=== PATIENT | female | born 1955 | race Caucasian/White ===

== ENCOUNTER 2022-09-08 09:37 | Emergency (ER) | payer MEDICARE, SELFPAY ==
[2022-09-08 09:45] VITALS: PULSE 86; RESP 16; O2SAT 70
[2022-09-08 09:47] VITALS: PULSE 98; RESP 16; O2SAT 73
[2022-09-08 09:53] VITALS: BP 129/64; O2SAT 90
--- NOTE | 2022-09-08 10:04 | ED.SOB ---
HPI - SOB/Dyspnea General Chief Complaint: Shortness of Breath/Dyspnea Stated Complaint: SOB Time Seen by Provider: 09/08/22 09:55 Source: patient, family, RN notes reviewed and old records reviewed Mode of arrival: ambulatory Limitations: clinical condition History of Present Illness HPI Narrative: 67 year old female accompanied by granddaughter presents to express care with stated complaints of patient having difficulty with breathing. 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 Grand daughter trying to get her established with doctor and get her Medicaid started. Patient states that they would not let her bring her home oxygen since she still owed on machine. Patient has history of COPD and was on oxygen per 3 L per nasal cannula prior to coming to [facility] and patient admits to continuing to use tobacco daily. Patient reports that she has been taking her Keppra, and her insulin and has an Albuterol inhaler but has been without other medications. On arrival to treatment room Oxygen Saturation 70%, dusky in color, accessory muscle use noted but not tachypneic, within 10 minute saturation up to 90%. Grand daughter states that she is not sure about all of grandmother's medical history, she does have a list of patient's medications on her phone. MD gill
[2022-09-08 10:07] VITALS: BP 126/74; RESP 17; O2SAT 93
== END 2022-09-08 10:07 | disposition short-term general hospital (02) ==
PROVIDERS: Emergency Provider Registered Nurse
DX: J44.1 Chronic obstructive pulmonary disease with (acute) exacerbation (principal); F17.210 Nicotine dependence, cigarettes, uncomplicated
CPT/HCPCS: 99215; G0463

== ENCOUNTER 2022-09-08 10:23 | Inpatient (IN) | payer MEDICARE, MEDICAID, SELFPAY ==
[2022-09-08] VITALS (43 sets, daily range): BP systolic 106–151; BP diastolic 49–85; PULSE 52–103; RESP 12–28; TEMP 36.4; O2SAT 80–100; BMI 20.2
--- NOTE | ~2022-09-08 | XR_ITS ---
EXAMINATION: XR chest 2V DATE: 09/08/2022 10:55 INDICATION: Shortness of breath. TECHNIQUE: Frontal and lateral views of the chest were obtained. COMPARISON: None. FINDINGS: The patient is rotated to her right. There are coarse interstitial opacities throughout the lungs bilaterally. There are airspace opacities in right middle lobe. No pleural effusion or pneumot horax. The heart size is normal. There is a left internal jugular port with tip in proximal right atr ium. Calcified mediastinal lymph nodes are consistent with old granulomatous disease. IMPRESSION: 1. Diffuse lung disease, consistent with pulmonary edema versus pneumonia versus chronic lung disease . Reviewed, dictated and finalized at location A. IMPRESSION: 1. Diffuse lung disease, consistent with pulmonary edema versus pneumonia versu s chronic lung disease.
--- NOTE | ~2022-09-08 | CT_ITS ---
EXAMINATION: CTA chest PE protocol DATE: 09/08/2022 16:06 INDICATION: Shortness of breath, history of lung cancer TECHNIQUE: Computed tomography angiography (CTA) of the chest was performed with 100 mL Omnipaque-350 intravenous contrast timed to evaluate the pulmonary arteries. Coronal maximum intensity projection 3D-reconstructions were created by the technologist. The dose-length product (DLP) was 167.88 mGy-cm. Automated exposure control and iterative reconstruction technique were employed. COMPARISON: None. FINDINGS: The pulmonary arteries are well-opacified. No pulmonary embolism is identified. There is mo derate emphysema. There are airspace opacities of the right upper, middle, and lower lobes as well as in the left upper and lower lobes. No pleural effusion or pneumothorax. The heart size is normal. Th ere is mild bilateral hilar lymphadenopathy. There are masses medially in both breasts which measure 12 mm in the left and up to 10 mm on the right. There is mild sclerosis in the posterior aspect of th e T9 vertebral body on the right which extends into the lamina. There is thickening of the left adren al gland. Punctate calcifications in an otherwise normal spleen likely represent healed granulomatous disease. A left internal jugular Port-A-Cath ends with its tip in the proximal right atrium. IMPRESSION: 1. No pulmonary embolus identified. 2. Multifocal airspace opacities of the lungs, likely multifocal pneumonia. Given patient's history o f lung cancer, an area of underlying malignancy is not excluded. Follow-up CT in three months is pey[place] mmended. 3. Bilateral breast masses. Recommend correlation with mammography history. 4. Mild sclerosis of the T9 vertebral body, possible metastatic disease. Reviewed, dictated and finalized at location F. IMPRESSION: 1. No pulmonary embolus identified. 2. Multifocal airspace opacities of the lungs, likely multifocal pneumonia. Giv en patient's history of lung cancer, an area of underlying malignancy is not ex cluded. Follow-up CT in three months is recommended. 3. Bilateral breast masses. Recommend correlation with mammography history. 4. Mild sclerosis of the T9 vertebral body, possible metastatic disease.
--- NOTE | 2022-09-08 10:28 | ECG_ITS ---
Measurements Intervals [place] Rate: 87 P: 64 MD: 164 QRS: 28 QRSD: 73 T: 41 QT: 330 QTc: 399 Interpretive Statements SINUS RHYTHM POSSIBLE LEFT ATRIAL ENLARGEMENT [-0.1mV P WAVE IN V1/V2] NONSPECIFIC ST & T-WAVE ABNORMALITY BORDERLINE ECG NO PREVIOUS ECG AVAILABLE FOR COMPARISON Electronically Signed On 09-08-2022 12:54:29 CDT by Jose Alcazar M.D.
[2022-09-08 10:56] LABS: Basophils Percent Auto 0.2 % (0.2-1.2); Eosinophils Percent Auto 0.1 % (0-4.4); Hematocrit 42.8 % (37.0-47.0); Hemoglobin 13.2 g/dL (12.0-15.0); Immature Granulocyte Absolute 0.09 K/mm3 (0.00-0.031); Immature Granulocyte Percent A 0.6 % (0-0.5); Lymphocytes Absolute Auto 0.82 K/mm3 (0.9-3.2); Lymphocytes Percent Auto 5.8 % (18.3-44.2); Mean Corpuscular HGB Conc 30.8 g/dl (32-36); Mean Corpuscular Hemoglobin 26.8 pg (26-34); Mean Corpuscular Volume 86.8 fl (80-100); Mean Platelet Volume 9.6 fl (7.4-10.4); Monocytes Absolute Auto 0.7 K/mm3 (0.1-0.6); Monocytes Percent Auto 4.6 % (2.6-8.5); Neutrophils Absolute Auto 12.7 K/mm3 (1.3-6.7); Neutrophils Percent Auto 88.7 % (45.5-73.1); Platelet Count Result 251 k/mm3 (150-375); Red Blood Count 4.93 M/mm3 (4.2-5.4); Red Cell Distribution Width 14.1 % (11.5-14.5); White Blood Count 14.3 K/mm3 (4.5-10.0)
[2022-09-08 11:16] LABS: Alanine Aminotransferase 29 U/L (6-35); Albumin Level 3.5 g/dL (3.5-5.1); Alkaline Phosphatase 169 U/L (38-126); Aspartate Amino Transferase 32 U/L (14-36); Blood Urea Nitrogen 33 mg/dL (7-17); Calcium 8.2 mg/dL (8.4-10.2); Carbon Dioxide > 40 mmol/L (22-30); Chloride 93 mmol/L (98-107); Estimated CRCL calculation 31 ml/min; Estimated Glomerular Filt Rate 49; Glucose 246 mg/dL (65-110); Potassium 3.8 mmol/L (3.4-5.0); Sodium 137 mmol/L (137-145)
[2022-09-08] MEDS: IPRATROPIUM BR 0.02% INH SOLN 0.5 MG/2.5 ML VIAL 1.5 MG INHALATION (12:06)
[2022-09-08] MEDS: ALBUTEROL SULFATE NEB 2.5 MG/3 ML INH 15 MG INHALATION (12:06)
[2022-09-08 12:17] LABS: Alveolar/Arterial O2 Gradient 134.3 mmHg; Base Excess ABG 8.1 mEq/l (+/-2.0); Carboxyhemoglobin 2.4 % THb (0-2.0); Fractional Inspired Oxygen 36 %; HCO3 ABG 34.2 mEq/l (22.0-26.0); Methemoglobin ABG 0.1 %THb (0-1.5); Oxygen Content ABG 16.7 %vol (16.0-22.0); Oxygen Saturation ABG 91.2 % (95.0-100.0); PCO2 ABG 53.6 mmHg (35.0-45.0); PO2 ABG 60.2 mmHg (80.0-100.0); PO2 FiO2 Ratio Arterial Blood 1.67 %; Total Hemoglobin 13.7 g/dL (12.0-18.0); pH ABG 7.423 (7.350-7.450)
[2022-09-08 12:20] LABS: Device NASAL CANNULA; Oxyhemoglobin 86.5 % THb (90.0-100.0); Site Drawn LEFT BRACHIAL
--- NOTE | 2022-09-08 13:48 | PCCCNOTE ---
CC received call from bedside RN inquiring about getting patient home oxygen tanks. CC spoke with patient whom states she moved here from [place] one month ago, and left her oxygen in [place]. CC got the phone # to patients DME provider [employer] , called and spoke with Anne. Per Anne, the DME company received a call from patient after she moved out of home and came to [place] that her equipment was outside her [place] home. [employer] was able to retrieve all the equipment however, per anne, was under the impression that patient was no longer using oxygen and they did not follow up with patient. patient arrived in this ED in resp. failure requiring home O2. Per Anne with [employer], patient started home o2 08/30/2019 and would now be in the black hole per medicare. Per Anne, typically the DME company would still provide the equipment for the patient even thought medicare was no longer paying. In this situation, Anne states that we would likely not be able to find another DME company that would accept patients Medicare due to being in the black hole . Anne stated that they would be able to send oxygen tanks to patient here in [place] but this could take 2-3 business days. CC will give this information to Respiratory whom will follow through arranging home oxygen for patient. Meanwhile patient will be admitting for resp. failure. CC will continue to follow for any other needs that may arise at ext [phone].
--- NOTE | 2022-09-08 14:10 | ED.GENADULT ---
HPI - General Adult General Chief complaint: Shortness of Breath/Dyspnea Stated complaint: SOB Time Seen by Provider: 09/08/22 10:26 History of Present Illness HPI narrative: Patient is a 67-year-old female who presents ER with shortness of breath. Patient reports she woke up this morning felt more short of breath than typical and went to an urgent care. Her O2 saturation there was 78% and she was sent to our ER. Patient recently moved here from [place]. She is chronically O2 dependent on 3 L of oxygen but her oxygen provider would not let her leave the state with the tanks and so she has been without oxygen for several weeks. Patient also reports that she has a cancer in the liver but does not know what the name of the cancer is. She has received chemotherapy for but his not received any for 3 weeks. She has not yet tried to establish with an oncologist or PCP in the area. She denies fevers or chills or sweats. No new cough but only a chronic cough. Related Data Home Medications Medication Instructions Recorded Confirmed albuterol 90 mcg/actuation aerosol mcg inhalation 09/08/22 inhaler digoxin 125 mcg (0.125 mg) tablet 125 mcg PO DAILY 09/08/22 09/08/22 furosemide 40 mg tablet 40 mg PO DAILY 09/08/22 09/08/22 gabapentin 100 mg capsule 100 mg PO DAILY 09/08/22 09/08/22 insulin detemir U-100 100 unit/mL 15 unit subcut DAILY 09/08/22 09/08/22 (3 mL) subcutaneous pen (Levemir FlexPen) isosorbide mononitrate 30 mg 30 mg PO DAILY 09/08/22 09/08/22 tablet,extended release 24 hr levetiracetam 500 mg tablet 500 mg PO BID 09/08/22 09/08/22 (Keppra) morphine 60 mg tablet,extended 60 mg PO Q12H 09/08/22 09/08/22 release omeprazole 40 mg capsule,delayed 40 mg PO DAILY 09/08/22 09/08/22 release prochlorperazine maleate 10 mg 10 mg PO Q6H 09/08/22 09/08/22 tablet prochlorperazine maleate 10 mg 10 mg PO QID 09/08/22 09/08/22 tablet rivaroxaban 2.5 mg tablet (Xarelto) 2.5 mg PO BID 09/08/22 09/08/22 rosuvastatin 10 mg tablet 10 mg PO DAILY 09/08/22 09/08/22 Allergies Allergy/AdvReac Type Severity Reaction Status Date / Time No Known Allergies Allergy Verified 09/08/22 10:14 Review of Systems Review of Systems: All systems reviewed & are unremarkable except as noted in HPI and below Constitutional: Constitutional: Denies chills, Denies fatigue and Denies fever(s) ENT: Denies nasal congestion and Denies sore throat Cardiovascular: Cardiovascular: Denies chest pain, Denies rapid heart rate and Denies radiating jaw, neck or arm pain Respiratory: Respiratory: Reports cough and Reports dyspnea Gastrointestinal: Gastrointestinal: Denies abdominal pain, Denies nausea and Denies vomiting PMFSH Past Medical History Medical History (Updated 09/08/22 @ 18:54 by Lang Wilson MD) COPD (chronic obstructive pulmonary disease) Port-A-Cath in place Family History Family History (Updated 09/08/22 @ 17:44 by Eladia Heard RN) Father Diabetes mellitus Myocardial infarct Mother Diabetes mellitus Cerebrovascular accident Myocardial infarct Social History Social History (Updated 09/08/22 @ 15:16 by Mehnaz Porter NP) Smoking packs per day: 1 Smoking cigarettes per day: 20.0 Years smoked: 55 Smoking pack-years: 55.00 Smoking status: Current every day smoker Tobacco type: cigarettes Alcohol intake: unknown Substance use: unknown Lack of Transportation: No Lack of Food: Never True Current Housing: I Have Housing Concerned About Future Housing: No Difficulty Paying Gas/Electric Bills: No Difficulty Paying for Meds: YES Currently Unemployed: YES Education: High School Diploma/GED Difficulty w/ Childcare or Family Care: No Living arrangements: with family Gender identity (if verbalized by the patient): Female Spiritual care concerns: No Exam Narrative: GENERAL: Chronically ill-appearing, well-nourished, and in no acute distress. HEAD: N
--- NOTE | 2022-09-08 15:11 | PM.IMHP ---
H&P: HPI History of Present Illness Date/Time: 09/08/22 17:00 Chief Complaint: Shortness of breath. Narrative: This is a 67-year-old female smoker with history of DVT, chronic respiratory failure on 3 L, chronic obstructive pulmonary disease, insulin-dependent diabetes, hypertension, hyperlipidemia, congestive heart failure-unknown type, adenocarcinoma of unknown primary diagnosed 12 years ago, and GERD who presented to the emergency department via EMS from urgent care for evaluation of shortness of breath. She moved to the area approximately 1 month ago and she has been staying with her granddaughter. She has been out of some of her medications and has been rationing others as she has yet to establish care with new doctors. She has also been without oxygen for the last several weeks. At baseline she avoids stairs and prefers to use a scooter while shopping at the grocery store. She will get winded doing everyday activities such as cooking and like cleaning. She has a chronic cough which occasionally is productive of clear sputum however recently she has had a worsening cough with cloudy sputum. More recently she has noticed increasing dyspnea on lesser and lesser exertion and her granddaughter encouraged her to go to the urgent care today. She was hypoxic with an SpO2 of 80% on room air and she was sent to the emergency department. She denies confusion, fever, chills, sweats, sinus congestion, sore throat, chest and pleuritic pain, palpitations, orthopnea, lower extremity edema, calf pain, paroxysmal nocturnal dyspnea, nausea, and vomiting. While in the emergency department she had increasing oxygen requirements and she is currently on 8 L high-flow nasal cannula at the time of my evaluation. Labs were significant for a WBC count of 14.3, serum carbon dioxide greater than 40, BUN 33, creatinine 1.10, glucose 300. ABG showed a pH of 7.423, pCO2 53.6, PO2 60.2, bicarb 34.2, carboxyhemoglobin 2.4, produce hemoglobin 11%. CTA of the chest was negative for pulmonary embolism but did no multifocal airspace opacities of the lungs, likely multifocal pneumonia at though malignancy not excluded, bilateral breast mass, and mild sclerosis of the T9 vertebral body, possibly metastatic disease. She has been started on antibiotics and she is being admitted in this setting for further treatment. Review of Systems Review of Systems: Twelve systems were reviewed and are negative except for as per HPI. PMFSH Past Medical History Medical History (Updated 09/09/22 @ 01:00 by Jackie Hansen PA-C) Chronic anticoagulation Chronic obstructive pulmonary disease Chronic respiratory failure with hypoxia Deep venous thrombosis Diabetic peripheral neuropathy Heart failure of unknown type Hyperlipidemia Hypertension Insulin dependent type 2 diabetes mellitus Metastatic adenocarcinoma to liver with unknown primary site Seizure disorder Surgical History Surgical History (Updated 09/09/22 @ 01:00 by Jackie Hansen PA-C) History of cholecystectomy History of liver biopsy History of open reduction and internal fixation (ORIF) procedure Repair right leg fracture Port-A-Cath in place Family History Family History Father Diabetes mellitus Myocardial infarct Mother Diabetes mellitus Cerebrovascular accident Myocardial infarct Social History Social History (Updated 09/09/22 @ 01:01 by Jackie Hansen PA-C) Social History: Surrogate medical decision maker: Jessenia Brar, granddaughter. Code status: Full code. Smoking packs per day: 1 Smoking cigarettes per day: 20.0 Years smoked: 55 Smoking pack-years: 55.00 Smoking status: Current every day smoker Tobacco type: cigarettes Alcohol intake: unknown Substance use: unknown Lack of Transportation: No Lack of Food: Never True Current Housing: I Have Housing Concerned About Future Housing: No Difficulty Paying Gas/El
[2022-09-08] MEDS: methylPREDNISolone SOD SUCC 125 MG VIAL IV PUSH (15:14)
[2022-09-08] MEDS: AZITHROMYCIN 500 MG/NS 250 ML 500 MG/250 ML BAG 250 MG IVPB (16:32)
[2022-09-08 22:22] LABS: Glucose Point of Care 300 mg/dl (65-105)
[2022-09-08] MEDS: INSULIN GLARGINE (LANTUS) 1,000 UNITS/10 ML VIAL 15 UNITS SUB-Q (22:44)
[2022-09-08 22:55] LABS: Hemoglobin A1C 6.8 % (<5.7)
[2022-09-08 23:05] LABS: Digoxin 0.8 ng/mL (0.8-2.0)
[2022-09-09] VITALS (29 sets, daily range): BP systolic 133–165; BP diastolic 37–56; PULSE 40–64; RESP 16–20; TEMP 36.2–36.6; O2SAT 86–100
--- NOTE | 2022-09-09 01:09 | ECHO_ITS ---
Patient Info Name: Moriah Lynn Age: 67 years : 1955 Gender: Female Ht: 60 in Wt: 118 lbs BSA: 1.51 m2 HR: 58 bpm Heart Rhythm: Sinus Rhythm Technical Quality: Fair Exam Date: 09/09/2022 9:45 AM Exam Location: [facility] Patient Status: Inpatient Admit Date: 09/08/2022 Staff Ordering Physician: Jackie Hansen PA-C [employer]adoop Admin: Mehrdad Driscoll RDCS Attending Provider: Ace Sotelo MD Referring Physician: Tyrone KITCHEN; Exam Type: CA echo doppler color flow Study Info Indications - hypoxia/chf/HTN Complete two-dimensional, color flow and Doppler transthoracic echocardiogram is performed. Summary 1. Complete two-dimensional, color flow and Doppler transthoracic echocardiogram is performed. 2. Normal left ventricular size and thickness with good contractility of all segments. Ejection fraction 60-65%. Grade 2 diastolic dysfunction is present. 3. No significant valve disease. 4. No pulmonary hypertension, estimated pulmonary arterial systolic pressure is 25 mmHg. 5. Normal sinus rhythm. Left Ventricle Left ventricular chamber dimension is normal. Left ventricular systolic function is normal, estimated at 60-65%. There is no increased left ventricular wall thickness. Left ventricular septal wall motion is normal. The left ventricular diastolic function is grade II diastolic dysfunction. Right Ventricle Right ventricular chamber dimension is normal. Right ventricular systolic function is normal. Left Atria Left atrial chamber dimension is normal. Right Atria Right atrial chamber dimension is normal. Aortic Valve The aortic valve is trileaflet. There is no aortic valve sclerosis. There is no aortic valve stenosis. There is no aortic valve regurgitation. Pulmonic Valve The pulmonic valve is normal. There is no pulmonic valve stenosis. There is no pulmonic regurgitation. Mitral Valve The mitral valve has normal leaflets. There is no mitral valve stenosis. There is trace mitral valve regurgitation. Tricuspid Valve The tricuspid valve leaflets are normal. There is no significant tricuspid valve stenosis. There is trace tricuspid valve regurgitation. No pulmonary hypertension, estimated pulmonary arterial systolic pressure is 25 mmHg. Pericardium/Pleural The pericardium appears normal. There is no pericardial effusion. Inferior Vena Cava Normal inferior vena cava with >50% collapse upon inspiration consistent with Empty right atrial pressure, 10 mmHg. Aorta The aortic root size at the sinus of Valsalva is normal. The prox ascending aorta size is normal. Left Ventricular Outflow Tract Name Value Normal LVOT 2D LVOT Diameter 1.9 cm LVOT Doppler LVOT Peak Gradient 5 mmHg LVOT Mean Gradient 2 mmHg LVOT VTI 29 cm LVOT VTI/AV VTI Ratio 0.8 LVOT Stroke Volume 85 ml LVOT CO 3.8 l/min LVOT CI 2.5 l/min/m2 Pulmonic Valve Name Value
[2022-09-09] MEDS: ALBUTEROL SULFATE NEB 2.5 MG/3 ML INH INHALATION ×4 (01:52→20:15)
[2022-09-09] MEDS: IPRATROPIUM BR 0.02% INH SOLN 0.5 MG/2.5 ML VIAL INHALATION ×4 (01:52→20:15)
[2022-09-09 02:24] LABS: Hematocrit 38.2 % (37.0-47.0); Hemoglobin 12.1 g/dL (12.0-15.0); Mean Corpuscular HGB Conc 31.7 g/dl (32-36); Mean Corpuscular Hemoglobin 27.4 pg (26-34); Mean Corpuscular Volume 86.4 fl (80-100); Mean Platelet Volume 9.2 fl (7.4-10.4); Platelet Count Result 205 k/mm3 (150-375); Red Blood Count 4.42 M/mm3 (4.2-5.4); Red Cell Distribution Width 14.1 % (11.5-14.5)
[2022-09-09 02:48] LABS: Anion Gap 4 mmol/L (8-16); Blood Urea Nitrogen 37 mg/dL (7-17); Calcium 8.1 mg/dL (8.4-10.2); Carbon Dioxide 38 mmol/L (22-30); Chloride 93 mmol/L (98-107); Estimated CRCL calculation 27 ml/min; Estimated Glomerular Filt Rate 41; Glucose 247 mg/dL (65-110); Potassium 4.2 mmol/L (3.4-5.0); Sodium 135 mmol/L (137-145)
[2022-09-09 03:16] LABS: Hemoglobin A1C 6.6 % (<5.7)
[2022-09-09 08:25] LABS: Glucose Point of Care 184 mg/dl (65-105)
[2022-09-09 08:39] LABS: Add Urine Microscopic? YES; Appearance Urine Clear (Clear); Bacteria Urine None Seen /hpf; Bilirubin Urine Negative (Negative); Blood Urine Trace (Negative); Color Urine Dark Yellow (Yellow); Glucose Urine UA Trace mg/dL (Negative); Ketones Urine Negative (Negative); Leukocyte Esterase Ur Negative LEU/UL (Negative); Nitrate Urine Negative (Negative); Protein Urine 3+ mg/dL (Negative); Specific Grav Ur 1.052 (1.001-1.035); Squamous Epithelial Cell Urine Few /hpf (Few); WBC Clumps Urine Present /HPF; WBC Urine 21-50 /hpf; pH Urine 5.5 (5.0-9.0)
[2022-09-09] MEDS: GABAPENTIN 100 MG CAPSULE PO ×2 (08:42→17:02)
[2022-09-09] MEDS: FUROSEMIDE 40 MG TABLET PO (08:42)
[2022-09-09] MEDS: levETIRAcetam 500 MG TABLET PO ×2 (08:42→20:20)
[2022-09-09] MEDS: RANOLAZINE 500 MG TAB.ER.12H PO ×2 (08:42→20:20)
[2022-09-09] MEDS: cilostazoL 50 MG TABLET PO ×2 (08:42→17:02)
[2022-09-09] MEDS: RIVAROXABAN 2.5 MG TABLET PO ×2 (08:42→17:03)
[2022-09-09] MEDS: ISOSORBIDE MONONITRATE 30 MG TAB.ER.24H PO ×2 (08:42→17:03)
[2022-09-09] MEDS: guaiFENesin 12 HR 600 MG TABCR PO ×2 (08:42→20:20)
[2022-09-09] MEDS: predniSONE 20 MG TABLET 40 MG PO (08:42)
[2022-09-09] MEDS: PANTOPRAZOLE 40 MG TABLET PO ×2 (08:42→20:20)
--- NOTE | 2022-09-09 10:38 | P.PNIM_ITS ---
Progress Note: A&P Assessment and Plan (1) Acute exacerbation of chronic obstructive pulmonary disease: Code(s): J44.1 - Chronic obstructive pulmonary disease with (acute) exacerbation Status: Acute Assessment and Plan: * Ceftriaxone and azithromycin begun 09/08/2022 * Continue antibiotics, steroids, bronchodilators, oxygen * Improving as of 09/09/2022 * Increase activity as tolerated (2) Acute and chronic respiratory failure with hypoxia: Code(s): J96.21 - Acute and chronic respiratory failure with hypoxia Status: Acute Assessment and Plan: * As above for COPD exacerbation * Wean oxygen as tolerated (3) Multifocal pneumonia: Code(s): J18.9 - Pneumonia, unspecified organism Status: Acute Assessment and Plan: * Legionella pneumococcal and mycoplasma assays pending * Azithromycin and ceftriaxone begun 09/08/2022 * Consider lymphangitic spread of CA as alternative dx (4) Heart failure of unknown type: Code(s): I50.9 - Heart failure, unspecified Status: Acute Assessment and Plan: * Continue furosemide (5) Insulin dependent type 2 diabetes mellitus: Code(s): E11.9 - Type 2 diabetes mellitus without complications; Z79.4 - [facility] (current) use of insulin Status: Acute Assessment and Plan: * Continue current diabetic regimen * 09/09 FBS 184 (6) Hypertension: Code(s): I10 - Essential (primary) hypertension Status: Acute Assessment and Plan: * Continue current regimen (7) Chronic anticoagulation: Code(s): 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 anticoagulants Status: Acute Assessment and Plan: * Continue low-dose rivaroxaban presumably for peripheral arterial disease (8) Metastatic adenocarcinoma to liver with unknown primary site: Code(s): C78.7 - Secondary malignant neoplasm of liver and intrahepatic bile duct; C80.1 - Malignant (primary) neoplasm, unspecified Status: Acute Assessment and Plan: * Will need outpatient follow-up * Bilateral breast masses are concerning (9) Seizure disorder: Code(s): G40.909 - Epilepsy, unspecified, not intractable, without status epilepticus Status: Acute Assessment and Plan: * Continue home Keppra Subjective Date/time seen: 09/09/22 10:38 Interval history: Follow-up for COPD exacerbation. Breathing much better today. Coughing but not bringing up any sputum yet. No fevers or chills. No longer short of breath at rest. Currently on 9 L of oxygen. Previously at home was on 3 L. but had been off oxygen for a few weeks after moving. Denied chest pain. Denied GI or issues. Denied focal weakness or numbness. No headache. No abnormal bleeding. Review of Systems Review of Systems: All systems reviewed & are unremarkable except as noted in HPI and below Exam Narrative: HEENT: PERRL, sclerae nonicteric, pharyngeal mucosa pink and intact NECK: No JVD, adenopathy, or thyromegaly CHEST: Mildly tachypneic with increased AP diameter and diffuse inspiratory and expiratory rhonchi HEART: NL S1/S2, regular, no murmur ABDOMEN: BS+, soft, nontender, no mass, no bruits EXTREMITIES: No cyanosis, edema, or clubbing NEUROLOGIC: CN intact and symmetric to inspection. MUSCULOSKELETAL: Tone and strength symmetric. PSYCH: Alert. Oriented to person, place, and time. Objective Data Vital Signs Vital Signs: Vital Signs - 24 hr 09/08/22 11:43
--- NOTE | 2022-09-09 10:38 | PM.IMPN ---
Progress Note: A&P Assessment and Plan (1) Acute exacerbation of chronic obstructive pulmonary disease: Code(s): J44.1 - Chronic obstructive pulmonary disease with (acute) exacerbation Status: Acute Assessment and Plan: Ceftriaxone and azithromycin begun 09/08/2022 Continue antibiotics, steroids, bronchodilators, oxygen Improving as of 09/09/2022 Increase activity as tolerated (2) Acute and chronic respiratory failure with hypoxia: Code(s): J96.21 - Acute and chronic respiratory failure with hypoxia Status: Acute Assessment and Plan: As above for COPD exacerbation Wean oxygen as tolerated (3) Multifocal pneumonia: Code(s): J18.9 - Pneumonia, unspecified organism Status: Acute Assessment and Plan: Legionella pneumococcal and mycoplasma assays pending Azithromycin and ceftriaxone begun 09/08/2022 Consider lymphangitic spread of CA as alternative dx (4) Heart failure of unknown type: Code(s): I50.9 - Heart failure, unspecified Status: Acute Assessment and Plan: Continue furosemide (5) Insulin dependent type 2 diabetes mellitus: Code(s): E11.9 - Type 2 diabetes mellitus without complications; Z79.4 - termite helper (current) use of insulin Status: Acute Assessment and Plan: Continue current diabetic regimen 09/09 FBS 184 (6) Hypertension: Code(s): I10 - Essential (primary) hypertension Status: Acute Assessment and Plan: Continue current regimen (7) Chronic anticoagulation: Code(s): Z79.01 - retirement (current) use of anticoagulants Status: Acute Assessment and Plan: Continue low-dose rivaroxaban presumably for peripheral arterial disease (8) Metastatic adenocarcinoma to liver with unknown primary site: Code(s): C78.7 - Secondary malignant neoplasm of liver and intrahepatic bile duct; C80.1 - Malignant (primary) neoplasm, unspecified Status: Acute Assessment and Plan: Will need outpatient follow-up Bilateral breast masses are concerning (9) Seizure disorder: Code(s): G40.909 - Epilepsy, unspecified, not intractable, without status epilepticus Status: Acute Assessment and Plan: Continue home Keppra Subjective Date/time seen: 09/09/22 10:38 Interval history: Follow-up for COPD exacerbation. Breathing much better today. Coughing but not bringing up any sputum yet. No fevers or chills. No longer short of breath at rest. Currently on 9 L of oxygen. Previously at home was on 3 L. but had been off oxygen for a few weeks after moving. Denied chest pain. Denied GI or issues. Denied focal weakness or numbness. No headache. No abnormal bleeding. Review of Systems Review of Systems: All systems reviewed & are unremarkable except as noted in HPI and below Exam Narrative: HEENT: PERRL, sclerae nonicteric, pharyngeal mucosa pink and intact NECK: No JVD, adenopathy, or thyromegaly CHEST: Mildly tachypneic with increased AP diameter and diffuse inspiratory and expiratory rhonchi HEART: NL S1/S2, regular, no murmur ABDOMEN: BS+, soft, nontender, no mass, no bruits EXTREMITIES: No cyanosis, edema, or clubbing NEUROLOGIC: CN intact and symmetric to inspection. MUSCULOSKELETAL: Tone and strength symmetric. PSYCH: Alert. Oriented to person, place, and time. Objective Data Vital Signs Vital Signs: Vital Signs - 24 hr 09/08/22 11:43 09/08/22 12:07 09/08/22 12:01 Temperature Pulse Rate 75 64 62 Respiratory Rate 22 H 19 14 Blood Pressure 113/62 129/49 L Pulse Oximetry 94 92 Oxygen Delivery Oxygen Flow Rate 09/08/22 12:31 09/08/22 13:18 09/08/22 13:19 Temperature Pulse Rate 74 100 97 Respiratory Rate 15 17 15 Blood Pressure 121/58 L 118/56 L Pulse Oximetry 100 95 Oxygen Delivery Oxygen Flow Rate 09/08/22 13:25 09/08/22 13:30 09/08/22 13:35 Temperature Pulse Rate 92 93 93 Respiratory Rat
[2022-09-09 12:13] LABS: Glucose Point of Care 223 mg/dl (65-105)
[2022-09-09] MEDS: INSULIN ASPART (*BKC) 100 UNITS/ML SUB-Q ×2 (12:20→17:03)
[2022-09-09 17:00] LABS: Glucose Point of Care 295 mg/dl (65-105)
[2022-09-09] MEDS: AZITHROMYCIN 500 MG/NS 250 ML 500 MG/250 ML BAG 250 MG IVPB (17:46)
[2022-09-09 19:41] LABS: Glucose Point of Care 200 mg/dl (65-105)
[2022-09-09] MEDS: ROSUVASTATIN 10 MG TABLET PO (20:20)
[2022-09-09] MEDS: INSULIN GLARGINE (LANTUS) 1,000 UNITS/10 ML VIAL 15 UNITS SUB-Q (20:21)
[2022-09-10] VITALS (17 sets, daily range): BP systolic 150–170; BP diastolic 48–72; PULSE 43–90; RESP 14–26; TEMP 35.8–36.6; O2SAT 90–100
--- NOTE | 2022-09-10 04:19 | PCRCNOTE ---
Patient refused 0200 treatment due to wanting sleep. Updraft treatment to resume at 0800.
[2022-09-10] MEDS: IPRATROPIUM BR 0.02% INH SOLN 0.5 MG/2.5 ML VIAL INHALATION ×3 (07:45→19:31)
[2022-09-10] MEDS: ALBUTEROL SULFATE NEB 2.5 MG/3 ML INH INHALATION ×3 (07:45→19:31)
[2022-09-10 08:21] LABS: Glucose Point of Care 151 mg/dl (65-105)
[2022-09-10] MEDS: GABAPENTIN 100 MG CAPSULE PO ×2 (08:58→18:10)
[2022-09-10] MEDS: PANTOPRAZOLE 40 MG TABLET PO ×2 (08:58→20:12)
[2022-09-10] MEDS: FUROSEMIDE 40 MG TABLET PO (08:58)
[2022-09-10] MEDS: ISOSORBIDE MONONITRATE 30 MG TAB.ER.24H PO ×2 (08:58→18:10)
[2022-09-10] MEDS: levETIRAcetam 500 MG TABLET PO ×2 (08:58→20:12)
[2022-09-10] MEDS: RIVAROXABAN 2.5 MG TABLET PO ×2 (08:58→18:10)
[2022-09-10] MEDS: guaiFENesin 12 HR 600 MG TABCR PO ×2 (08:58→20:04)
[2022-09-10] MEDS: RANOLAZINE 500 MG TAB.ER.12H PO ×2 (08:58→20:13)
[2022-09-10] MEDS: cilostazoL 50 MG TABLET PO ×2 (08:58→18:09)
[2022-09-10] MEDS: predniSONE 20 MG TABLET 40 MG PO (08:59)
--- NOTE | 2022-09-10 09:11 | P.PNIM_ITS ---
Progress Note: A&P Assessment and Plan (1) Acute exacerbation of chronic obstructive pulmonary disease: Code(s): J44.1 - Chronic obstructive pulmonary disease with (acute) exacerbation Status: Acute Assessment and Plan: * Ceftriaxone and azithromycin begun 09/08/2022 * Continue antibiotics, steroids, bronchodilators, oxygen * Improving as of 09/10/2022, so transferred to medical floor * Increase activity as tolerated (2) Acute and chronic respiratory failure with hypoxia: Code(s): J96.21 - Acute and chronic respiratory failure with hypoxia Status: Acute Assessment and Plan: * As above for COPD exacerbation * Wean oxygen as tolerated (3) Multifocal pneumonia: Code(s): J18.9 - Pneumonia, unspecified organism Status: Acute Assessment and Plan: * Legionella pneumococcal and mycoplasma assays pending * Azithromycin and ceftriaxone begun 09/08/2022 * Consider lymphangitic spread of CA as alternative dx (4) Heart failure of unknown type: Code(s): I50.9 - Heart failure, unspecified Status: Acute Assessment and Plan: * Continue furosemide (5) Insulin dependent type 2 diabetes mellitus: Code(s): E11.9 - Type 2 diabetes mellitus without complications; Z79.4 - halfway (current) use of insulin Status: Acute Assessment and Plan: * Continue current diabetic regimen * 09/09 FBS 184, 09/10 151 (6) Hypertension: Qualifiers: Hypertension type: unspecified Qualified Code(s): I10 - Essential (primary) hypertension Code(s): I10 - Essential (primary) hypertension Status: Acute Assessment and Plan: * Continue current regimen (7) Chronic anticoagulation: Code(s): Z79.01 - halfway (current) use of anticoagulants Status: Acute Assessment and Plan: * Continue low-dose rivaroxaban presumably for peripheral arterial disease (8) Metastatic adenocarcinoma to liver with unknown primary site: Code(s): C78.7 - Secondary malignant neoplasm of liver and intrahepatic bile duct; C80.1 - Malignant (primary) neoplasm, unspecified Status: Acute Assessment and Plan: * Will need outpatient follow-up * Bilateral breast masses are concerning (9) Seizure disorder: Code(s): G40.909 - Epilepsy, unspecified, not intractable, without status epilepticus Status: Acute Assessment and Plan: * Continue home Kefrancescara Subjective Date/time seen: 06/11/23 09:11 Interval history: Follow-up for COPD exacerbation. Breathing better today. Coughing but not bringing up any sputum yet. No fevers or chills. No longer short of breath at rest. Currently on 5 L of oxygen. Previously at home was on 3 L. but had been off oxygen for a few weeks after moving. Denied chest pain. Denied GI or issues. Denied focal weakness or numbness. No headache. No abnormal bleeding. Review of Systems Review of Systems: All systems reviewed & are unremarkable except as noted in HPI and below Exam Narrative: HEENT: PERRL, sclerae nonicteric, pharyngeal mucosa pink and intact NECK: No JVD CHEST: Mildly tachypneic with increased AP diameter and diffuse inspiratory and expiratory rhonchi HEART: NL S1/S2, regular, no murmur ABDOMEN: BS+, soft, nontender, no mass, no bruits EXTREMITIES: No cyanosis, edema, or clubbing NEUROLOGIC: CN intact and symmetric to inspection. MUSCULOSKELETAL: Tone and strength symmetric. PSYCH: Alert. Oriented to person, place, and time. Objective D
--- NOTE | 2022-09-10 09:11 | PM.IMPN ---
Progress Note: A&P Assessment and Plan (1) Acute exacerbation of chronic obstructive pulmonary disease: Code(s): J44.1 - Chronic obstructive pulmonary disease with (acute) exacerbation Status: Acute Assessment and Plan: Ceftriaxone and azithromycin begun 09/08/2022 Continue antibiotics, steroids, bronchodilators, oxygen Improving as of 09/10/2022, so transferred to medical floor Increase activity as tolerated (2) Acute and chronic respiratory failure with hypoxia: Code(s): J96.21 - Acute and chronic respiratory failure with hypoxia Status: Acute Assessment and Plan: As above for COPD exacerbation Wean oxygen as tolerated (3) Multifocal pneumonia: Code(s): J18.9 - Pneumonia, unspecified organism Status: Acute Assessment and Plan: Legionella pneumococcal and mycoplasma assays pending Azithromycin and ceftriaxone begun 09/08/2022 Consider lymphangitic spread of CA as alternative dx (4) Heart failure of unknown type: Code(s): I50.9 - Heart failure, unspecified Status: Acute Assessment and Plan: Continue furosemide (5) Insulin dependent type 2 diabetes mellitus: Code(s): E11.9 - Type 2 diabetes mellitus without complications; Z79.4 - penitentiary (current) use of insulin Status: Acute Assessment and Plan: Continue current diabetic regimen 09/09 FBS 184, 09/10 151 (6) Hypertension: Qualifiers: Hypertension type: unspecified Qualified Code(s): I10 - Essential (primary) hypertension Code(s): I10 - Essential (primary) hypertension Status: Acute Assessment and Plan: Continue current regimen (7) Chronic anticoagulation: Code(s): Z79.01 - long term (current) use of anticoagulants Status: Acute Assessment and Plan: Continue low-dose rivaroxaban presumably for peripheral arterial disease (8) Metastatic adenocarcinoma to liver with unknown primary site: Code(s): C78.7 - Secondary malignant neoplasm of liver and intrahepatic bile duct; C80.1 - Malignant (primary) neoplasm, unspecified Status: Acute Assessment and Plan: Will need outpatient follow-up Bilateral breast masses are concerning (9) Seizure disorder: Code(s): G40.909 - Epilepsy, unspecified, not intractable, without status epilepticus Status: Acute Assessment and Plan: Continue home Keppra Subjective Date/time seen: 09/10/22 09:11 Interval history: Follow-up for COPD exacerbation. Breathing better today. Coughing but not bringing up any sputum yet. No fevers or chills. No longer short of breath at rest. Currently on 5 L of oxygen. Previously at home was on 3 L. but had been off oxygen for a few weeks after moving. Denied chest pain. Denied GI or issues. Denied focal weakness or numbness. No headache. No abnormal bleeding. Review of Systems Review of Systems: All systems reviewed & are unremarkable except as noted in HPI and below Exam Narrative: HEENT: PERRL, sclerae nonicteric, pharyngeal mucosa pink and intact NECK: No JVD CHEST: Mildly tachypneic with increased AP diameter and diffuse inspiratory and expiratory rhonchi HEART: NL S1/S2, regular, no murmur ABDOMEN: BS+, soft, nontender, no mass, no bruits EXTREMITIES: No cyanosis, edema, or clubbing NEUROLOGIC: CN intact and symmetric to inspection. MUSCULOSKELETAL: Tone and strength symmetric. PSYCH: Alert. Oriented to person, place, and time. Objective Data Vital Signs Vital Signs: Vital Signs - 24 hr 09/09/22 09:20 09/09/22 10:00 09/09/22 12:00 Temperature 97.1 F L Pulse Rate 47 L 59 L Respiratory Rate 16 Blood Pressure 153/45 H Pulse Oximetry 90 97 Oxygen Delivery High Flow Nasal Cannula Oxygen Flow Rate 9 09/09/22 12:00 09/09/22 12:00 09/09/22 14:20 Temperature Pulse Rate 48 L 62 Respiratory Rate 18 Blood Pressure Pulse Oximetry 93 Oxygen Delivery H
--- NOTE | 2022-09-10 12:09 | PHAR ---
The patient's home med of Everolimus tab 7.5mg has been verified.
--- NOTE | 2022-09-10 12:19 | PC.NURSE ---
This patient, Moriah Lynn, was transferred to [facility] on 09/10/22 at 1215. Personal belongings sent with patient. Report given to Cherry CARTER. Appropriate documentation sent with patient.
[2022-09-10 12:27] LABS: Glucose Point of Care 191 mg/dl (65-105)
[2022-09-10 13:10] LABS: Hematocrit 40.9 % (37.0-47.0); Hemoglobin 12.8 g/dL (12.0-15.0); Mean Corpuscular HGB Conc 31.3 g/dl (32-36); Mean Corpuscular Hemoglobin 27.4 pg (26-34); Mean Corpuscular Volume 87.4 fl (80-100); Platelet Count Result 250 k/mm3 (150-375); Red Blood Count 4.68 M/mm3 (4.2-5.4); Red Cell Distribution Width 13.8 % (11.5-14.5); White Blood Count 13.1 K/mm3 (4.5-10.0)
[2022-09-10 13:39] LABS: Albumin Level 3.3 g/dL (3.5-5.1); Blood Urea Nitrogen 35 mg/dL (7-17); Calcium 8.4 mg/dL (8.4-10.2); Carbon Dioxide > 40 mmol/L (22-30); Chloride 95 mmol/L (98-107); Estimated CRCL calculation 34 ml/min; Estimated Glomerular Filt Rate 55; Glucose 186 mg/dL (65-110); Phosphorus 3.4 mg/dL (2.5-4.5); Sodium 137 mmol/L (137-145)
--- NOTE | 2022-09-10 15:10 | ADMGEN ---
This patient, Moriah Lynn, was admitted to 3 [facility] Surg Room 322-02 @ 1220. Patient/family oriented to hospital policies and general routines including ID bracelet, bed and alarms, visiting hours, pain management, procedures, bathroom and other care routines, personal items, smoking policy, room service/diet, and visiting hours. Information on how to activate the Rapid Response Team has been discussed. Patient/Family are encouraged to report perceived risks to care and to ask questions if they do not understand what they are told or what they should do.
[2022-09-10 16:26] LABS: Glucose Point of Care 220 mg/dl (65-105)
[2022-09-10] MEDS: AZITHROMYCIN 500 MG/NS 250 ML 500 MG/250 ML BAG 250 MG IVPB (18:15)
[2022-09-10 20:09] LABS: Glucose Point of Care 199 mg/dl (65-105)
[2022-09-10] MEDS: INSULIN GLARGINE (LANTUS) 1,000 UNITS/10 ML VIAL 15 UNITS SUB-Q (20:10)
[2022-09-10] MEDS: ROSUVASTATIN 10 MG TABLET PO (20:12)
[2022-09-11] VITALS (20 sets, daily range): BP systolic 143–163; BP diastolic 6–80; PULSE 53–103; RESP 14–18; TEMP 35.6–36.1; O2SAT 86–100
[2022-09-11] MEDS: ALBUTEROL SULFATE NEB 2.5 MG/3 ML INH INHALATION ×4 (02:16→20:37)
[2022-09-11] MEDS: IPRATROPIUM BR 0.02% INH SOLN 0.5 MG/2.5 ML VIAL INHALATION ×4 (02:17→20:37)
[2022-09-11 06:14] LABS: Hematocrit 42.7 % (37.0-47.0); Hemoglobin 13.7 g/dL (12.0-15.0); Mean Corpuscular HGB Conc 32.1 g/dl (32-36); Mean Corpuscular Hemoglobin 27.3 pg (26-34); Mean Corpuscular Volume 85.2 fl (80-100); Mean Platelet Volume 9.1 fl (7.4-10.4); Platelet Count Result 278 k/mm3 (150-375); Red Blood Count 5.01 M/mm3 (4.2-5.4); Red Cell Distribution Width 13.7 % (11.5-14.5); White Blood Count 11.9 K/mm3 (4.5-10.0)
[2022-09-11 06:30] LABS: Albumin Level 3.3 g/dL (3.5-5.1); Blood Urea Nitrogen 30 mg/dL (7-17); Calcium 8.5 mg/dL (8.4-10.2); Carbon Dioxide > 40 mmol/L (22-30); Chloride 96 mmol/L (98-107); Estimated CRCL calculation 42 ml/min; Estimated Glomerular Filt Rate > 60; Glucose 107 mg/dL (65-110); Phosphorus 3.8 mg/dL (2.5-4.5); Potassium 3.4 mmol/L (3.4-5.0); Sodium 140 mmol/L (137-145)
[2022-09-11 07:33] LABS: Glucose Point of Care 113 mg/dl (65-105)
[2022-09-11] MEDS: ISOSORBIDE MONONITRATE 30 MG TAB.ER.24H PO ×2 (08:53→17:51)
[2022-09-11] MEDS: predniSONE 20 MG TABLET 40 MG PO (08:53)
[2022-09-11] MEDS: cilostazoL 50 MG TABLET PO ×2 (08:53→17:51)
[2022-09-11] MEDS: PANTOPRAZOLE 40 MG TABLET PO ×2 (08:54→20:34)
[2022-09-11] MEDS: levETIRAcetam 500 MG TABLET PO ×2 (08:54→20:35)
[2022-09-11] MEDS: guaiFENesin 12 HR 600 MG TABCR PO ×2 (08:54→20:33)
[2022-09-11] MEDS: RANOLAZINE 500 MG TAB.ER.12H PO ×2 (08:54→20:34)
[2022-09-11] MEDS: RIVAROXABAN 2.5 MG TABLET PO ×2 (08:54→17:53)
[2022-09-11] MEDS: FUROSEMIDE 40 MG TABLET PO (08:54)
[2022-09-11] MEDS: GABAPENTIN 100 MG CAPSULE PO ×2 (08:54→17:53)
[2022-09-11 11:18] LABS: Glucose Point of Care 144 mg/dl (65-105)
--- NOTE | 2022-09-11 14:54 | HOMEO2EVAL ---
Evaluation was performed at [facility] Home Oxygen Evaluation RC: Home Oxygen (O2) Evaluation Start: 09/11/22 12:21 Freq: ONCE Status: Active Protocol: RPE Activity Type Activity Date Activity User E-sign Co-sign Detail Recorded Client Recorded Date Recorded By Document 09/11/22 14:30 AXEL [email or web address] 09/11/22 14:54 AXEL Document 09/11/22 14:31 [email or web address] [email or web address] 09/11/22 14:54 AXEL Document 09/11/22 14:32 [email or web address] [email or web address] 09/11/22 14:54 AXEL Document 09/11/22 14:33 [email or web address] [email or web address] 09/11/22 14:54 AXEL Document 09/11/22 14:35 [email or web address] [email or web address] 09/11/22 14:54 AXEL Document 09/11/22 14:36 [email or web address] [email or web address] 09/11/22 14:54 AXEL Document 09/11/22 14:45 [email or web address] [email or web address] 09/11/22 14:54 AXEL 09/11/22 09/11/22 09/11/22 14:30 14:31 14:32 Home O2 Evaluation [Oxygen] -Test Phase Resting Resting Resting -Oxygen Delivery Room Air Nasal Cannula Nasal Cannula -Oxygen Flow Rate (L/min) 1 2 [Pulse Oximetry] -Pulse Oximetry (90-100 %) 86 L 86 L 87 L [Comments] -Home Oxygen Evaluation Comments [Charges] -Treatment Charges O2 Evaluation - Inpatient 09/11/22 09/11/22 09/11/22 14:33 14:35 14:36 Home O2 Evaluation [Oxygen] -Test Phase Resting Exercise Exercise -Oxygen Delivery Nasal Cannula Nasal Cannula Nasal Cannula -Oxygen Flow Rate (L/min) 3 3 4 [Pulse Oximetry] -Pulse Oximetry (90-100 %) 91 87 L 90 [Comments] -Home Oxygen Evaluation Comments PT REQUIRES 3 L AT REST AND 4 L WITH ACTIVITY [Charges] -Treatment Charges 09/11/22 14:45 Home O2 Evaluation [Oxygen] -Test Phase Resting -Oxygen Delivery Nasal Cannula -Oxygen Flow Rate (L/min) 3 [Pulse Oximetry] -Pulse Oximetry (90-100 %) 92 [Comments] -Home Oxygen Evaluation Comments [Charges] -Treatment Charges
--- NOTE | 2022-09-11 16:02 | P.PNIM_ITS ---
Progress Note: A&P Assessment and Plan (1) Acute exacerbation of chronic obstructive pulmonary disease: Code(s): J44.1 - Chronic obstructive pulmonary disease with (acute) exacerbation Status: Acute Assessment and Plan: * Likely exacerbated by not being on required home oxygen * Continue p.o. prednisone * Continue IV ceftriaxone and azithromycin * Continue bronchodilators * Significant clinical improvement noted today * Increase activity as tolerated * Discharge with home oxygen can be arranged (2) Acute and chronic respiratory failure with hypoxia: Code(s): J96.21 - Acute and chronic respiratory failure with hypoxia Status: Acute Assessment and Plan: * Patient typically on 3 L supplemental O2. * Home oxygen was discontinued after she moved to the area from [place]. Has been off oxygen for 1 month * Home O2 eval completed today. Patient requires 3 L at rest and 4 L with activity * Awaiting home oxygen DME (3) Multifocal pneumonia: Code(s): J18.9 - Pneumonia, unspecified organism Status: Acute Assessment and Plan: * Continue ceftriaxone azithromycin, started 09/08/2022 * Legionella and pneumococcal and mycoplasma assays pending * Supportive care (4) Heart failure of unknown type: Code(s): I50.9 - Heart failure, unspecified Status: Acute Assessment and Plan: * Clinically compensated at this time * Continue furosemide (5) Insulin dependent type 2 diabetes mellitus: Code(s): E11.9 - Type 2 diabetes mellitus without complications; Z79.4 - half-way (current) use of insulin Status: Acute Assessment and Plan: * Blood sugars are reasonably controlled while on steroids * Continue Accu-Cheks, sliding scale insulin, hypoglycemic protocol (6) Hypertension: Qualifiers: Hypertension type: unspecified Qualified Code(s): I10 - Essential (primary) hypertension Code(s): I10 - Essential (primary) hypertension Status: Acute Assessment and Plan: * Blood pressures are stable * Continue home antihypertensives (7) Chronic anticoagulation: Code(s): Z79.01 - manager terminal (current) use of anticoagulants Status: Acute Assessment and Plan: * Continue low-dose rivaroxaban presumably for peripheral arterial disease (8) Metastatic adenocarcinoma to liver with unknown primary site: Code(s): C78.7 - Secondary malignant neoplasm of liver and intrahepatic bile duct; C80.1 - Malignant (primary) neoplasm, unspecified Status: Acute Assessment and Plan: * Will need outpatient follow-up * Bilateral breast masses noted on imaging are concerning for metastatic spread (9) Seizure disorder: Code(s): G40.909 - Epilepsy, unspecified, not intractable, without status epilepticus Status: Acute Assessment and Plan: * Continue home Mejiara Subjective Date/time seen: 09/11/22 16:02 Interval history: Date of service: 09/11/2022 Moriah Lynn is a 67-year-old female with a history of COPD, chronic respiratory failure on 3 L supplemental O2) has been off oxygen at home for approximately 1 month since moving from [place]), hypertension, type 2 diabetes mellitus, seizure disorder who is seen in follow-up for COPD exacerbation. Patient states that she is feeling improved today, about 90% better. She denies any wheezing. No cough. No chest pain. She is eager for discharge home. States that if she is not discharged, she was signed
--- NOTE | 2022-09-11 16:02 | PM.IMPN ---
Progress Note: A&P Assessment and Plan (1) Acute exacerbation of chronic obstructive pulmonary disease: Code(s): J44.1 - Chronic obstructive pulmonary disease with (acute) exacerbation Status: Acute Assessment and Plan: Likely exacerbated by not being on required home oxygen Continue p.o. prednisone Continue IV ceftriaxone and azithromycin Continue bronchodilators Significant clinical improvement noted today Increase activity as tolerated Discharge with home oxygen can be arranged (2) Acute and chronic respiratory failure with hypoxia: Code(s): J96.21 - Acute and chronic respiratory failure with hypoxia Status: Acute Assessment and Plan: Patient typically on 3 L supplemental O2. Home oxygen was discontinued after she moved to the area from [place]. Has been off oxygen for 1 month Home O2 eval completed today. Patient requires 3 L at rest and 4 L with activity Awaiting home oxygen DME (3) Multifocal pneumonia: Code(s): J18.9 - Pneumonia, unspecified organism Status: Acute Assessment and Plan: Continue ceftriaxone azithromycin, started 09/08/2022 Legionella and pneumococcal and mycoplasma assays pending Supportive care (4) Heart failure of unknown type: Code(s): I50.9 - Heart failure, unspecified Status: Acute Assessment and Plan: Clinically compensated at this time Continue furosemide (5) Insulin dependent type 2 diabetes mellitus: Code(s): E11.9 - Type 2 diabetes mellitus without complications; Z79.4 - long term care administrator (current) use of insulin Status: Acute Assessment and Plan: Blood sugars are reasonably controlled while on steroids Continue Accu-Cheks, sliding scale insulin, hypoglycemic protocol (6) Hypertension: Qualifiers: Hypertension type: unspecified Qualified Code(s): I10 - Essential (primary) hypertension Code(s): I10 - Essential (primary) hypertension Status: Acute Assessment and Plan: Blood pressures are stable Continue home antihypertensives (7) Chronic anticoagulation: Code(s): Z79.01 - half-way (current) use of anticoagulants Status: Acute Assessment and Plan: Continue low-dose rivaroxaban presumably for peripheral arterial disease (8) Metastatic adenocarcinoma to liver with unknown primary site: Code(s): C78.7 - Secondary malignant neoplasm of liver and intrahepatic bile duct; C80.1 - Malignant (primary) neoplasm, unspecified Status: Acute Assessment and Plan: Will need outpatient follow-up Bilateral breast masses noted on imaging are concerning for metastatic spread (9) Seizure disorder: Code(s): G40.909 - Epilepsy, unspecified, not intractable, without status epilepticus Status: Acute Assessment and Plan: Continue home Keren Subjective Date/time seen: 09/11/22 16:02 Interval history: Date of service: 09/11/2022 Moriah Lynn is a 67-year-old female with a history of COPD, chronic respiratory failure on 3 L supplemental O2) has been off oxygen at home for approximately 1 month since moving from [place]), hypertension, type 2 diabetes mellitus, seizure disorder who is seen in follow-up for COPD exacerbation. Patient states that she is feeling improved today, about 90% better. She denies any wheezing. No cough. No chest pain. She is eager for discharge home. States that if she is not discharged, she was signed out against medical advice. Unfortunately, there has been issues with arranging home oxygen. Patient cannot be discharged home without home oxygen as she requires 3 L at rest and 4 L with activity. Care coordination working to arrange home oxygen Review of Systems Review of Systems: All systems reviewed & are unremarkable except as noted in HPI and below Exam Narrative: General: Thin, frail 59-year-old female, sitting up in bed, comfor
[2022-09-11 16:47] LABS: Glucose Point of Care 177 mg/dl (65-105)
[2022-09-11] MEDS: AZITHROMYCIN 500 MG/NS 250 ML 500 MG/250 ML BAG 100 MG IVPB (17:50)
[2022-09-11] MEDS: INSULIN GLARGINE (LANTUS) 1,000 UNITS/10 ML VIAL 15 UNITS SUB-Q (20:35)
[2022-09-11] MEDS: ROSUVASTATIN 10 MG TABLET PO (20:35)
[2022-09-11] MEDS: INSULIN ASPART (*BKC) 100 UNITS/ML SUB-Q (20:36)
[2022-09-11 20:44] LABS: Glucose Point of Care 214 mg/dl (65-105)
[2022-09-12] VITALS (7 sets, daily range): BP systolic 151; BP diastolic 48; PULSE 71–91; RESP 18–22; TEMP 36.3; O2SAT 91–99
[2022-09-12] MEDS: IPRATROPIUM BR 0.02% INH SOLN 0.5 MG/2.5 ML VIAL INHALATION ×2 (02:37→08:08)
[2022-09-12] MEDS: ALBUTEROL SULFATE NEB 2.5 MG/3 ML INH INHALATION ×2 (02:37→08:08)
[2022-09-12 06:30] LABS: Hematocrit 45.6 % (37.0-47.0); Hemoglobin 14.7 g/dL (12.0-15.0); Mean Corpuscular HGB Conc 32.2 g/dl (32-36); Mean Corpuscular Volume 83.8 fl (80-100); Platelet Count Result 311 k/mm3 (150-375); Red Blood Count 5.44 M/mm3 (4.2-5.4); Red Cell Distribution Width 13.4 % (11.5-14.5); White Blood Count 10.1 K/mm3 (4.5-10.0)
[2022-09-12 06:42] LABS: Blood Urea Nitrogen 29 mg/dL (7-17); Calcium 8.6 mg/dL (8.4-10.2); Carbon Dioxide > 40 mmol/L (22-30); Chloride 94 mmol/L (98-107); Estimated CRCL calculation 42 ml/min; Estimated Glomerular Filt Rate > 60; Glucose 121 mg/dL (65-110); Potassium 3.1 mmol/L (3.4-5.0); Sodium 138 mmol/L (137-145)
[2022-09-12 07:39] LABS: Glucose Point of Care 106 mg/dl (65-105)
--- NOTE | 2022-09-12 08:14 | PCRCNOTE ---
Home O2 will be arranged with [facility]. I will give her a tank to transport home with, once D/C they are to call [facility] to set up concentrator. I have spoke to DME in [place], Ann Marie Sawyer. This DME has her under contract for nearly 3 years, with a 5 year minimum service requirement per Medicare guidelines...under medicare guidelines, [facility] [employer] is supposed to bill her for three years, but provide O2 services for 5 years. Therefore, [facility] [employer] has mailed out a concentrator to her, which will take a few days to arrive. But- they are unable to provide her with portable O2 tanks. The do not have portable o2 concentrators, and they have no other DME affiliations to transfer her service to. This means that if this patient leaves the home, she would have to purchase/rent out portable tanks with a local DME and refill as needed, costing approx $25 each. Had the patient arranged to O2 properly prior to the move, there may have been a more sensible way to transfer this service. [facility] will service this patient. They will bring a home concentrator out today, PATIENT MUST MAIL BACK [employer]. [facility] cannot be responsible to for returning concentrator. Any questions please contact Helen, PFT lab [phone]
[2022-09-12] MEDS: predniSONE 20 MG TABLET 40 MG PO (08:54)
[2022-09-12] MEDS: PANTOPRAZOLE 40 MG TABLET PO (08:54)
[2022-09-12] MEDS: ISOSORBIDE MONONITRATE 30 MG TAB.ER.24H PO (08:54)
[2022-09-12] MEDS: RIVAROXABAN 2.5 MG TABLET PO (08:54)
[2022-09-12] MEDS: POTASSIUM CHLORIDE 20 MEQ ER TABLET 40 MEQ PO (08:54)
[2022-09-12] MEDS: FUROSEMIDE 40 MG TABLET PO (08:54)
[2022-09-12] MEDS: levETIRAcetam 500 MG TABLET PO (08:55)
[2022-09-12] MEDS: RANOLAZINE 500 MG TAB.ER.12H PO (08:55)
[2022-09-12] MEDS: guaiFENesin 12 HR 600 MG TABCR PO (08:55)
[2022-09-12] MEDS: cilostazoL 50 MG TABLET PO (08:55)
[2022-09-12] MEDS: GABAPENTIN 100 MG CAPSULE PO (08:57)
--- NOTE | 2022-09-12 09:21 | P.CDI_ITS ---
CDI Query Clarification Request Documented history of CHF. CHF noted in the assessment and plan. Furosemide listed as a home medication. Patient receiving Furosemide. Chest Xray from 09/08/22 notes pulmonary edema. Please specify type and acuity of heart failure if known. * Acute * Chronic * Acute on Chronic * Unknown * Systolic * Diastolic * Combined Systolic and Diastolic * Unknown <Shayla Shah RN - Last Filed: 09/12/22 09:27> Clarified Diagnosis Clarified Diagnosis: Chronic diastolic CHF <Rupal Wellington PA-C - Last Filed: 09/12/22 10:43>
--- NOTE | 2022-09-12 10:43 | P.DS_ITS ---
DS: Admitting Diagnosis Discharge Date 09/12/2022 Admitting Diagnosis COPD exacerbation DS: Discharge Diagnosis Discharge Diagnosis (1) Acute exacerbation of chronic obstructive pulmonary disease: Code(s): J44.1 - Chronic obstructive pulmonary disease with (acute) exacerbation Status: Acute Assessment and Plan: * Likely exacerbated by not being on required home oxygen * Symptomatic improvement following bronchodilators and steroids * Continue p.o. prednisone 40 mg daily to complete a 5 day course * Received antibiotics as below * Patient with significant clinical improvement * Discharged back home with home oxygen, see below * Pulmonology referral as an outpatient * Continue home maintenance inhalers. Patient on Breztri (2) Acute and chronic respiratory failure with hypoxia: Code(s): J96.21 - Acute and chronic respiratory failure with hypoxia Status: Acute Assessment and Plan: * Patient typically on 3 L supplemental O2. * Stop using home oxygen after she moved to the area from [place] and could not bring her oxygen with her. Had been off oxygen for 1 month * Home O2 eval completed on 09/11/2022. Patient requires 3 L at rest and 4 L with activity * Home oxygen was arranged * Outpatient pulmonology follow-up as above (3) Multifocal pneumonia: Code(s): J18.9 - Pneumonia, unspecified organism Status: Acute Assessment and Plan: * Receive ceftriaxone azithromycin during admission * Will continue p.o. cefdinir and azithromycin as an outpatient to complete appropriate course * Legionella and pneumococcal and mycoplasma assays pending at time of discharge, will monitor * Supportive care provided (4) Heart failure of unknown type: Code(s): I50.9 - Heart failure, unspecified Status: Acute Assessment and Plan: * Chronic diastolic CHF * Echo completed on 09/09/2022 showed preserved EF, grade 2 diastolic dysfunction * Clinically compensated during admission * Continue home furosemide (5) Insulin dependent type 2 diabetes mellitus: Code(s): E11.9 - Type 2 diabetes mellitus without complications; Z79.4 - adjunct faculty for medical terminology (current) use of insulin Status: Acute Assessment and Plan: * A1c is 6.6 * Seems to be diet controlled -not on insulin or hypoglycemic agents * Blood sugars reasonably controlled while on steroids (6) Hypertension: Qualifiers: Hypertension type: unspecified Qualified Code(s): I10 - Essential (primary) hypertension Code(s): I10 - Essential (primary) hypertension Status: Acute Assessment and Plan: * Blood pressures remained stable * Continue home antihypertensives (7) Chronic anticoagulation: Code(s): 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 anticoagulants Status: Acute Assessment and Plan: * Continue low-dose rivaroxaban presumably for peripheral arterial disease (8) Metastatic adenocarcinoma to liver with unknown primary site: Code(s): C78.7 - Secondary malignant neoplasm of liver and intrahepatic bile duct; C80.1 - Malignant (primary) neoplasm, unspecified Status: Acute Assessment and Plan: * Will need outpatient follow-up * Bilateral breast masses noted on imaging are concerning for metastatic spread (9) Seizure disorder: Code(s): G40.909 - Epilepsy, unspecified, not intractable, without status epilepticus Status: Acute Assessment and Plan: * Continue home Keren DS: S
--- NOTE | 2022-09-12 10:43 | PM.DS ---
DS: Admitting Diagnosis Discharge Date 09/12/2022 Admitting Diagnosis COPD exacerbation DS: Discharge Diagnosis Discharge Diagnosis (1) Acute exacerbation of chronic obstructive pulmonary disease: Code(s): J44.1 - Chronic obstructive pulmonary disease with (acute) exacerbation Status: Acute Assessment and Plan: Likely exacerbated by not being on required home oxygen Symptomatic improvement following bronchodilators and steroids Continue p.o. prednisone 40 mg daily to complete a 5 day course Received antibiotics as below Patient with significant clinical improvement Discharged back home with home oxygen, see below Pulmonology referral as an outpatient Continue home maintenance inhalers. Patient on Breztri (2) Acute and chronic respiratory failure with hypoxia: Code(s): J96.21 - Acute and chronic respiratory failure with hypoxia Status: Acute Assessment and Plan: Patient typically on 3 L supplemental O2. Stop using home oxygen after she moved to the area from [place] and could not bring her oxygen with her. Had been off oxygen for 1 month Home O2 eval completed on 09/11/2022. Patient requires 3 L at rest and 4 L with activity Home oxygen was arranged Outpatient pulmonology follow-up as above (3) Multifocal pneumonia: Code(s): J18.9 - Pneumonia, unspecified organism Status: Acute Assessment and Plan: Receive ceftriaxone azithromycin during admission Will continue p.o. cefdinir and azithromycin as an outpatient to complete appropriate course Legionella and pneumococcal and mycoplasma assays pending at time of discharge, will monitor Supportive care provided (4) Heart failure of unknown type: Code(s): I50.9 - Heart failure, unspecified Status: Acute Assessment and Plan: Chronic diastolic CHF Echo completed on 09/09/2022 showed preserved EF, grade 2 diastolic dysfunction Clinically compensated during admission Continue home furosemide (5) Insulin dependent type 2 diabetes mellitus: Code(s): E11.9 - Type 2 diabetes mellitus without complications; Z79.4 - [facility] (current) use of insulin Status: Acute Assessment and Plan: A1c is 6.6 Seems to be diet controlled -not on insulin or hypoglycemic agents Blood sugars reasonably controlled while on steroids (6) Hypertension: Qualifiers: Hypertension type: unspecified Qualified Code(s): I10 - Essential (primary) hypertension Code(s): I10 - Essential (primary) hypertension Status: Acute Assessment and Plan: Blood pressures remained stable Continue home antihypertensives (7) Chronic anticoagulation: Code(s): Z79.01 - watermelon harvesting supervisor (current) use of anticoagulants Status: Acute Assessment and Plan: Continue low-dose rivaroxaban presumably for peripheral arterial disease (8) Metastatic adenocarcinoma to liver with unknown primary site: Code(s): C78.7 - Secondary malignant neoplasm of liver and intrahepatic bile duct; C80.1 - Malignant (primary) neoplasm, unspecified Status: Acute Assessment and Plan: Will need outpatient follow-up Bilateral breast masses noted on imaging are concerning for metastatic spread (9) Seizure disorder: Code(s): G40.909 - Epilepsy, unspecified, not intractable, without status epilepticus Status: Acute Assessment and Plan: Continue home Keren DS: Summary Hospital Course Hospital Course: Date of admission: 09/08/2022 Date of discharge: 09/12/2022 Moriah Lynn is a 67-year-old female with a history of COPD, chronic respiratory failure on 3 L supplemental O2 (has been off oxygen at home for approximately 1 month since moving from [place]), hypertension, type 2 diabetes mellitus, seizure disorder?who presented to the emergency department on 09/08/2022 with complaints of increased shortness of breath, [facility]
[2022-09-12 11:36] LABS: Glucose Point of Care 180 mg/dl (65-105)
[2022-09-14 00:57] LABS: Pneumococcal Antigen Urine Detected (Not Detected)
[2022-09-14 06:54] LABS: Legionella pneumophila Ag Ur Not Detected (Not Detected)
[2022-09-14 19:39] LABS: Mycoplasma IgM Antibody Titer 326 U/mL (<770)
== END 2022-09-12 12:45 | disposition home or self-care (01) | DRG 190 ==
LOC: ANHED 10:40 → ANH3MEDSUR 16:09 → ANHIMU 16:41 → ANH3MEDSUR 09-10 11:58
PROVIDERS: Internal Medicine; Physician Assistant; Admitting Provider Hospitalist; Emergency Provider Emergency Medicine; PCP Family Medicine; Visit Provider Physician Assistant
DX: J44.0 Chronic obstructive pulmonary disease with (acute) lower respiratory infection (principal); J18.9 Pneumonia, unspecified organism; J96.21 Acute and chronic respiratory failure with hypoxia; I50.32 Chronic diastolic (congestive) heart failure; C78.7 Secondary malignant neoplasm of liver and intrahepatic bile duct; Z91.198 Patient's noncompliance with other medical treatment and regimen for other reason; Z99.81 Dependence on supplemental oxygen; J44.1 Chronic obstructive pulmonary disease with (acute) exacerbation; I11.0 Hypertensive heart disease with heart failure; C80.1 Malignant (primary) neoplasm, unspecified; E11.42 Type 2 diabetes mellitus with diabetic polyneuropathy; G40.909 Epilepsy, unspecified, not intractable, without status epilepticus; E78.5 Hyperlipidemia, unspecified; F17.210 Nicotine dependence, cigarettes, uncomplicated; Z79.01 Long term (current) use of anticoagulants; Z79.4 Long term (current) use of insulin; Z86.718 Personal history of other venous thrombosis and embolism; Z90.49 Acquired absence of other specified parts of digestive tract
CPT/HCPCS: 36415; 36600; 71046; 71275; 80048; 80053; 80069; 80162; 81001; 82375; 82805; 82948; 83036; 83050; 85025; 85027; 86738; 87070; 87086; 87205; 87449; 87899; 93005; 93306; 94618; 94640; 96365; 96367; 96375; 97116; 97161; 97165; 99285; A9270; G0378; J0456; J0696; J1815; J2930; J7512; Q9967

== ENCOUNTER 2022-10-14 17:15 | Inpatient (IN) | payer MEDICARE, MEDICAID, SELFPAY ==
[2022-10-14] VITALS (10 sets, daily range): BP systolic 101–133; BP diastolic 45–84; PULSE 93–115; RESP 15–30; TEMP 36.3–36.9; O2SAT 82–96; BMI 21.9
--- NOTE | ~2022-10-14 | CT_ITS ---
EXAMINATION: CTA chest PE protocol DATE: 10/14/2022 18:49 INDICATION: Hypoxia. Right leg swelling. TECHNIQUE: Computed tomography angiography (CTA) of the chest was performed with 100 mL Omnipaque-350 intravenous contrast timed to evaluate the pulmonary arteries. Coronal maximum intensity projection 3D-reconstructions were created by the technologist. Automated exposure control and iterative reconst ruction technique were employed. The dose-length product was 219.06 mGy-cm. COMPARISON: Chest CT 09/08/2022 FINDINGS: There is severe emphysema. There are airspace opacities and nodules in the lingula and airs pace opacities in the left lower lobe, consistent with pneumonia. There is mild atelectasis in right middle lobe and right lower lobe. There is mucous plugging in the lower lobes and no pleural effusion . There is a right internal jugular port with tip in right atrium. The heart size is normal. No peric ardial effusion. There is no pulmonary embolus. Again seen are 3 subcutaneous masses in anterior ches t wall measuring up to 13 mm. There are changes of cholecystectomy. Partially visualized is a 2.3 cm hypodense mass in right hepatic lobe. There are changes of cholecystectomy. There is a 2.4 cm mass in left adrenal gland measuring soft tissue attenuation. Calcifications in the spleen are consistent wi th old granulomatous disease. There are sclerotic lesions involving the manubrium of the sternum and C7, T8, and T10 vertebral bodies consistent with metastatic disease. IMPRESSION: 1. Airspace opacities and nodules in the lingula and airspace opacities in the left lower lobe, consi stent with pneumonia. 2. Severe emphysema. 3. Mucous plugging in the lower lobes. 4. Bone lesions, consistent metastatic disease. 5. Anterior chest wall masses, which may be benign or malignant. 6. Liver mass, which may be benign or malignant. 7. Left adrenal mass, which may be an adenoma or metastatic disease. 8. No pulmonary embolus. Reviewed, dictated and finalized at location E. IMPRESSION: 1. Airspace opacities and nodules in the lingula and airspace opacities in the left lower lobe, consistent with pneumonia. 2. Severe emphysema. 3. Mucous plugging in the lower lobes. 4. Bone lesions, consistent metastatic disease. 5. Anterior chest wall masses, which may be benign or malignant. 6. Liver mass, which may be benign or malignant. 7. Left adrenal mass, which may be an adenoma or metastatic disease. 8. No pulmonary embolus.
--- NOTE | ~2022-10-14 | CT_ITS ---
EXAMINATION: CT brain wo con DATE: 10/14/2022 18:47 INDICATION: Altered mental status. TECHNIQUE: Computed tomography (CT) of the head was performed without intravenous contrast. The mA wa s adjusted according to patient size. Iterative reconstruction technique was employed. The dose-lengt h product was 908.00 mGy-cm. COMPARISON: None FINDINGS: There is a 7 mm hyperdense mass in the anterior third ventricle, consistent with a colloid cyst. There are scattered areas of low attenuation in the cerebral white matter, which is within norm al limits for the patient's age. There is no intracranial hemorrhage or acute ischemic infarct. The ventricles are normal in size. There is mild mucosal thickening in the paranasal sinuses. The mastoid air cells are normal. The orbits are normal. IMPRESSION: 1. 7 mm colloid cyst in the anterior third ventricle. Reviewed, dictated and finalized at location E.
--- NOTE | ~2022-10-14 | CT_ITS ---
Non-contrast Head CT History: Status post fall COMPARISON: 10/14/2022 Technique: Axial non-contrast imaging of the brain was performed. Dose reduction technique was used on this scan by utilizing automated exposure control and iterative reconstruction technique. The dose -length product (DLP) was 605.33 mGy-cm. Findings: 6 mm hyperdense colloid cyst is again noted at the roof of the third ventricle adjacent to the foramina of [place]. No acute infarct or intracranial hemorrhage evident. Brain parenchyma appears normal. The ventricles and subarachnoid spaces are normal in size. The calvarium appears normal. The visualized paranasal sinuses and mastoid air cells are clear. Impression: Stable 6 mm hyperdense colloid cyst at the roof of the third ventricle. No hydrocephalus. Reviewed, dictated and finalized at [facility]. Impression: Stable 6 mm hyperdense colloid cyst at the roof of the third ventricle. No hydr ocephalus.
--- NOTE | ~2022-10-14 | US_ITS ---
US venous doppler LE RT DATE: 10/15/2022 08:54 INDICATION: Erythema and edema of the right lower extremity TECHNIQUE: Real-time and color flow imaging and Doppler analysis of the veins of the right lower extr emity COMPARISON: None FINDINGS: There is thrombus within an incomplete compression of the right greater saphenous vein, rig ht common femoral and femoral veins. Spontaneous and phasic flow, normal augmentation and color flow signal and normal compression of the popliteal and posterior tibial and peroneal veins is demonstrated. IMPRESSION: Thrombosis within the left greater saphenous vein Deep venous thrombosis of left common femoral and superficial femoral veins Reviewed, dictated and finalized at Location [facility]. Reviewed, dictated and finalized at location A.
--- NOTE | ~2022-10-14 | XR_ITS ---
EXAMINATION: XR chest 1V portable DATE: 10/14/2022 18:01 INDICATION: Altered mental status. Hypoxia. TECHNIQUE: A single frontal view of the chest was obtained. COMPARISON: Chest 2 views 09/08/2022, chest CT 09/08/2022 FINDINGS: The lungs demonstrate lucencies and interstitial opacities, consistent with emphysema. Ther e are airspace opacities in the lower lung zones. No pleural effusion or pneumothorax. The heart size is normal. Calcified mediastinal lymph nodes are consistent with old granulomatous disease. There is a left internal jugular port with tip in right atrium. IMPRESSION: 1. Airspace opacities in the lower lung zones, consistent with atelectasis versus pneumonia. 2. Emphysema. Reviewed, dictated and finalized at location E. IMPRESSION: 1. Airspace opacities in the lower lung zones, consistent with atelectasis vers us pneumonia. 2. Emphysema.
--- NOTE | 2022-10-14 17:23 | ECG_ITS ---
Measurements Intervals [place] Rate: 104 P: 43 [place]: 188 QRS: 10 QRSD: 89 T: 103 QT: 286 QTc: 377 Interpretive Statements SINUS TACHYCARDIA ATRIAL PREMATURE COMPLEXES POSSIBLE LEFT ATRIAL ENLARGEMENT NONSPECIFIC ST & T-WAVE ABNORMALITY- DIFFUSE LEADS BASELINE ARTIFACT- AVR, AVL, AVF, V4-V6 BORDERLINE ECG COMPARED TO ECG 09/08/2022 10:29:04 SINUS TACHYCARDIA NOW PRESENT Electronically Signed On 10-15-2022 7:59:25 CDT by Olivier Beltrán D.O.
[2022-10-14 17:52] LABS: Basophils Percent Auto 0.3 % (0.2-1.2); Eosinophils Absolute Auto 0.1 K/mm3 (0-0.3); Eosinophils Percent Auto 0.7 % (0-4.4); Hematocrit 33.9 % (37.0-47.0); Hemoglobin 10.7 g/dL (12.0-15.0); Immature Granulocyte Absolute 0.09 K/mm3 (0.00-0.031); Immature Granulocyte Percent A 0.8 % (0-0.5); Lymphocytes Absolute Auto 1.01 K/mm3 (0.9-3.2); Lymphocytes Percent Auto 9.2 % (18.3-44.2); Mean Corpuscular HGB Conc 31.6 g/dl (32-36); Mean Corpuscular Hemoglobin 27.5 pg (26-34); Mean Corpuscular Volume 87.1 fl (80-100); Mean Platelet Volume 9.1 fl (7.4-10.4); Monocytes Absolute Auto 0.6 K/mm3 (0.1-0.6); Neutrophils Absolute Auto 9.2 K/mm3 (1.3-6.7); Platelet Count Result 259 k/mm3 (150-375); Red Blood Count 3.89 M/mm3 (4.2-5.4); Red Cell Distribution Width 14.2 % (11.5-14.5); White Blood Count 10.9 K/mm3 (4.5-10.0)
[2022-10-14 17:56] LABS: Alveolar/Arterial O2 Gradient 85.9 mmHg; Base Excess ABG 11.1 mEq/l (+/-2.0); Carboxyhemoglobin 1.8 % THb (0-2.0); Fractional Inspired Oxygen 30 %; HCO3 ABG 37.1 mEq/l (22.0-26.0); Methemoglobin ABG 0.3 %THb (0-1.5); Oxygen Content ABG 13.8 %vol (16.0-22.0); Oxygen Saturation ABG 91.7 % (95.0-100.0); Oxyhemoglobin 88.1 % THb (90.0-100.0); PCO2 ABG 56.7 mmHg (35.0-45.0); PO2 ABG 61.4 mmHg (80.0-100.0); PO2 FiO2 Ratio Arterial Blood 2.05 %; Reduced Hemoglobin 9.8 %THb (0-5.0); Total Hemoglobin 11.1 g/dL (12.0-18.0); pH ABG 7.434 (7.350-7.450)
[2022-10-14 17:57] LABS: Device NASAL CANNULA; Liters per Minute 2.5 LPM; Modified Allen's Test Pass; Site Drawn RIGHT RADIAL
[2022-10-14] MEDS: ALBUTEROL SULFATE NEB 2.5 MG/3 ML INH INHALATION (18:00)
[2022-10-14] MEDS: IPRATROPIUM BR 0.02% INH SOLN 0.5 MG/2.5 ML VIAL INHALATION (18:00)
--- NOTE | 2022-10-14 18:03 | ED.AMS ---
HPI - Altered Mental Status General Chief Complaint: Altered Mental Status <Amelie Henriquez PA-C - Last Filed: 10/14/22 21:09> Stated Complaint: AMS <Amelie Henriquez PA-C - Last Filed: 10/14/22 21:09> Time Seen by Provider: 10/14/22 17:26 <Amelie Henriquez PA-C - Last Filed: 10/14/22 21:09> Source: patient, EMS, RN notes reviewed and old records reviewed <Amelie Henriquez PA-C - Last Filed: 10/14/22 21:09> Mode of arrival: EMS <NICKOLAS Hankins Last Filed: 10/14/22 21:09> Limitations: other (poor historian) <Amelie Henriquez PA-C - Last Filed: 10/14/22 21:09> History of Present Illness HPI narrative: This is a 67-year-old female that presents to the emergency department for altered mental status. Nursing facility at [facility] felt as though she seemed confused today. They were also having trouble getting her oxygen saturation above 90%. She has history of chronic respiratory failure due to COPD, and is supposed to be on oxygen at all times. Reportedly patient is not compliant with oxygen. Patient is noted to have swelling in her right leg. She does report this has been ongoing over the last couple of weeks. She is unsure if she has a blood clot. Denies fever, cough, chest pain, or shortness of breath. <Amelie Henriquez PA-C - Last Filed: 10/14/22 21:09> Related Data Home Medications: Home Medications Medication Instructions Recorded Confirmed cilostazol 50 mg tablet 50 mg PO BID 09/08/22 10/14/22 cyclobenzaprine 5 mg tablet 5 mg PO BID 09/08/22 10/14/22 digoxin 125 mcg (0.125 mg) tablet 125 mcg PO DAILY 09/08/22 10/14/22 everolimus (antineoplastic) 7.5 mg 7.5 mg PO DAILY 09/08/22 10/14/22 tablet furosemide 40 mg tablet 40 mg PO DAILY 09/08/22 10/14/22 gabapentin 100 mg capsule 200 mg PO BID 09/08/22 10/14/22 isosorbide mononitrate 30 mg 30 mg PO BID 09/08/22 10/14/22 tablet,extended release 24 hr levetiracetam 500 mg tablet 500 mg PO BID 09/08/22 10/14/22 (Keppra) loperamide 2 mg tablet 2 mg PO Q6H PRN Diarrhea 09/08/22 10/14/22 morphine 60 mg tablet,extended 60 mg PO Q12H 09/08/22 10/14/22 release omeprazole 40 mg capsule,delayed 40 mg PO DAILY 09/08/22 10/14/22 release prochlorperazine maleate 10 mg 10 mg PO Q6H PRN NAUSEA 09/08/22 10/14/22 tablet ranolazine 500 mg tablet,extended 500 mg PO BID 09/08/22 10/14/22 release,12 hr rivaroxaban 2.5 mg tablet (Xarelto) 2.5 mg PO BID 09/08/22 10/14/22 rosuvastatin 10 mg tablet 10 mg PO HS 09/08/22 10/14/22 tizanidine 2 mg tablet 2 mg PO Q6H PRN Muscle Spasm 09/08/22 10/14/22 fluticasone fur. 100 mcg-umeclid 1 inh inhalation DAILY 10/14/22 10/14/22 62.5 mcg-vilant 25 mcg inhalat.powder (Trelegy Ellipta) insulin glargine 100 unit/mL 15 unit subcut HS 10/14/22 10/14/22 subcutaneous solution (Lantus U-100 Insulin) ipratropium 18 mcg-albuterol 103 2 spray inhalation Q12H 10/14/22 10/14/22 mcg/actuation aerosol inhaler magnesium citrate (Citrate of 300 ml PO DAILY PRN CONSTIPATION 10/14/22 10/14/22 Magnesia oral) <Amelie Henriquez PA-C - Last Filed: 10/14/22 21:09> Allergies/Adverse Reactions: Allergies Allergy/AdvReac Type Severity Reaction Status Date / Time No Known Allergies Allergy Verified 09/28/22 09:14 <Amelie Henriquez PA-C - Last Filed: 10/14/22 21:09> Review of Systems Review of Systems: CONSTITUTIONAL: Denies fever CARDIOVASCULAR: Reports edema. Denies chest pain RESPIRATORY: Denies cough or dyspnea. GASTROINTESTINAL: Denies abdominal pain, nausea, vomiting <Amelie Henriquez PA-C - Last Filed: 10/14/22 21:09> All systems reviewed & are unremarkable except as noted in HPI and below <Amelie Henriquez PA-C - Last Filed: 10/14/22 21:09> [facility] Past Medical History Medical History: Medical History Chronic anticoagulation Chronic obstructive pulmonary disease Chronic respiratory failure w
[2022-10-14 18:05] LABS: INR 1.4; Prothrombin Time 17.9 Seconds (11.1-14.7)
[2022-10-14 18:06] LABS: Partial Thromboplastin Time 47.2 SECONDS (22.3-36.8)
[2022-10-14 18:09] LABS: D Dimer 2.76 ug/mL (<0.48)
[2022-10-14 18:15] LABS: NT Pro B Type Natriuretic Pept 785 pg/mL (19.9-100)
[2022-10-14 18:19] LABS: Alanine Aminotransferase 19 U/L (6-35); Albumin Level 3.1 g/dL (3.5-5.1); Alkaline Phosphatase 192 U/L (38-126); Aspartate Amino Transferase 35 U/L (14-36); Bilirubin,Total 0.7 mg/dL (0.2-1.3); Blood Urea Nitrogen 28 mg/dL (7-17); Calcium 8.8 mg/dL (8.4-10.2); Carbon Dioxide > 40 mmol/L (22-30); Chloride 91 mmol/L (98-107); Estimated CRCL calculation 33 ml/min; Estimated Glomerular Filt Rate 45; Glucose 95 mg/dL (65-110); Potassium 3.5 mmol/L (3.4-5.0); Sodium 137 mmol/L (137-145)
[2022-10-14 18:28] LABS: Influenza A QL RT-PCR Negative (Negative); Influenza B QL RT-PCR Negative (Negative); SARS-CoV-2 RNA PCR Negative (Negative)
[2022-10-14] MEDS: methylPREDNISolone SOD SUCC 125 MG VIAL IV PUSH (18:30)
[2022-10-14] MEDS: SODIUM CHLORIDE 0.9% IV 500 ML 999 ML IV CONT (18:53)
--- NOTE | 2022-10-14 19:06 | PC.NURSE ---
EDP at bedside aware of oxygen saturation
[2022-10-14] MEDS: AZITHROMYCIN 500 MG/NS 250 ML 500 MG/250 ML BAG 250 MG IVPB (19:51)
--- NOTE | 2022-10-14 20:40 | ADMGEN ---
This patient, Moriah Lynn, was admitted to 2 Medical Room 251-01. Patient/family oriented to hospital policies and general routines including ID bracelet, bed and alarms, visiting hours, pain management, procedures, bathroom and other care routines, personal items, smoking policy, room service/diet, and visiting hours. Information on how to activate the Rapid Response Team has been discussed. Patient/Family are encouraged to report perceived risks to care and to ask questions if they do not understand what they are told or what they should do.
[2022-10-15] VITALS (18 sets, daily range): BP systolic 112–146; BP diastolic 32–47; PULSE 86–102; RESP 15–20; TEMP 36.1–36.4; O2SAT 92–98
[2022-10-15 00:26] LABS: Appearance Urine Clear (Clear); Bacteria Urine 2+ /hpf; Bilirubin Urine Negative (Negative); Blood Urine Negative (Negative); Color Urine Dark Yellow (Yellow); Glucose Urine UA Negative (Negative); Ketones Urine Negative (Negative); Leukocyte Esterase Ur Trace LEU/UL (Negative); Need Manual Microscopic Reviewed; Nitrate Urine Negative (Negative); Protein Urine 2+ mg/dL (Negative); RBC Urine 0-2 /hpf (0-2); Squamous Epithelial Cell Urine Moderate /hpf (Few); WBC Urine 0-5 /hpf
[2022-10-15 00:28] LABS: Add Urine Microscopic? YES
--- NOTE | 2022-10-15 00:58 | PM.IMHP ---
H&P: HPI History of Present Illness Date/Time: 10/15/22 00:58 Chief Complaint: SOB Narrative: This is a 67-year-old female with past medical history significant for chronic respiratory failure on chronic supplemental oxygen, COPD/emphysema, metastatic cancer unknown primary. [facility] was brought today due to concerns for low pulse oximetry and shortness of breath and altered mental status. Patient is unable to give any meaningful history. preliminary workup was significant for lung infiltrates. Patient is been admitted for further evaluation management and treatment. EXAMINATION: CTA chest PE protocol DATE: 10/14/2022 18:49 INDICATION: Hypoxia. Right leg swelling. TECHNIQUE: Computed tomography angiography (CTA) of the chest was performed with 100 mL Omnipaque-350 intravenous contrast timed to evaluate the pulmonary arteries. Coronal maximum intensity projection 3D-reconstructions were created by the technologist. Automated exposure control and iterative reconstruction technique were employed. The dose-length product was 219.06 mGy-cm. COMPARISON: Chest CT 09/08/2022 FINDINGS: There is severe emphysema. There are airspace opacities and nodules in the lingula and airspace opacities in the left lower lobe, consistent with pneumonia. There is mild atelectasis in right middle lobe and right lower lobe. There is mucous plugging in the lower lobes and no pleural effusion. There is a right internal jugular port with tip in right atrium. The heart size is normal. No pericardial effusion. There is no pulmonary embolus. Again seen are 3 subcutaneous masses in anterior chest wall measuring up to 13 mm. There are changes of cholecystectomy. Partially visualized is a 2.3 cm hypodense mass in right hepatic lobe. There are changes of cholecystectomy. There is a 2.4 cm mass in left adrenal gland measuring soft tissue attenuation. Calcifications in the spleen are consistent with old granulomatous disease. There are sclerotic lesions involving the manubrium of the sternum and C7, T8, and T10 vertebral bodies consistent with metastatic disease. IMPRESSION: 1. Airspace opacities and nodules in the lingula and airspace opacities in the left lower lobe, consistent with pneumonia. 2. Severe emphysema. 3. Mucous plugging in the lower lobes. 4. Bone lesions, consistent metastatic disease. 5. Anterior chest wall masses, which may be benign or malignant. 6. Liver mass, which may be benign or malignant. 7. Left adrenal mass, which may be an adenoma or metastatic disease. 8. No pulmonary embolus. EXAMINATION: XR chest 1V portable DATE: 10/14/2022 18:01 INDICATION: Altered mental status. Hypoxia. TECHNIQUE: A single frontal view of the chest was obtained. COMPARISON: Chest 2 views 09/08/2022, chest CT 09/08/2022 FINDINGS: The lungs demonstrate lucencies and interstitial opacities, consistent with emphysema. There are airspace opacities in the lower lung zones. No pleural effusion or pneumothorax. The heart size is normal. Calcified mediastinal lymph nodes are consistent with old granulomatous disease. There is a left internal jugular port with tip in right atrium. IMPRESSION: 1. Airspace opacities in the lower lung zones, consistent with atelectasis versus pneumonia. 2. Emphysema. EXAMINATION: CT brain wo con DATE: 10/14/2022 18:47 INDICATION: Altered mental status. TECHNIQUE: Computed tomography (CT) of the head was performed without intravenous contrast. The mA was adjusted according to patient size. Iterative reconstruction technique was employed. The dose-length product was 908.00 mGy-cm. COMPARISON: None FINDINGS: There is a 7 mm hyperdense mass in the anterior third ventricle, consistent with a colloid cyst. There are scattered areas of low attenuation in the cerebral white matter, which is within normal limits for the patient's age.? There is no intracranial hemorrhage or acute ischemic infarct. The ventricle
[2022-10-15] MEDS: FLUTICASONE/UMECLIDIN/VILANTER 100-62.5-25 MCG ELLIPTA 1 PUFF INHALATION (07:05)
[2022-10-15] MEDS: ACETYLCYSTEINE 20% INHAL SOLN 800 MG/4 ML VIAL 200 MG INHALATION ×2 (07:06→21:04)
[2022-10-15] MEDS: ALBUTEROL SULFATE NEB 2.5 MG/3 ML INH INHALATION ×3 (07:06→21:04)
[2022-10-15] MEDS: IPRATROPIUM BR 0.02% INH SOLN 0.5 MG/2.5 ML VIAL INHALATION ×3 (07:06→21:04)
[2022-10-15] MEDS: cilostazoL 50 MG TABLET PO ×2 (07:28→16:30)
--- NOTE | 2022-10-15 07:34 | PM.IMPN ---
Progress Note: A&P Assessment and Plan (1) Acute on chronic respiratory failure: Qualifiers: Respiratory failure complication: hypoxia and hypercapnia Qualified Code(s): J96.21 - Acute and chronic respiratory failure with hypoxia; J96.22 - Acute and chronic respiratory failure with hypercapnia Code(s): J96.20 - Acute and chronic respiratory failure, unspecified whether with hypoxia or hypercapnia Status: Acute Assessment and Plan: admit to regular medical floor continue supplemental oxygen breathing treatments no steroids necessary at this time as patient denies symptoms of COPD exacerbation (2) Pneumonia: Qualifiers: Laterality: left Lung location: lower lobe of lung Pneumonia type: due to unspecified organism Qualified Code(s): J18.9 - Pneumonia, unspecified organism Code(s): J18.9 - Pneumonia, unspecified organism Status: Acute Assessment and Plan: -Given recent hospital admission for pneumonia in August, will cover with levaquin, cefe, and vanco renally dosed for HEATHER -NS @ 75 ml per hr -Mucous plugging in lower lobes. Added mucinex BID. -supplemental oxygen -breathing treatments ordered -cultures in progress (3) Insulin dependent type 2 diabetes mellitus: Code(s): E11.9 - Type 2 diabetes mellitus without complications; Z79.4 - local company intermodal truck driver (current) use of insulin Status: Acute Assessment and Plan: continue to monitor insulin sliding scale as needed Lantus 15 units at HS ac/hs accu checks dm diet check A1c in the am (4) Chronic anticoagulation: Code(s): Z79.01 - residential (current) use of anticoagulants Status: Acute Assessment and Plan: see DVT (5) Acute exacerbation of chronic obstructive pulmonary disease: Code(s): J44.1 - Chronic obstructive pulmonary disease with (acute) exacerbation Status: Acute Assessment and Plan: breathing treatments q.6 hours ABG with compensated respiratory acidosis (6) Metastatic adenocarcinoma to liver with unknown primary site: Code(s): C78.7 - Secondary malignant neoplasm of liver and intrahepatic bile duct; C80.1 - Malignant (primary) neoplasm, unspecified Status: Acute Assessment and Plan: consider hospice (7) Dvt femoral (deep venous thrombosis): Code(s): I82.419 - Acute embolism and thrombosis of unspecified femoral vein Status: Acute Assessment and Plan: -US shows thrombosis within the left greater saphenous vein, DVT of left common femoral, and superficial femoral veins. -Likely provoked from malignancy -D dimer elevated but CTA was negative for PE. -Started on weight based Lovenox BID -Hold Xarelto for now. Can transition to DVT dosing as outpatient Subjective Date/time seen: 10/15/22 07:34 Interval history: HPI is taken from the chart ?This is a 67-year-old female with past medical history significant for chronic respiratory failure on chronic supplemental oxygen, COPD/emphysema, metastatic cancer unknown primary. patient is a resident at [facility] term she was brought today due to concerns for low pulse oximetry and shortness of breath and altered mental status.? Patient is? unable to give any meaningful history. preliminary workup was significant for lung infiltrates.? Patient is been admitted for further evaluation management and treatment. Interval history: 10/15: Patient seen this morning resting in bed, no acute distress. There were no acute events reported overnight. Patient says that she came from her long term and she can not remember why she came but she thinks it was because the staff that she was acting funny. She is alert and oriented to person, place, time. She denies headache, dizziness, shortness of breath, increased sputum production, worsening cough, chest pain, nausea/vomiting/diarrhea. On exam she does have unilateral +2 edema and erythema to the right leg. Review of Syste
[2022-10-15 07:55] LABS: Glucose Point of Care 195 mg/dl (65-105)
[2022-10-15] MEDS: MORPHINE SULFATE (*CRX) 60 MG TABCR PO ×2 (08:12→20:36)
[2022-10-15] MEDS: CYCLOBENZAPRINE HCL 5 MG TABLET PO ×2 (08:12→16:30)
[2022-10-15] MEDS: DIGOXIN TAB 125 MCG TABLET PO (08:12)
[2022-10-15] MEDS: GABAPENTIN 100 MG CAPSULE 200 MG PO ×2 (08:12→16:30)
[2022-10-15] MEDS: PANTOPRAZOLE 40 MG TABLET PO ×2 (08:13→16:30)
[2022-10-15] MEDS: levETIRAcetam 500 MG TABLET PO ×2 (08:13→21:28)
[2022-10-15] MEDS: guaiFENesin 12 HR 600 MG TABCR PO ×2 (08:13→20:51)
[2022-10-15] MEDS: ISOSORBIDE MONONITRATE 30 MG TAB.ER.24H PO ×2 (08:14→20:35)
[2022-10-15] MEDS: RIVAROXABAN 2.5 MG TABLET PO (08:14)
[2022-10-15] MEDS: RANOLAZINE 500 MG TAB.ER.12H PO ×2 (08:15→20:35)
[2022-10-15] MEDS: CEFEPIME 2 GM/NS 50 ML 2 GM/50 ML BAG IVPB ×2 (09:19→20:51)
[2022-10-15] MEDS: levoFLOXacin 750 MG/D5W 150 ML 750 MG/150 ML BAG 100 MG IVPB (09:51)
[2022-10-15 11:50] LABS: Glucose Point of Care 305 mg/dl (65-105)
[2022-10-15 14:33] LABS: Basophils Percent Auto 0.2 % (0.2-1.2); Hematocrit 30.8 % (37.0-47.0); Hemoglobin 9.5 g/dL (12.0-15.0); Immature Granulocyte Absolute 0.21 K/mm3 (0.00-0.031); Immature Granulocyte Percent A 1.9 % (0-0.5); Lymphocytes Absolute Auto 0.65 K/mm3 (0.9-3.2); Lymphocytes Percent Auto 5.9 % (18.3-44.2); Mean Corpuscular HGB Conc 30.8 g/dl (32-36); Mean Corpuscular Hemoglobin 26.8 pg (26-34); Mean Platelet Volume 9.5 fl (7.4-10.4); Monocytes Absolute Auto 0.3 K/mm3 (0.1-0.6); Monocytes Percent Auto 2.9 % (2.6-8.5); Neutrophils Absolute Auto 9.8 K/mm3 (1.3-6.7); Neutrophils Percent Auto 89.1 % (45.5-73.1); Platelet Count Result 297 k/mm3 (150-375); Red Blood Count 3.54 M/mm3 (4.2-5.4); Red Cell Distribution Width 13.8 % (11.5-14.5)
[2022-10-15 14:48] LABS: Anion Gap 9 mmol/L (8-16); Blood Urea Nitrogen 38 mg/dL (7-17); Carbon Dioxide 34 mmol/L (22-30); Chloride 88 mmol/L (98-107); Estimated CRCL calculation 27 ml/min; Estimated Glomerular Filt Rate 35; Glucose 314 mg/dL (65-110); Potassium 3.7 mmol/L (3.4-5.0); Sodium 131 mmol/L (137-145)
[2022-10-15] MEDS: SODIUM CHLORIDE 0.9% IV 1,000 ML 75 ML IV CONT (14:54)
[2022-10-15] MEDS: ENOXAPARIN 60 MG/0.6 ML SYRINGE 56 MG SUB-Q (14:54)
[2022-10-15] MEDS: APIXABAN 5 MG TABLET 10 MG PO ×2 (15:11→20:35)
[2022-10-15 17:03] LABS: Glucose Point of Care 217 mg/dl (65-105)
[2022-10-15] MEDS: INSULIN ASPART (*BKC) 100 UNITS/ML SUB-Q (17:03)
[2022-10-15 20:09] LABS: Glucose Point of Care 155 mg/dl (65-105)
[2022-10-15] MEDS: INSULIN GLARGINE (*BKC) 100 UNITS/ML 15 UNITS SUB-Q (20:52)
[2022-10-16] VITALS (22 sets, daily range): BP systolic 123–128; BP diastolic 53–89; PULSE 73–115; RESP 16–20; TEMP 36.2–36.8; O2SAT 94–97
[2022-10-16 01:54] LABS: Creatinine Urine 67.2 mg/dL
[2022-10-16 02:01] LABS: Sodium Urine Random < 5 meq/L
[2022-10-16] MEDS: IPRATROPIUM BR 0.02% INH SOLN 0.5 MG/2.5 ML VIAL INHALATION ×4 (03:26→19:47)
[2022-10-16] MEDS: ALBUTEROL SULFATE NEB 2.5 MG/3 ML INH INHALATION ×4 (03:27→19:47)
[2022-10-16] MEDS: SODIUM CHLORIDE 0.9% IV 1,000 ML 75 ML IV CONT ×2 (04:42→17:49)
[2022-10-16 05:48] LABS: Basophils Percent Auto 0.2 % (0.2-1.2); Eosinophils Percent Auto 0.2 % (0-4.4); Hematocrit 29.9 % (37.0-47.0); Hemoglobin 9.2 g/dL (12.0-15.0); Immature Granulocyte Percent A 0.9 % (0-0.5); Lymphocytes Absolute Auto 1.17 K/mm3 (0.9-3.2); Mean Corpuscular HGB Conc 30.8 g/dl (32-36); Mean Corpuscular Hemoglobin 26.9 pg (26-34); Mean Corpuscular Volume 87.4 fl (80-100); Monocytes Absolute Auto 0.6 K/mm3 (0.1-0.6); Monocytes Percent Auto 5.8 % (2.6-8.5); Neutrophils Absolute Auto 8.7 K/mm3 (1.3-6.7); Neutrophils Percent Auto 81.9 % (45.5-73.1); Platelet Count Result 309 k/mm3 (150-375); Red Blood Count 3.42 M/mm3 (4.2-5.4); Red Cell Distribution Width 14.1 % (11.5-14.5); White Blood Count 10.6 K/mm3 (4.5-10.0)
[2022-10-16 05:59] LABS: Hemoglobin A1C 7.4 % (<5.7); INR 1.6; Prothrombin Time 19.6 Seconds (11.1-14.7)
[2022-10-16 06:00] LABS: Partial Thromboplastin Time 41.5 SECONDS (22.3-36.8)
[2022-10-16 06:08] LABS: Alanine Aminotransferase 17 U/L (6-35); Alkaline Phosphatase 151 U/L (38-126); Anion Gap 4 mmol/L (8-16); Aspartate Amino Transferase 23 U/L (14-36); Bilirubin,Total 0.5 mg/dL (0.2-1.3); Blood Urea Nitrogen 41 mg/dL (7-17); Calcium 7.9 mg/dL (8.4-10.2); Carbon Dioxide 35 mmol/L (22-30); Chloride 92 mmol/L (98-107); Estimated CRCL calculation 29 ml/min; Estimated Glomerular Filt Rate 37; Glucose 143 mg/dL (65-110); Magnesium 1.9 mg/dL (1.6-2.3); Phosphorus 4.5 mg/dL (2.5-4.5); Potassium 3.3 mmol/L (3.4-5.0); Sodium 131 mmol/L (137-145); Uric Acid 9.6 mg/dL (2.5-7.5)
--- NOTE | 2022-10-16 07:36 | PM.IMPN ---
Progress Note: A&P Assessment and Plan (1) Acute on chronic respiratory failure: Qualifiers: Respiratory failure complication: hypoxia and hypercapnia Qualified Code(s): J96.21 - Acute and chronic respiratory failure with hypoxia; J96.22 - Acute and chronic respiratory failure with hypercapnia Code(s): J96.20 - Acute and chronic respiratory failure, unspecified whether with hypoxia or hypercapnia Status: Acute Assessment and Plan: admit to regular medical floor continue supplemental oxygen. Home o2 is 3 L NC which is what she is on now. breathing treatments no steroids necessary at this time as patient denies symptoms of COPD exacerbation (2) Pneumonia: Qualifiers: Laterality: left Lung location: lower lobe of lung Pneumonia type: due to unspecified organism Qualified Code(s): J18.9 - Pneumonia, unspecified organism Code(s): J18.9 - Pneumonia, unspecified organism Status: Acute Assessment and Plan: -Given recent hospital admission for pneumonia in August, will cover with levaquin, cefe, and vanco renally dosed for HEATHER -NS @ increased to 100 ml per hour -Mucous plugging in lower lobes. Added mucinex BID. -supplemental oxygen -breathing treatments ordered -cultures in progress with NGTD (3) Insulin dependent type 2 diabetes mellitus: Code(s): E11.9 - Type 2 diabetes mellitus without complications; Z79.4 - long-term (current) use of insulin Status: Acute Assessment and Plan: continue to monitor insulin sliding scale as needed Lantus 15 units at HS ac/hs accu checks dm diet check A1c in the am.( 7.4 ) (4) Chronic anticoagulation: Code(s): Z79.01 - rodent exterminator (current) use of anticoagulants Status: Acute Assessment and Plan: see DVT (5) Acute exacerbation of chronic obstructive pulmonary disease: Code(s): J44.1 - Chronic obstructive pulmonary disease with (acute) exacerbation Status: Acute Assessment and Plan: breathing treatments q.6 hours ABG with compensated respiratory acidosis (6) Metastatic adenocarcinoma to liver with unknown primary site: Code(s): C78.7 - Secondary malignant neoplasm of liver and intrahepatic bile duct; C80.1 - Malignant (primary) neoplasm, unspecified Status: Acute Assessment and Plan: currently receiving treatment with chemotherapy and radiation consider hospice (7) Dvt femoral (deep venous thrombosis): Code(s): I82.419 - Acute embolism and thrombosis of unspecified femoral vein Status: Acute Assessment and Plan: -US shows thrombosis within the left greater saphenous vein, DVT of left common femoral, and superficial femoral veins. -Likely provoked from malignancy -D dimer elevated but CTA was negative for PE. -Xarelto was inappropriately dosed as an outpatient as Xarelto 2.5 mg PO BID. Stop Xarelto here and started on treatment dose with Eliquis 10 mg twice daily for 7 days followed by 5 mg twice daily. (8) HEATHER (acute kidney injury): Code(s): N17.9 - Acute kidney failure, unspecified Status: Acute Assessment and Plan: -Cr on admission 1.2-->1.5--->today 1.4 -was started on IVF and then dose increased with bump in Cr. -Low likely of tumor lysis syndrome as K+ and Phos are normal but I checked a uric acid anyway which was slightly elevated at 9.4. She does have an anemia with hgb 9.2 with a baseline 13-14gm/dL from August labs. So is this rise from a hemolytic component versus malignancy? I spoke with Dr Ortiz with Heme/Onc who said it would be appropriate to start her on allopurinol. -Renally dose allopurinol 50 mg PO daily. -FENa is 0.08%, pre-renal HEATHER (9) Anemia: Code(s): D64.9 - Anemia, unspecified Status: Acute Assessment and Plan: New onset anemia. Hgb on admission was 10.7 but baseline labs from August show Hgb 14.7 -daily labs -anemia panel ordered including Iron, TIBC, folate,
[2022-10-16 08:21] LABS: Immature Reticulocyte Fraction 22.2 % (3.0-15.9); Reticulocyte Hemoglobin Conten 27.7 pg (28.2-35.7); Reticulocyte Percent 2.64 % (0.7-4.3); Reticulocytes Absolute 0.09 M/mm3 (0.02-0.1)
[2022-10-16 08:26] LABS: Glucose Point of Care 142 mg/dl (65-105)
[2022-10-16] MEDS: cilostazoL 50 MG TABLET PO ×2 (08:27→17:50)
[2022-10-16] MEDS: allopurinoL 50 MG TABLET PO (08:27)
[2022-10-16] MEDS: APIXABAN 5 MG TABLET 10 MG PO ×2 (08:28→20:04)
[2022-10-16] MEDS: CEFEPIME 2 GM/NS 50 ML 2 GM/50 ML BAG IVPB ×2 (08:28→20:04)
[2022-10-16 08:29] LABS: Lactate Dehydrogenase 188 U/L (120-246)
[2022-10-16] MEDS: DIGOXIN TAB 125 MCG TABLET PO (08:29)
[2022-10-16] MEDS: CYCLOBENZAPRINE HCL 5 MG TABLET PO ×2 (08:29→17:50)
[2022-10-16 08:30] LABS: Bilirubin Indirect 0.2 mg/dL (0-1.1); Iron 144 ug/dL (37-170)
[2022-10-16] MEDS: ISOSORBIDE MONONITRATE 30 MG TAB.ER.24H PO ×2 (08:31→20:05)
[2022-10-16] MEDS: guaiFENesin 12 HR 600 MG TABCR PO ×2 (08:31→20:04)
[2022-10-16] MEDS: MORPHINE SULFATE (*CRX) 60 MG TABCR PO ×2 (08:32→20:05)
[2022-10-16] MEDS: POTASSIUM CHLORIDE 20 MEQ ER TABLET 40 MEQ PO (08:32)
[2022-10-16] MEDS: levETIRAcetam 500 MG TABLET PO ×2 (08:32→20:04)
[2022-10-16] MEDS: RANOLAZINE 500 MG TAB.ER.12H PO ×2 (08:32→20:05)
[2022-10-16 08:40] LABS: Percent Iron Saturation 78 % (20-50)
[2022-10-16] MEDS: ACETYLCYSTEINE 20% INHAL SOLN 800 MG/4 ML VIAL 200 MG INHALATION ×2 (09:03→19:47)
[2022-10-16] MEDS: GABAPENTIN 100 MG CAPSULE 200 MG PO ×2 (09:22→17:50)
[2022-10-16] MEDS: PANTOPRAZOLE 40 MG TABLET PO ×2 (09:22→17:50)
[2022-10-16 12:16] LABS: Glucose Point of Care 121 mg/dl (65-105)
[2022-10-16 17:20] LABS: Glucose Point of Care 145 mg/dl (65-105)
[2022-10-16 19:53] LABS: Glucose Point of Care 188 mg/dl (65-105)
[2022-10-16] MEDS: INSULIN GLARGINE (*BKC) 100 UNITS/ML 15 UNITS SUB-Q (20:05)
--- NOTE | 2022-10-16 22:47 | P.PNCROSS_ITS ---
Event Note Event Note Event Note: I was notified by the nurse that patient fell to the ground from her height at 9:50 p.m.. Chart reviewed. She is a 67-year-old female with a past medical history significant for chronic respiratory failure on chronic oxygen, COPD/emphysema, bed at her sick cancer with unknown primary, currently admitted for acute on chronic respiratory failure and being treated for pneumonia. Patient was seen and examined at the bedside. Patient reports that she hit her head on the right-side. She is awake alert oriented x3. per night supervisor nurse, Her mentation is at baseline. Vital signs are stable with a BP of 126/89, pulse 111, respiration 18, temp 97.9? F, O2 sat 94% on room air. Head: Normal cephalic, atraumatic. Heart rate is regular. Lungs are clear. Abdomen soft not tender. Extremities: Grossly nonfocal. Labs reviewed. Her CBC shows a WBC of 10.6, hemoglobin 9.2, hematocrit 29 0.9 and a platelet count of 309. PLAN Patient fell and hit her head. She is on anticoagulation with apixaban. Physical exam is reassuring. Due to chronic anticoagulation, will proceed with head CT.
[2022-10-16] MEDS: VANCOMYCIN 1,000 MG/NS 250 ML 1,000 MG/250 ML BAG 250 MG IVPB (23:25)
[2022-10-17] VITALS (19 sets, daily range): BP systolic 103–153; BP diastolic 68–82; PULSE 78–124; RESP 16–22; TEMP 36.6–36.9; O2SAT 90–97
[2022-10-17] MEDS: ALBUTEROL SULFATE NEB 2.5 MG/3 ML INH INHALATION ×4 (01:54→20:26)
[2022-10-17] MEDS: IPRATROPIUM BR 0.02% INH SOLN 0.5 MG/2.5 ML VIAL INHALATION ×4 (01:55→20:27)
[2022-10-17 05:55] LABS: Basophils Percent Auto 0.2 % (0.2-1.2); Eosinophils Absolute Auto 0.1 K/mm3 (0-0.3); Eosinophils Percent Auto 0.6 % (0-4.4); Hematocrit 30.4 % (37.0-47.0); Hemoglobin 9.4 g/dL (12.0-15.0); Immature Granulocyte Absolute 0.06 K/mm3 (0.00-0.031); Immature Granulocyte Percent A 0.7 % (0-0.5); Lymphocytes Absolute Auto 0.83 K/mm3 (0.9-3.2); Lymphocytes Percent Auto 9.7 % (18.3-44.2); Mean Corpuscular HGB Conc 30.9 g/dl (32-36); Mean Corpuscular Volume 87.4 fl (80-100); Mean Platelet Volume 8.7 fl (7.4-10.4); Monocytes Absolute Auto 0.6 K/mm3 (0.1-0.6); Monocytes Percent Auto 6.9 % (2.6-8.5); Neutrophils Percent Auto 81.9 % (45.5-73.1); Platelet Count Result 318 k/mm3 (150-375); Red Blood Count 3.48 M/mm3 (4.2-5.4); Red Cell Distribution Width 14.1 % (11.5-14.5); White Blood Count 8.5 K/mm3 (4.5-10.0)
[2022-10-17 06:15] LABS: Alanine Aminotransferase 14 U/L (6-35); Albumin Level 2.8 g/dL (3.5-5.1); Alkaline Phosphatase 127 U/L (38-126); Anion Gap 2 mmol/L (8-16); Aspartate Amino Transferase 21 U/L (14-36); Bilirubin,Total 0.5 mg/dL (0.2-1.3); Blood Urea Nitrogen 27 mg/dL (7-17); Calcium 8.1 mg/dL (8.4-10.2); Carbon Dioxide 36 mmol/L (22-30); Chloride 102 mmol/L (98-107); Estimated CRCL calculation 31 ml/min; Estimated Glomerular Filt Rate 41; Glucose 74 mg/dL (65-110); Magnesium 1.7 mg/dL (1.6-2.3); Sodium 140 mmol/L (137-145)
[2022-10-17] MEDS: SODIUM CHLORIDE 0.9% IV 1,000 ML 75 ML IV CONT ×2 (06:51→18:48)
[2022-10-17] MEDS: ACETYLCYSTEINE 20% INHAL SOLN 800 MG/4 ML VIAL 200 MG INHALATION ×2 (07:27→20:27)
[2022-10-17] MEDS: FLUTICASONE/UMECLIDIN/VILANTER 100-62.5-25 MCG ELLIPTA 1 PUFF INHALATION (07:31)
[2022-10-17] MEDS: cilostazoL 50 MG TABLET PO ×2 (08:34→17:00)
[2022-10-17] MEDS: allopurinoL 50 MG TABLET PO (08:34)
[2022-10-17] MEDS: APIXABAN 5 MG TABLET 10 MG PO ×2 (08:35→21:33)
[2022-10-17] MEDS: CEFEPIME 2 GM/NS 50 ML 2 GM/50 ML BAG IVPB (08:35)
[2022-10-17] MEDS: DIGOXIN TAB 125 MCG TABLET PO (08:36)
[2022-10-17] MEDS: CYCLOBENZAPRINE HCL 5 MG TABLET PO ×2 (08:36→17:00)
[2022-10-17] MEDS: MORPHINE SULFATE (*CRX) 60 MG TABCR PO ×2 (08:37→21:33)
[2022-10-17] MEDS: guaiFENesin 12 HR 600 MG TABCR PO ×2 (08:37→21:33)
[2022-10-17] MEDS: ISOSORBIDE MONONITRATE 30 MG TAB.ER.24H PO ×2 (08:37→21:33)
[2022-10-17] MEDS: RANOLAZINE 500 MG TAB.ER.12H PO ×2 (08:37→21:33)
[2022-10-17] MEDS: GABAPENTIN 100 MG CAPSULE 200 MG PO ×2 (08:37→17:01)
[2022-10-17] MEDS: PANTOPRAZOLE 40 MG TABLET PO ×2 (08:37→17:01)
[2022-10-17] MEDS: levETIRAcetam 500 MG TABLET PO ×2 (08:37→21:33)
[2022-10-17 08:41] LABS: Glucose Point of Care 78 mg/dl (65-105)
--- NOTE | 2022-10-17 09:10 | PM.IMPN ---
Progress Note: A&P Assessment and Plan (1) Acute on chronic respiratory failure: Qualifiers: Respiratory failure complication: hypoxia and hypercapnia Qualified Code(s): J96.21 - Acute and chronic respiratory failure with hypoxia; J96.22 - Acute and chronic respiratory failure with hypercapnia Code(s): J96.20 - Acute and chronic respiratory failure, unspecified whether with hypoxia or hypercapnia Status: Acute Assessment and Plan: admit to regular medical floor continue supplemental oxygen. Home o2 is 3 L NC which is what she is on now. breathing treatments no steroids necessary at this time as patient denies symptoms of COPD exacerbation (2) Pneumonia: Qualifiers: Laterality: left Lung location: lower lobe of lung Pneumonia type: due to unspecified organism Qualified Code(s): J18.9 - Pneumonia, unspecified organism Code(s): J18.9 - Pneumonia, unspecified organism Status: Acute Assessment and Plan: -Given recent hospital admission for pneumonia in August, will cover with levaquin, cefe, and vanco renally dosed for HEATHER -Leukocytosis has resolved -NS @ increased to 100 ml per hour -Mucous plugging in lower lobes. Added mucinex BID. -supplemental oxygen -breathing treatments ordered -blood cultures negative, MRSA negative. Will discontinue vanco and cefe -Levaquin started 10/15. Renally dosed. Will switch to PO on 10/19 for last dose. (3) Insulin dependent type 2 diabetes mellitus: Code(s): E11.9 - Type 2 diabetes mellitus without complications; Z79.4 - long term care social worker (current) use of insulin Status: Acute Assessment and Plan: continue to monitor insulin sliding scale as needed Lantus 15 units at HS ac/hs accu checks dm diet check A1c in the am.( 7.4 ) (4) Chronic anticoagulation: Code(s): Z79.01 - assisted (current) use of anticoagulants Status: Acute Assessment and Plan: see DVT (5) Acute exacerbation of chronic obstructive pulmonary disease: Code(s): J44.1 - Chronic obstructive pulmonary disease with (acute) exacerbation Status: Acute Assessment and Plan: breathing treatments q.6 hours ABG with compensated respiratory acidosis (6) Metastatic adenocarcinoma to liver with unknown primary site: Code(s): C78.7 - Secondary malignant neoplasm of liver and intrahepatic bile duct; C80.1 - Malignant (primary) neoplasm, unspecified Status: Acute Assessment and Plan: currently receiving treatment with chemotherapy and radiation consider hospice (7) Dvt femoral (deep venous thrombosis): Code(s): I82.419 - Acute embolism and thrombosis of unspecified femoral vein Status: Acute Assessment and Plan: -US shows thrombosis within the left greater saphenous vein, DVT of left common femoral, and superficial femoral veins. -Likely provoked from malignancy -D dimer elevated but CTA was negative for PE. -Xarelto was inappropriately dosed as an outpatient as Xarelto 2.5 mg PO BID. Stop Xarelto here and started on treatment dose with Eliquis 10 mg twice daily for 7 days followed by 5 mg twice daily. Will start 5 mg PO BID on 09/22. (8) HEATHER (acute kidney injury): Code(s): N17.9 - Acute kidney failure, unspecified Status: Acute Assessment and Plan: -Cr on admission 1.2-->1.5--->1.4-->1.3 today -was started on IVF and then dose increased with bump in Cr. -Low likely of tumor lysis syndrome as K+ and Phos are normal but I checked a uric acid anyway which was slightly elevated at 9.4. She does have an anemia with hgb 9.2 with a baseline 13-14gm/dL from August labs. So is this rise from a hemolytic component versus malignancy? I spoke with Dr Ortiz with Heme/Onc who said it would be appropriate to start her on allopurinol. -Renally dose allopurinol 50 mg PO daily. -FENa is 0.08%, pre-renal HEATHER (9) Anemia: Code(s): D64.9 - Anemia, unspecified Status
--- NOTE | 2022-10-17 09:30 | P.CDI_ITS ---
CDI Query Clarification Request Documented history of CHF. Lasix listed as home medication. Elevated BNP on 10/14/22 lab work. Please specify type and acuity of heart failure if known. * Acute * Chronic * Acute on Chronic * Unknown * Systolic * Diastolic * Combined Systolic and Diastolic * Unknown <Shayla Shah RN - Last Filed: 10/17/22 09:34> Clarified Diagnosis Clarified Diagnosis: Acute on Chronic Systolic Heart failure <Lorena Dias APRN - Last Filed: 10/17/22 09:43>
--- NOTE | 2022-10-17 09:30 | WPDCDIQUERY2 ---
CDI Query Clarification Request Documented history of CHF. Lasix listed as home medication. Elevated BNP on 10/14/22 lab work. Please specify type and acuity of heart failure if known. Acute Chronic Acute on Chronic Unknown Systolic Diastolic Combined Systolic and Diastolic Unknown <Shayla Shah RN - Last Filed: 10/17/22 09:34> Clarified Diagnosis Clarified Diagnosis: Acute on Chronic Systolic Heart failure <Lorena Dias APRN - Last Filed: 10/17/22 09:43>
[2022-10-17] MEDS: levoFLOXacin 750 MG/D5W 150 ML 750 MG/150 ML BAG 100 MG IVPB (11:08)
[2022-10-17 12:03] LABS: Glucose Point of Care 133 mg/dl (65-105)
--- NOTE | 2022-10-17 13:39 | PCPTNOTE ---
On 10/17/22, the student, ABBEY Santos, provided care and completed [facility] documentation on this patient. I have reviewed the student's documentation and agree with the findings.
[2022-10-17 15:26] LABS: Fractional Inspired Oxygen 32 %; Oxygen Content ABG 13.1 %vol (16.0-22.0); PCO2 ABG 47.9 mmHg (35.0-45.0); PO2 FiO2 Ratio Arterial Blood 1.53 %; pH ABG 7.443 (7.350-7.450)
[2022-10-17 15:33] LABS: Modified Allen's Test Pass; Oxygen Saturation ABG 85.8 % (95.0-100.0); Oxyhemoglobin 84.4 % THb (90.0-100.0); PO2 ABG 49.1 mmHg (80.0-100.0); Site Drawn LEFT RADIAL
[2022-10-17 15:34] LABS: Device NASAL CANNULA
[2022-10-17 15:44] LABS: Ammonia < 9 umol/L (9-30)
[2022-10-17 17:09] LABS: Glucose Point of Care 103 mg/dl (65-105)
[2022-10-17] MEDS: INSULIN GLARGINE (*BKC) 100 UNITS/ML 15 UNITS SUB-Q (21:37)
[2022-10-17 21:55] LABS: Glucose Point of Care 132 mg/dl (65-105)
[2022-10-18] VITALS (21 sets, daily range): BP systolic 131–133; BP diastolic 59–66; PULSE 88–112; RESP 18–22; TEMP 36.7–36.8; O2SAT 86–100
[2022-10-18 01:08] LABS: Glucose Point of Care 90 mg/dl (65-105)
[2022-10-18] MEDS: ALBUTEROL SULFATE NEB 2.5 MG/3 ML INH INHALATION ×3 (02:34→14:12)
[2022-10-18] MEDS: IPRATROPIUM BR 0.02% INH SOLN 0.5 MG/2.5 ML VIAL INHALATION ×3 (02:34→14:12)
[2022-10-18 05:19] LABS: Basophils Percent Auto 0.4 % (0.2-1.2); Eosinophils Absolute Auto 0.1 K/mm3 (0-0.3); Eosinophils Percent Auto 0.8 % (0-4.4); Hematocrit 30.7 % (37.0-47.0); Hemoglobin 9.2 g/dL (12.0-15.0); Immature Granulocyte Absolute 0.08 K/mm3 (0.00-0.031); Lymphocytes Absolute Auto 1.17 K/mm3 (0.9-3.2); Lymphocytes Percent Auto 14.1 % (18.3-44.2); Mean Corpuscular Hemoglobin 26.9 pg (26-34); Mean Corpuscular Volume 89.8 fl (80-100); Mean Platelet Volume 8.7 fl (7.4-10.4); Monocytes Absolute Auto 0.6 K/mm3 (0.1-0.6); Neutrophils Absolute Auto 6.4 K/mm3 (1.3-6.7); Neutrophils Percent Auto 76.7 % (45.5-73.1); Platelet Count Result 277 k/mm3 (150-375); Red Blood Count 3.42 M/mm3 (4.2-5.4); Red Cell Distribution Width 14.3 % (11.5-14.5); White Blood Count 8.3 K/mm3 (4.5-10.0)
[2022-10-18 05:30] LABS: INR 1.9; Prothrombin Time 22.6 Seconds (11.1-14.7)
[2022-10-18 05:31] LABS: Partial Thromboplastin Time 51.2 SECONDS (22.3-36.8)
[2022-10-18 05:37] LABS: Alanine Aminotransferase 15 U/L (6-35); Alkaline Phosphatase 127 U/L (38-126); Anion Gap 5 mmol/L (8-16); Aspartate Amino Transferase 20 U/L (14-36); Bilirubin,Total 0.6 mg/dL (0.2-1.3); Blood Urea Nitrogen 17 mg/dL (7-17); Calcium 8.2 mg/dL (8.4-10.2); Carbon Dioxide 31 mmol/L (22-30); Chloride 103 mmol/L (98-107); Estimated CRCL calculation 39 ml/min; Estimated Glomerular Filt Rate 55; Glucose 114 mg/dL (65-110); Potassium 4.1 mmol/L (3.4-5.0); Sodium 139 mmol/L (137-145)
[2022-10-18] MEDS: cilostazoL 50 MG TABLET PO (06:57)
[2022-10-18 08:09] LABS: Glucose Point of Care 99 mg/dl (65-105)
[2022-10-18] MEDS: levETIRAcetam 500 MG TABLET PO (08:28)
[2022-10-18] MEDS: GABAPENTIN 100 MG CAPSULE 200 MG PO (08:28)
[2022-10-18] MEDS: guaiFENesin 12 HR 600 MG TABCR PO (08:28)
[2022-10-18] MEDS: CYCLOBENZAPRINE HCL 5 MG TABLET PO (08:28)
[2022-10-18] MEDS: MORPHINE SULFATE (*CRX) 60 MG TABCR PO (08:28)
[2022-10-18] MEDS: RANOLAZINE 500 MG TAB.ER.12H PO (08:28)
[2022-10-18] MEDS: APIXABAN 5 MG TABLET 10 MG PO (08:29)
[2022-10-18] MEDS: PANTOPRAZOLE 40 MG TABLET PO (08:29)
[2022-10-18] MEDS: ISOSORBIDE MONONITRATE 30 MG TAB.ER.24H PO (08:29)
[2022-10-18] MEDS: allopurinoL 50 MG TABLET PO (08:29)
[2022-10-18] MEDS: DIGOXIN TAB 125 MCG TABLET PO (08:29)
[2022-10-18] MEDS: ACETYLCYSTEINE 20% INHAL SOLN 800 MG/4 ML VIAL 200 MG INHALATION (09:54)
[2022-10-18] MEDS: FLUTICASONE/UMECLIDIN/VILANTER 100-62.5-25 MCG ELLIPTA 1 PUFF INHALATION (10:03)
--- NOTE | 2022-10-18 11:46 | PCRCNOTE ---
HOME O2 EVAL COMPLETE, 3 LITERS REST AND ACTIVITY. NO CHANGE IN HOME SETTINGS. PT'S FAMILY TO BRING IN TANK FOR DISCHARGE.
[2022-10-18 12:12] LABS: Glucose Point of Care 157 mg/dl (65-105)
[2022-10-18] MEDS: SODIUM CHLORIDE 0.9% IV 1,000 ML 75 ML IV CONT (14:49)
--- NOTE | 2022-10-18 15:46 | PM.DS ---
DS: Admitting Diagnosis Discharge Date 10/18/2022 Admitting Diagnosis Acute on chronic respiratory failure Pneumonia left lower lobe Insulin dependent Type 2 DM Chronic anticoagulation Acute exacerbation of chronic obstructive pulmonary disease Metastatic adenocarcinoma to liver with unknown primary site DS: Discharge Diagnosis Discharge Diagnosis (1) Acute on chronic respiratory failure: Qualifiers: Respiratory failure complication: hypoxia and hypercapnia Qualified Code(s): J96.21 - Acute and chronic respiratory failure with hypoxia; J96.22 - Acute and chronic respiratory failure with hypercapnia Code(s): J96.20 - Acute and chronic respiratory failure, unspecified whether with hypoxia or hypercapnia Status: Acute Assessment and Plan: Improved and stable on home oxygen 3 liters/minute (2) Pneumonia: Code(s): J18.9 - Pneumonia, unspecified organism Status: Acute Assessment and Plan: Patient to get 2 doses of Levaquin 750 mg oral upon discharge. Was previously being treated with renal dosing however renal function has returned to normal your cough. 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 (4) Dvt femoral (deep venous thrombosis): Code(s): I82.419 - Acute embolism and thrombosis of unspecified femoral vein Status: Acute Assessment and Plan: Acute DVT right lower extremity with swelling noted. Eliquis started and home Xarelto stopped. (5) Anemia: Code(s): D64.9 - Anemia, unspecified Status: Acute Assessment and Plan: Stable at 9.2 Hemoglobin (6) HEATHER (acute kidney injury): Code(s): N17.9 - Acute kidney failure, unspecified Status: Acute Assessment and Plan: Resolved, back to baseline function (7) Acute exacerbation of chronic obstructive pulmonary disease: Code(s): J44.1 - Chronic obstructive pulmonary disease with (acute) exacerbation Status: Acute Assessment and Plan: Stable on home oxygen (8) Metastatic adenocarcinoma to liver with unknown primary site: Code(s): C78.7 - Secondary malignant neoplasm of liver and intrahepatic bile duct; C80.1 - Malignant (primary) neoplasm, unspecified Status: Acute Assessment and Plan: Patient undergoing outpatient treatment/chemotherapy. No changes to plan at this time. (9) Coarse tremors: Code(s): G25.2 - Other specified forms of tremor Status: Acute Plan Discharge back to facility on home oxygen with prescriptions for allopurinol, Eliquis and Levaquin DS: Summary Hospital Course Reason for hospitalization: This is a 67-year-old female patient who was admitted to the hospital for acute on chronic respiratory failure and COPD due to hypoxia shortness of breath and altered mental status. Hospital Course: During hospitalization patient received treatment for pneumonia and noted to acute kidney injury so medications were renally dosed. She has remained on IV fluids and follow HEATHER has resolved. Patient was planning to discharge yesterday but she was more drowsy and had gross muscle tremors that were worsened and not previously noted. This morning patient reports that she has had the tremors for months to years. This afternoon patient more alert more awake and much less tremor activity noted. No signs the patient has actually experienced any seizure activity while here. Patient's respiratory status is nonlabored on 3 L per nasal cannula with adequate oxygen saturation today. She notes that she is feeling well. A CT scan was negative for PE though a right lower extremity DVT was noted. Additionally, CT scan of the brain shows a 7 mm colloid cyst in the anterior 3rd ventricle with no signs of hydrocephalus. Christy
[2022-10-18 17:00] LABS: Glucose Point of Care 136 mg/dl (65-105)
[2022-10-18 21:52] LABS: Osmolality, Urine 348 mOsm/kg (50-1200)
[2022-10-19 19:05] LABS: Haptoglobin 286 mg/dL (43-212)
--- NOTE | 2022-10-24 09:42 | PC.NURSE ---
Blood cultures are negative.
== END 2022-10-18 17:25 | DRG 193 ==
LOC: ANHED 18:05 → ANH2MED 20:15
PROVIDERS: Nurse Practitioner Acute Care; Admitting Provider Internal Medicine; Emergency Provider Physician Assistant; PCP Internal Medicine; Visit Provider Nurse Practitioner
DX: J18.9 Pneumonia, unspecified organism (principal); I50.23 Acute on chronic systolic (congestive) heart failure; J96.21 Acute and chronic respiratory failure with hypoxia; J96.22 Acute and chronic respiratory failure with hypercapnia; N17.9 Acute kidney failure, unspecified; J44.1 Chronic obstructive pulmonary disease with (acute) exacerbation; J44.0 Chronic obstructive pulmonary disease with (acute) lower respiratory infection; C78.7 Secondary malignant neoplasm of liver and intrahepatic bile duct; I82.412 Acute embolism and thrombosis of left femoral vein; I82.812 Embolism and thrombosis of superficial veins of left lower extremity; T17.890A Other foreign object in other parts of respiratory tract causing asphyxiation, initial encounter; W18.39XA Other fall on same level, initial encounter; D64.9 Anemia, unspecified; C80.1 Malignant (primary) neoplasm, unspecified; Z20.822 Contact with and (suspected) exposure to COVID-19; E11.42 Type 2 diabetes mellitus with diabetic polyneuropathy; G25.2 Other specified forms of tremor; Z79.4 Long term (current) use of insulin; Z90.49 Acquired absence of other specified parts of digestive tract; Z99.81 Dependence on supplemental oxygen
CPT/HCPCS: 36415; 36600; 70450; 71045; 71275; 80048; 80053; 81001; 82140; 82375; 82570; 82607; 82746; 82805; 82948; 83010; 83036; 83050; 83540; 83550; 83615; 83735; 83880; 83935; 84100; 84300; 84550; 85025; 85046; 85380; 85610; 85730; 86880; 87040; 87081; 87636; 93005; 93971; 94618; 94640; 96361; 96365; 96367; 96375; 97110; 97161; 97530; 99285; A9270; G0378; J0456; J0692; J0696; J1650; J1815; J1956; J2930; J3370; J7030; J7040; Q9967

== ENCOUNTER 2023-01-03 11:46 | Outpatient (CLI) | payer MEDICARE, MEDICAID, SELFPAY ==
[2023-01-03 12:13] LABS: Basophils Absolute Auto 0.1 K/mm3 (0.0-0.1); Basophils Percent Auto 0.4 % (0.2-1.2); Eosinophils Absolute Auto 0.1 K/mm3 (0-0.3); Eosinophils Percent Auto 0.6 % (0-4.4); Hematocrit 46.3 % (37.0-47.0); Hemoglobin 14.3 g/dL (12.0-15.0); Immature Granulocyte Absolute 0.07 K/mm3 (0.00-0.031); Immature Granulocyte Percent A 0.6 % (0-0.5); Lymphocytes Absolute Auto 0.99 K/mm3 (0.9-3.2); Lymphocytes Percent Auto 8.4 % (18.3-44.2); Mean Corpuscular HGB Conc 30.9 g/dl (32-36); Mean Corpuscular Hemoglobin 27.7 pg (26-34); Mean Corpuscular Volume 89.6 fl (80-100); Mean Platelet Volume 10.3 fl (7.4-10.4); Monocytes Absolute Auto 0.4 K/mm3 (0.1-0.6); Monocytes Percent Auto 3.5 % (2.6-8.5); Neutrophils Absolute Auto 10.2 K/mm3 (1.3-6.7); Neutrophils Percent Auto 86.5 % (45.5-73.1); Platelet Count Result 139 k/mm3 (150-375); Red Blood Count 5.17 M/mm3 (4.2-5.4); Red Cell Distribution Width 14.8 % (11.5-14.5); White Blood Count 11.8 K/mm3 (4.5-10.0)
[2023-01-03 12:26] LABS: Alanine Aminotransferase 24 U/L (6-35); Albumin Level 4.2 g/dL (3.5-5.1); Alkaline Phosphatase 129 U/L (38-126); Anion Gap 12 mmol/L (8-16); Aspartate Amino Transferase 56 U/L (14-36); Bilirubin,Total 0.5 mg/dL (0.2-1.3); Blood Urea Nitrogen 84 mg/dL (7-17); Calcium 9.3 mg/dL (8.4-10.2); Carbon Dioxide 19 mmol/L (22-30); Chloride 107 mmol/L (98-107); Estimated Glomerular Filt Rate 14; Glucose 135 mg/dL (65-110); Potassium 5.5 mmol/L (3.4-5.0); Sodium 138 mmol/L (137-145)
[2023-01-15 16:48] LABS: Serotonin 38 ng/mL (56-244)
== END 2023-01-03 11:47 | disposition home or self-care (01) ==
PROVIDERS: Visit Provider Internal Medicine Hematology & Oncology
DX: Z85.89 Personal history of malignant neoplasm of other organs and systems (principal)
CPT/HCPCS: 36415; 80053; 84260; 85025

== ENCOUNTER 2023-01-05 16:43 | Inpatient (IN) | payer MEDICARE, MEDICAID, SELFPAY ==
[2023-01-05] VITALS (34 sets, daily range): BP systolic 101–172; BP diastolic 50–90; PULSE 103–129; RESP 11–26; TEMP 36.4–36.9; O2SAT 23–98
--- NOTE | ~2023-01-05 | XR_ITS ---
EXAMINATION: XR chest 1V portable DATE: 01/05/2023 17:42 INDICATION: Shortness of breath. TECHNIQUE: A single frontal view of the chest was obtained. COMPARISON: Chest single view 10/14/2022, chest CT 10/14/2022 FINDINGS: There are lucencies and interstitial opacities in the lungs, consistent with emphysema. The re are airspace opacities in the mid and lower lung zones. No pleural effusion or pneumothorax. The h eart size is normal. There is a left internal jugular port with tip in right atrium. IMPRESSION: 1. Airspace opacities in the mid and lower lung zones, consistent with atelectasis versus pneumonia. 2. Emphysema. Reviewed, dictated and finalized at location E. IMPRESSION: 1. Airspace opacities in the mid and lower lung zones, consistent with atelecta sis versus pneumonia. 2. Emphysema.
--- NOTE | ~2023-01-05 | CT_ITS ---
EXAMINATION: CT brain wo con DATE: 01/05/2023 18:20 INDICATION: Altered mental status. TECHNIQUE: Computed tomography (CT) of the head was performed without intravenous contrast. The mA wa s adjusted according to patient size. Iterative reconstruction technique was employed. The dose-lengt h product was 681.00 mGy-cm. COMPARISON: Head CT 10/16/2022 FINDINGS: There is a 7 mm hyperdense colloid cyst in the anterior third ventricle. There is no acute ischemic infarct or intracranial hemorrhage. The ventricles are normal in size. The paranasal sinuses are clear. The orbits are normal. There is a small right mastoid effusion. IMPRESSION: 1. 7 mm colloid cyst in the anterior third ventricle. No hydrocephalus. Reviewed, dictated and finalized at location E.
--- NOTE | 2023-01-05 16:56 | ECG_ITS ---
Measurements Intervals [place] Rate: 123 P: 67 IA: 167 QRS: 55 QRSD: 80 T: 62 QT: 412 QTc: 590 Interpretive Statements SINUS TACHYCARDIA NONSPECIFIC ST & T-WAVE ABNORMALITY CANNOT RULE OUT SEPTAL INFARCTION ABNORMAL ECG COMPARED TO ECG 10/14/2022 18:59:28 T-WAVE ABNORMALITY NOW PRESENT Electronically Signed On 01-06-2023 8:27:47 CDT by David Dunaway M.D.
[2023-01-05 17:06] LABS: Hematocrit 47.5 % (37.0-47.0); Hemoglobin 14.6 g/dL (12.0-15.0); Mean Corpuscular HGB Conc 30.7 g/dl (32-36); Mean Corpuscular Hemoglobin 27.7 pg (26-34); Mean Corpuscular Volume 90.1 fl (80-100); Mean Platelet Volume 10.3 fl (7.4-10.4); Platelet Count Result 165 k/mm3 (150-375); Red Blood Count 5.27 M/mm3 (4.2-5.4); Red Cell Distribution Width 15.2 % (11.5-14.5); White Blood Count 8.3 K/mm3 (4.5-10.0)
--- NOTE | 2023-01-05 17:14 | ED.AMS ---
HPI - Altered Mental Status General Chief Complaint: Altered Mental Status <Jessenia Valenzuela APRN - Last Filed: 01/05/23 21:44> Stated Complaint: fever, low o2 <Jessenia Valenzuela APRN - Last Filed: 01/05/23 21:44> Time Seen by Provider: 01/05/23 17:14 <Jessenia Valenzuela APRN - Last Filed: 01/05/23 21:44> Source: patient and EMS <Jessenia Valenzuela APRN - Last Filed: 01/05/23 21:44> Mode of arrival: EMS <Jessenia Valenzuela APRN - Last Filed: 01/05/23 21:44> Limitations: altered mental status and clinical condition <Jessenia Valenzuela APRN - Last Filed: 01/05/23 21:44> History of Present Illness HPI narrative: patient is a 67 year female with a past medical history as noted below presents emergency department today via EMS for evaluation of altered mental status and low SpO2 saturations. She has been admitted to this facility for similar symptoms within the last few months. Per EMS the staff at the facility stated she was more confused, usually wears only 2L of O2 at all times. They placed her on 5L by NC and gave her LR fluids. She is also currently being treated for a kidney infection. The patient when asked denies pain. She is alert to herself. She is not giving anymore information at this time. <Jessenia Valenzuela APRN - Last Filed: 01/05/23 21:44> Related Data Home Medications: Home Medications Medication Instructions Recorded Confirmed cilostazol 50 mg tablet 50 mg PO BID 09/08/22 12/08/22 cyclobenzaprine 5 mg tablet 5 mg PO BID 09/08/22 12/08/22 digoxin 125 mcg (0.125 mg) tablet 125 mcg PO DAILY 09/08/22 12/08/22 everolimus (antineoplastic) 7.5 mg 7.5 mg PO DAILY 09/08/22 12/08/22 tablet furosemide 40 mg tablet 40 mg PO DAILY 09/08/22 12/08/22 gabapentin 100 mg capsule 200 mg PO BID 09/08/22 12/08/22 isosorbide mononitrate 30 mg 30 mg PO BID 09/08/22 12/08/22 tablet,extended release 24 hr levetiracetam 500 mg tablet 500 mg PO BID 09/08/22 12/08/22 (Keppra) loperamide 2 mg tablet 2 mg PO Q6H PRN Diarrhea 09/08/22 12/08/22 morphine 60 mg tablet,extended 60 mg PO Q12H 09/08/22 12/08/22 release omeprazole 40 mg capsule,delayed 40 mg PO DAILY 09/08/22 12/08/22 release prochlorperazine maleate 10 mg 10 mg PO Q6H PRN NAUSEA 09/08/22 12/08/22 tablet ranolazine 500 mg tablet,extended 500 mg PO BID 09/08/22 12/08/22 release,12 hr rosuvastatin 10 mg tablet 10 mg PO HS 09/08/22 12/08/22 tizanidine 2 mg tablet 2 mg PO Q6H PRN Muscle Spasm 09/08/22 12/08/22 fluticasone fur. 100 mcg-umeclid 1 inh inhalation DAILY 10/14/22 12/08/22 62.5 mcg-vilant 25 mcg inhalat.powder (Trelegy Ellipta) insulin glargine 100 unit/mL 15 unit subcut HS 10/14/22 12/08/22 subcutaneous solution (Lantus U-100 Insulin) ipratropium 18 mcg-albuterol 103 2 spray inhalation Q12H 10/14/22 12/08/22 mcg/actuation aerosol inhaler magnesium citrate (Citrate of 300 ml PO DAILY PRN CONSTIPATION 10/14/22 12/08/22 Magnesia oral) <Jessenia Valenzuela APRN - Last Filed: 01/05/23 21:44> Allergies/Adverse Reactions: Allergies Allergy/AdvReac Type Severity Reaction Status Date / Time No Known Allergies Allergy Verified 01/05/23 17:05 <Jessenia Valenzuela APRN - Last Filed: 01/05/23 21:44> Review of Systems Review of Systems: ROS unobtainable: Yes unobtainable due to mental status <Jessenia Valenzuela APRN - Last Filed: 01/05/23 21:44> [facility] Past Medical History Medical History: Medical History Chronic anticoagulation Chronic obstructive pulmonary disease Chronic respiratory failure with hypoxia Deep venous thrombosis Diabetic peripheral neuropathy Heart failure of unknown type Hyperlipidemia Hypertension Insulin dependent type 2 diabetes mellitus Metastatic adenocarcinoma to liver with unknown primary site Seizure disorder <Jessenia Valenzuela APRN - Last Filed: 01/05/23 21:44> Surgical History Surgical History: Surgical History
[2023-01-05 17:19] LABS: Alanine Aminotransferase 26 U/L (6-35); Alkaline Phosphatase 146 U/L (38-126); Anion Gap 15 mmol/L (8-16); Aspartate Amino Transferase 44 U/L (14-36); Bilirubin,Total 0.6 mg/dL (0.2-1.3); Blood Urea Nitrogen 83 mg/dL (7-17); Carbon Dioxide 17 mmol/L (22-30); Chloride 107 mmol/L (98-107); Estimated CRCL calculation 13 ml/min; Estimated Glomerular Filt Rate 17; Glucose 134 mg/dL (65-110); Potassium 5.4 mmol/L (3.4-5.0); Sodium 139 mmol/L (137-145)
[2023-01-05 17:25] LABS: INR 1.4; Prothrombin Time 18.1 Seconds (11.1-14.7)
[2023-01-05 17:26] LABS: Partial Thromboplastin Time 34.9 SECONDS (22.3-36.8)
[2023-01-05 17:54] LABS: Band Neutrophils Percent 14 % (0-6); Lymphocytes Absolute Manual 0.49 K/mm3 (1.1-4.5); Monocytes Absolute Manual 0.16 K/mm3 (0.1-0.90); Monocytes Percent Manual 2 % (3-9); Neutrophils Absolute Manual 7.63 K/mm3 (1.7-7.2); Neutrophils Percent Manual 78 % (46-73); Platelet Estimate Adequate (Adequate); Total Cells Counted 100
[2023-01-05 17:55] LABS: Anisocytosis 1+ (NORMAL); Hypochromasia 1+ (NORMAL); Schistocytes None Seen (NORMAL)
[2023-01-05 18:28] LABS: Alveolar/Arterial O2 Gradient 159.4 mmHg; Base Excess ABG -10.8 mEq/l (+/-2.0); Fractional Inspired Oxygen 36 %; HCO3 ABG 15.4 mEq/l (22.0-26.0); Oxygen Content ABG 17.8 %vol (16.0-22.0); PCO2 ABG 35.4 mmHg (35.0-45.0); PO2 ABG 56.2 mmHg (80.0-100.0); PO2 FiO2 Ratio Arterial Blood 1.56 %; Total Hemoglobin 14.7 g/dL (12.0-18.0)
[2023-01-05 18:30] LABS: Device NASAL CANNULA; Oxyhemoglobin 86.1 % THb (90.0-100.0); Site Drawn RIGHT BRACHIAL; pH ABG 7.255 (7.350-7.450)
[2023-01-05] MEDS: IPRATROPIUM BR 0.02% INH SOLN 0.5 MG/2.5 ML VIAL INHALATION (18:34)
[2023-01-05] MEDS: ALBUTEROL SULFATE NEB 2.5 MG/3 ML INH INHALATION (18:34)
[2023-01-05 18:35] LABS: Lactic Acid Reflex 1.2 mmol/L (0.7-2.0)
[2023-01-05 18:44] LABS: NT Pro B Type Natriuretic Pept 1250 pg/mL (19.9-100)
[2023-01-05] MEDS: SODIUM CHLORIDE 0.9% IV 1,000 ML 999 ML IV CONT (18:45)
[2023-01-05] MEDS: methylPREDNISolone SOD SUCC 125 MG VIAL 62.5 MG IV PUSH (18:46)
[2023-01-05 18:56] LABS: Troponin I 0.032 ng/mL (0.000-0.034)
[2023-01-05 19:03] LABS: Influenza A QL RT-PCR Negative (Negative); Influenza B QL RT-PCR Negative (Negative); SARS-CoV-2 RNA PCR Negative (Negative)
[2023-01-05 19:08] LABS: Appearance Urine Cloudy (Clear); Bacteria Urine None Seen /hpf; Bilirubin Urine Negative (Negative); Blood Urine Negative (Negative); Color Urine Yellow (Yellow); Glucose Urine UA 2+ mg/dL (Negative); Ketones Urine Trace mg/dL (Negative); Leukocyte Esterase Ur Negative LEU/UL (Negative); Need Manual Microscopic Reviewed; Nitrate Urine Negative (Negative); Protein Urine 2+ mg/dL (Negative); RBC Urine 0-2 /hpf (0-2); Specific Grav Ur 1.018 (1.001-1.035); Squamous Epithelial Cell Urine Few /hpf (Few); Urobilinogen Urine 0.2 mg/dL (<2.0); WBC Urine 0-5 /hpf
[2023-01-05 19:23] LABS: Add Urine Microscopic? YES
[2023-01-05] MEDS: FUROSEMIDE INJ 40 MG/4 ML VIAL IV PUSH (20:10)
--- NOTE | 2023-01-05 20:50 | PC.NURSE ---
Pt requiring 6L NC to maintain O2 sats max of 92%. Dr. Geller in room to assess and verbalized need for bipap. RT called to place pt on bipap.
[2023-01-05 21:11] LABS: Alveolar/Arterial O2 Gradient 172.1 mmHg; Base Excess ABG -11.3 mEq/l (+/-2.0); Fractional Inspired Oxygen 40 %; HCO3 ABG 15.4 mEq/l (22.0-26.0); Modified Allen's Test Pass; Oxygen Content ABG 17.9 %vol (16.0-22.0); Oxyhemoglobin 90.8 % THb (90.0-100.0); PCO2 ABG 37.6 mmHg (35.0-45.0); PO2 ABG 69.9 mmHg (80.0-100.0); PO2 FiO2 Ratio Arterial Blood 1.75 %; Site Drawn LEFT RADIAL; pH ABG 7.231 (7.350-7.450)
[2023-01-05 21:12] LABS: Device NASAL CANNULA
--- NOTE | 2023-01-05 23:29 | PM.IMHP ---
H&P: HPI History of Present Illness Date/Time: 01/05/23 23:29 Chief Complaint: patient was brought to the ER for evaluation by IMS secondary to altered mental status and hypoxia Narrative: She is a very unfortunate 67 years old white female who appears older than her real age. She is a longterm resident and was sent to the ER for evaluation because of altered mental status and hypoxia. She has chronic hypoxia requiring 2 L oxygen via nasal cannula as baseline. She was evaluated by EMS and started on 5 L IV Ringer's lactate enroute to ER. She also has neuroendocrine cancer with liver metastasis for which she is under care of heme Onc. Prior notes reveal that she was supposed to be evaluated by hospice care on 01/04/2023. She has been started on oxygen via nasal cannula, given IV fluids and antibiotics and is being admitted for medical management, hospice evaluation and close monitoring. Review of Systems Review of Systems: Unable to be obtained. Patient is pleasantly confused. ROS unobtainable: Yes unobtainable due to medical condition and unobtainable due to mental status PMFSH Past Medical History Medical History Chronic anticoagulation Chronic obstructive pulmonary disease Chronic respiratory failure with hypoxia Deep venous thrombosis Diabetic peripheral neuropathy Heart failure of unknown type Hyperlipidemia Hypertension Insulin dependent type 2 diabetes mellitus Metastatic adenocarcinoma to liver with unknown primary site Seizure disorder Surgical History Surgical History History of cholecystectomy History of liver biopsy History of open reduction and internal fixation (ORIF) procedure Repair right leg fracture Port-A-Cath in place Family History Family History Father Diabetes mellitus Myocardial infarct Mother Diabetes mellitus Cerebrovascular accident Myocardial infarct Social History Social History Social History: Surrogate medical decision maker: Jessenia Brar, granddaughter. Code status: Full code. Smoking packs per day: 1 Smoking cigarettes per day: 20.0 Years smoked: 30 Smoking pack-years: 30.00 Smoking status: Unknown if ever smoked Tobacco type: cigarettes Second hand tobacco smoke exposure: No Alcohol intake: never Substance use: never Lack of Transportation: No Lack of Food: Never True Current Housing: I Have Housing Concerned About Future Housing: No Difficulty Paying Gas/Electric Bills: No Difficulty Paying for Meds: YES Currently Unemployed: YES Education: High School Diploma/GED Difficulty w/ Childcare or Family Care: No Living arrangements: with family Additional living arrangements comments: Patient recently moved back to the area within the last month and she is currently staying with her granddaughter. Spiritual care concerns: No Meds Home Medications and Allergies Home Medications Medication Instructions Recorded Confirmed Type cilostazol 50 mg tablet 50 mg PO Q12H 09/08/22 01/06/23 History cyclobenzaprine 5 mg tablet 5 mg PO BID 09/08/22 01/06/23 History digoxin 125 mcg (0.125 mg) tablet 125 mcg PO DAILY 09/08/22 01/06/23 History everolimus (antineoplastic) 7.5 mg 7.5 mg PO DAILY 09/08/22 01/06/23 History tablet furosemide 40 mg tablet 40 mg PO DAILY 09/08/22 01/06/23 History gabapentin 100 mg capsule 200 mg PO BID 09/08/22 01/06/23 History isosorbide mononitrate 30 mg 30 mg PO BID 09/08/22 01/06/23 History tablet,extended release 24 hr levetiracetam 500 mg tablet 500 mg PO Q12H 09/08/22 01/06/23 History (Keren) loperamide 2 mg tablet 2 mg PO Q6H PRN Diarrhea 09/08/22 01/06/23 History morphine 60 mg tablet,extended 60 mg PO Q12H 09/08/22 01/06/23 History release omeprazole 40 mg capsule,delayed 40 mg PO
--- NOTE | 2023-01-05 23:30 | ADMGEN ---
This patient, Moriah Lynn, was admitted to IMU Room 200-01 . Patient/family oriented to hospital policies and general routines including ID bracelet, bed and alarms, visiting hours, pain management, procedures, bathroom and other care routines, personal items, smoking policy, room service/diet, and visiting hours. Information on how to activate the Rapid Response Team has been discussed. Patient/Family are encouraged to report perceived risks to care and to ask questions if they do not understand what they are told or what they should do.
[2023-01-06] VITALS (27 sets, daily range): BP systolic 101–122; BP diastolic 40–53; PULSE 83–107; RESP 10–22; TEMP 36.1–36.6; O2SAT 89–98; BMI 18.9
[2023-01-06] MEDS: SODIUM CHLORIDE 0.9% IV 1,000 ML 50 ML IV CONT (03:28)
[2023-01-06 05:23] LABS: Basophils Percent Auto 0.3 % (0.2-1.2); Hemoglobin 12.6 g/dL (12.0-15.0); Immature Granulocyte Absolute 0.05 K/mm3 (0.00-0.031); Immature Granulocyte Percent A 0.7 % (0-0.5); Lymphocytes Percent Auto 6.5 % (18.3-44.2); Mean Corpuscular Hemoglobin 27.6 pg (26-34); Mean Corpuscular Volume 92.1 fl (80-100); Monocytes Absolute Auto 0.2 K/mm3 (0.1-0.6); Neutrophils Percent Auto 90.5 % (45.5-73.1); Platelet Count Result 141 k/mm3 (150-375); Red Blood Count 4.56 M/mm3 (4.2-5.4); Red Cell Distribution Width 15.2 % (11.5-14.5); White Blood Count 7.7 K/mm3 (4.5-10.0)
[2023-01-06] MEDS: methylPREDNISolone SOD SUCC 125 MG VIAL 60 MG IV PUSH ×3 (05:35→21:02)
[2023-01-06 05:47] LABS: Anion Gap 15 mmol/L (8-16); Blood Urea Nitrogen 85 mg/dL (7-17); Calcium 9.4 mg/dL (8.4-10.2); Carbon Dioxide 15 mmol/L (22-30); Chloride 112 mmol/L (98-107); Estimated CRCL calculation 13 ml/min; Estimated Glomerular Filt Rate 17; Glucose 156 mg/dL (65-110); Potassium 6.2 mmol/L (3.4-5.0); Sodium 142 mmol/L (137-145)
[2023-01-06] MEDS: SODIUM ZIRCONIUM CYCLOSILICATE 10 GM POWD.PACK 5 GM PO ×2 (06:27→16:25)
[2023-01-06] MEDS: CALCIUM GLUC 1,000 MG/NS 50 ML 1,000 MG/50 ML BAG 100 MG IVPB (06:40)
[2023-01-06] MEDS: cilostazoL 50 MG TABLET PO ×2 (08:43→18:11)
[2023-01-06] MEDS: GABAPENTIN 100 MG CAPSULE 200 MG PO ×2 (08:48→18:12)
[2023-01-06] MEDS: DIGOXIN TAB 125 MCG TABLET PO (08:53)
[2023-01-06] MEDS: CYCLOBENZAPRINE HCL 5 MG TABLET PO ×2 (08:54→18:11)
[2023-01-06] MEDS: APIXABAN 5 MG TABLET PO ×2 (08:54→21:01)
[2023-01-06] MEDS: levETIRAcetam 500 MG TABLET PO ×2 (08:54→21:01)
[2023-01-06] MEDS: MORPHINE SULFATE (*CRX) 60 MG TABCR PO (08:54)
[2023-01-06] MEDS: EMPAGLIFLOZIN 10 MG TABLET PO (08:56)
[2023-01-06] MEDS: allopurinoL 100 MG TABLET PO (08:56)
[2023-01-06] MEDS: RANOLAZINE 500 MG TAB.ER.12H PO ×2 (08:56→21:00)
[2023-01-06] MEDS: ISOSORBIDE MONONITRATE 30 MG TAB.ER.24H PO ×2 (08:56→21:01)
[2023-01-06] MEDS: guaiFENesin 12 HR 600 MG TABCR PO ×2 (08:57→21:08)
[2023-01-06] MEDS: PANTOPRAZOLE 40 MG TABLET PO ×2 (08:57→18:12)
[2023-01-06 09:10] LABS: Glucose Point of Care 150 mg/dl (65-105)
[2023-01-06] MEDS: FLUTICASONE/UMECLIDIN/VILANTER 100-62.5-25 MCG ELLIPTA 1 PUFF INHALATION (09:58)
[2023-01-06] MEDS: ALBUTEROL SULFATE NEB 2.5 MG/3 ML INH INHALATION ×3 (09:59→20:27)
[2023-01-06] MEDS: IPRATROPIUM BR 0.02% INH SOLN 0.5 MG/2.5 ML VIAL INHALATION (10:00)
[2023-01-06] MEDS: SODIUM ZIRCONIUM CYCLOSILICATE 10 GM POWD.PACK PO (11:18)
--- NOTE | 2023-01-06 12:25 | PM.IMPN ---
Progress Note: A&P Assessment and Plan (1) Altered mental status: Qualifiers: Altered mental status type: unspecified Qualified Code(s): R41.82 - Altered mental status, unspecified Code(s): R41.82 - Altered mental status, unspecified Status: Acute (2) Coarse tremors: Code(s): G25.2 - Other specified forms of tremor Status: Acute (3) Anemia: Code(s): D64.9 - Anemia, unspecified Status: Acute (4) HEATHER (acute kidney injury): Code(s): N17.9 - Acute kidney failure, unspecified Status: Acute (5) Dvt femoral (deep venous thrombosis): Code(s): I82.419 - Acute embolism and thrombosis of unspecified femoral vein Status: Acute (6) Acute on chronic respiratory failure: Qualifiers: Respiratory failure complication: hypoxia and hypercapnia Qualified Code(s): J96.21 - Acute and chronic respiratory failure with hypoxia; J96.22 - Acute and chronic respiratory failure with hypercapnia Code(s): J96.20 - Acute and chronic respiratory failure, unspecified whether with hypoxia or hypercapnia Status: Acute (7) Pneumonia: Qualifiers: Laterality: left Lung location: lower lobe of lung Pneumonia type: due to unspecified organism Qualified Code(s): J18.9 - Pneumonia, unspecified organism Code(s): J18.9 - Pneumonia, unspecified organism Status: Acute 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 - Congenital cerebral cysts Status: Acute (9) History of lung cancer: Code(s): Z85.118 - Personal history of other malignant neoplasm of bronchus and lung Status: Acute (10) Lesion of vertebra: Code(s): M89.9 - Disorder of bone, unspecified Status: Acute (11) Abnormal mammogram of both breasts: Code(s): R92.8 - Other abnormal and inconclusive findings on diagnostic imaging of breast Status: Acute (12) Seizure disorder: Code(s): G40.909 - Epilepsy, unspecified, not intractable, without status epilepticus Status: Acute (13) Hyperlipidemia: Qualifiers: Hyperlipidemia type: unspecified Qualified Code(s): E78.5 - Hyperlipidemia, unspecified Code(s): E78.5 - Hyperlipidemia, unspecified Status: Acute (14) Hypertension: Qualifiers: Hypertension type: unspecified Qualified Code(s): I10 - Essential (primary) hypertension Code(s): I10 - Essential (primary) hypertension Status: Acute (15) Insulin dependent type 2 diabetes mellitus: Code(s): E11.9 - Type 2 diabetes mellitus without complications; Z79.4 - truck terminal manager (current) use of insulin Status: Acute (16) Chronic anticoagulation: Code(s): Z79.01 - [facility] (current) use of anticoagulants Status: Acute (17) Heart failure of unknown type: Code(s): I50.9 - Heart failure, unspecified Status: Acute (18) Acute exacerbation of chronic obstructive pulmonary disease: Code(s): J44.1 - Chronic obstructive pulmonary disease with (acute) exacerbation Status: Acute (19) Acute and chronic respiratory failure with hypoxia: Code(s): J96.21 - Acute and chronic respiratory failure with hypoxia Status: Acute (20) Metastatic adenocarcinoma to liver with unknown primary site: Code(s): C78.7 - Secondary malignant neoplasm of liver and intrahepatic bile duct; C80.1 - Malignant (primary) neoplasm, unspecified Status: Acute (21) Hypoxia: Code(s): R09.02 - Hypoxemia Status: Acute (22) COPD (chronic obstructive pulmonary disease): Qualifiers: COPD type: unspecified COPD Qualified Code(s): J44.9 - Chronic obstructive pulmonary disease, unspecified Code(s): J44.9 - Chronic obstructive pulmonary disease, unspecified Status: Acute Plan Admit patient to a medical unit under full inpatient status Oxygen via nasal cannula ordered to keep O2 sats more than 92% Solu-Medrol 62.5 mg IV x 1
[2023-01-06 13:21] LABS: Glucose Point of Care 176 mg/dl (65-105)
[2023-01-06 15:18] LABS: Potassium 6.1 mmol/L (3.4-5.0)
[2023-01-06] MEDS: INSULIN HUMAN REGULAR (*BKC) 100 UNITS/ML 10 UNITS IV PUSH (16:13)
[2023-01-06] MEDS: SODIUM BICARBONATE 8.4% 50 MEQ/50 ML SYRINGE IV PUSH (16:14)
[2023-01-06] MEDS: DEXTROSE 50% 25 GM/50 ML SYRINGE IV PUSH (16:15)
[2023-01-06 16:39] LABS: Glucose Point of Care 167 mg/dl (65-105)
[2023-01-06 17:37] LABS: Anion Gap 13 mmol/L (8-16); Blood Urea Nitrogen 96 mg/dL (7-17); Calcium 8.9 mg/dL (8.4-10.2); Carbon Dioxide 15 mmol/L (22-30); Chloride 111 mmol/L (98-107); Estimated CRCL calculation 13 ml/min; Estimated Glomerular Filt Rate 17; Glucose 178 mg/dL (65-110); Potassium 5.3 mmol/L (3.4-5.0); Sodium 139 mmol/L (137-145)
--- NOTE | 2023-01-06 18:31 | PC.NURSE ---
No urine output this shift. Pt oriented to self only. Bladder scan shows [address] Carr made aware. Advised to bladder scan in 4 hours.
[2023-01-06 19:55] LABS: Potassium 5.7 mmol/L (3.4-5.0)
[2023-01-06 19:56] LABS: Glucose Point of Care 141 mg/dl (65-105)
[2023-01-06] MEDS: ROSUVASTATIN 10 MG TABLET PO (21:01)
[2023-01-06] MEDS: INSULIN GLARGINE (*BKC) 100 UNITS/ML 15 UNITS SUB-Q (22:04)
[2023-01-06] MEDS: SODIUM POLYSTYRENE SULFONONATE 15 GM/60 ML BTL 30 GM PO (22:08)
[2023-01-07] VITALS (27 sets, daily range): BP systolic 113–150; BP diastolic 42–69; PULSE 73–97; RESP 18–21; TEMP 36.1–36.8; O2SAT 90–100
[2023-01-07] MEDS: ALBUTEROL SULFATE NEB 2.5 MG/3 ML INH INHALATION ×4 (02:15→19:30)
[2023-01-07 04:58] LABS: Basophils Percent Auto 0.2 % (0.2-1.2); Hematocrit 37.5 % (37.0-47.0); Hemoglobin 11.6 g/dL (12.0-15.0); Immature Granulocyte Absolute 0.05 K/mm3 (0.00-0.031); Immature Granulocyte Percent A 0.8 % (0-0.5); Lymphocytes Absolute Auto 0.74 K/mm3 (0.9-3.2); Lymphocytes Percent Auto 11.3 % (18.3-44.2); Mean Corpuscular HGB Conc 30.9 g/dl (32-36); Mean Corpuscular Hemoglobin 27.9 pg (26-34); Mean Corpuscular Volume 90.1 fl (80-100); Mean Platelet Volume 10.2 fl (7.4-10.4); Monocytes Absolute Auto 0.1 K/mm3 (0.1-0.6); Monocytes Percent Auto 1.4 % (2.6-8.5); Neutrophils Absolute Auto 5.7 K/mm3 (1.3-6.7); Neutrophils Percent Auto 86.3 % (45.5-73.1); Platelet Count Result 157 k/mm3 (150-375); Red Blood Count 4.16 M/mm3 (4.2-5.4); Red Cell Distribution Width 15.6 % (11.5-14.5); White Blood Count 6.6 K/mm3 (4.5-10.0)
[2023-01-07 05:15] LABS: Anion Gap 15 mmol/L (8-16); Blood Urea Nitrogen 99 mg/dL (7-17); Calcium 8.9 mg/dL (8.4-10.2); Carbon Dioxide 15 mmol/L (22-30); Chloride 111 mmol/L (98-107); Estimated CRCL calculation 13 ml/min; Estimated Glomerular Filt Rate 15; Glucose 194 mg/dL (65-110); Phosphorus 5.8 mg/dL (2.5-4.5); Potassium 5.2 mmol/L (3.4-5.0); Sodium 141 mmol/L (137-145)
[2023-01-07 06:12] LABS: Digoxin 1.6 ng/mL (0.8-2.0)
[2023-01-07] MEDS: methylPREDNISolone SOD SUCC 125 MG VIAL 60 MG IV PUSH ×3 (07:02→21:43)
[2023-01-07 07:25] LABS: Glucose Point of Care 187 mg/dl (65-105)
[2023-01-07] MEDS: EMPAGLIFLOZIN 10 MG TABLET PO (08:54)
[2023-01-07] MEDS: DIGOXIN TAB 125 MCG TABLET PO (08:54)
[2023-01-07] MEDS: guaiFENesin 12 HR 600 MG TABCR PO ×2 (08:54→21:45)
[2023-01-07] MEDS: APIXABAN 5 MG TABLET PO ×2 (08:54→21:45)
[2023-01-07] MEDS: CYCLOBENZAPRINE HCL 5 MG TABLET PO ×2 (08:54→17:00)
[2023-01-07] MEDS: GABAPENTIN 100 MG CAPSULE 200 MG PO ×2 (08:54→17:00)
[2023-01-07] MEDS: allopurinoL 100 MG TABLET PO (08:54)
[2023-01-07] MEDS: RANOLAZINE 500 MG TAB.ER.12H PO ×2 (08:54→21:45)
[2023-01-07] MEDS: PANTOPRAZOLE 40 MG TABLET PO ×2 (08:55→17:00)
[2023-01-07] MEDS: ISOSORBIDE MONONITRATE 30 MG TAB.ER.24H PO ×2 (08:55→21:45)
[2023-01-07] MEDS: levETIRAcetam 500 MG TABLET PO ×2 (08:55→21:45)
[2023-01-07] MEDS: cilostazoL 50 MG TABLET PO ×2 (09:57→17:02)
--- NOTE | 2023-01-07 11:10 | PM.IMPN ---
Progress Note: A&P Assessment and Plan (1) Altered mental status: Qualifiers: Altered mental status type: unspecified Qualified Code(s): R41.82 - Altered mental status, unspecified Code(s): R41.82 - Altered mental status, unspecified Status: Acute Assessment and Plan: Improved (2) Coarse tremors: Code(s): G25.2 - Other specified forms of tremor Status: Acute (3) Anemia: Code(s): D64.9 - Anemia, unspecified Status: Acute Assessment and Plan: Chronic (4) HEATHER (acute kidney injury): Code(s): N17.9 - Acute kidney failure, unspecified Status: Acute Assessment and Plan: Worsening creatinine from baseline. Continue IV fluids. (5) Dvt femoral (deep venous thrombosis): Code(s): I82.419 - Acute embolism and thrombosis of unspecified femoral vein Status: Acute (6) Acute on chronic respiratory failure: Qualifiers: Respiratory failure complication: hypoxia and hypercapnia Qualified Code(s): J96.21 - Acute and chronic respiratory failure with hypoxia; J96.22 - Acute and chronic respiratory failure with hypercapnia Code(s): J96.20 - Acute and chronic respiratory failure, unspecified whether with hypoxia or hypercapnia Status: Acute Assessment and Plan: Oxygen as needed. Secondary to pneumonia. (7) Pneumonia: Qualifiers: Laterality: left Lung location: lower lobe of lung Pneumonia type: due to unspecified organism Qualified Code(s): J18.9 - Pneumonia, unspecified organism Code(s): J18.9 - Pneumonia, unspecified organism Status: Acute Assessment and Plan: Antibiotics in oxygen as needed. 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 - Congenital cerebral cysts Status: Acute (9) History of lung cancer: Code(s): Z85.118 - Personal history of other malignant neoplasm of bronchus and lung Status: Acute (10) Lesion of vertebra: Code(s): M89.9 - Disorder of bone, unspecified Status: Acute (11) Abnormal mammogram of both breasts: Code(s): R92.8 - Other abnormal and inconclusive findings on diagnostic imaging of breast Status: Acute (12) Seizure disorder: Code(s): G40.909 - Epilepsy, unspecified, not intractable, without status epilepticus Status: Acute Assessment and Plan: Monitor (13) Hyperlipidemia: Qualifiers: Hyperlipidemia type: unspecified Qualified Code(s): E78.5 - Hyperlipidemia, unspecified Code(s): E78.5 - Hyperlipidemia, unspecified Status: Acute Assessment and Plan: Chronic (14) Hypertension: Qualifiers: Hypertension type: unspecified Qualified Code(s): I10 - Essential (primary) hypertension Code(s): I10 - Essential (primary) hypertension Status: Acute Assessment and Plan: Monitor blood pressure (15) Insulin dependent type 2 diabetes mellitus: Code(s): E11.9 - Type 2 diabetes mellitus without complications; Z79.4 - buttermaker continuous churn (current) use of insulin Status: Acute Assessment and Plan: Monitor blood sugar (16) Chronic anticoagulation: Code(s): Z79.01 - group home (current) use of anticoagulants Status: Acute (17) Heart failure of unknown type: Code(s): I50.9 - Heart failure, unspecified Status: Acute Assessment and Plan: Appears compensated at this time. Appears volume depleted. (18) Acute exacerbation of chronic obstructive pulmonary disease: Code(s): J44.1 - Chronic obstructive pulmonary disease with (acute) exacerbation Status: Acute Assessment and Plan: Continue prednisone bronchodilators. (19) Acute and chronic respiratory failure with hypoxia: Code(s): J96.21 - Acute and chronic respiratory failure with hypoxia Status: Acute Assessment and Plan: Likely secondary to pneumonia. (20) Metastatic adenocarcinoma to liver with unknow
[2023-01-07 11:16] LABS: Lactic Acid Reflex 0.6 mmol/L (0.7-2.0)
[2023-01-07] MEDS: AZITHROMYCIN 250 MG TABLET PO (11:28)
[2023-01-07] MEDS: SODIUM CHLORIDE 0.9% IV 1,000 ML 75 ML IV CONT (11:28)
[2023-01-07] MEDS: INSULIN ASPART (*BKC) 100 UNITS/ML SUB-Q ×2 (11:28→17:02)
[2023-01-07 13:21] LABS: Glucose Point of Care 270 mg/dl (65-105)
[2023-01-07 16:14] LABS: Glucose Point of Care 286 mg/dl (65-105)
[2023-01-07 16:45] LABS: Toxigenic C. Diff POSITIVE (NEGATIVE)
[2023-01-07] MEDS: VANCOMYCIN ORAL 125 MG/2.5 ML SYRUP PO ×2 (17:08→23:35)
--- NOTE | 2023-01-07 20:05 | ECG_ITS ---
Measurements Intervals [place] Rate: 85 P: 260 MS: 209 QRS: -5 QRSD: 85 T: 0 QT: 333 QTc: 397 Interpretive Statements SINUS RHYTHM NONSPECIFIC ST & T-WAVE ABNORMALITY ABNORMAL ECG COMPARED TO ECG 01/05/2023 17:21:47 SINUS RHYTHM NOW PRESENT Electronically Signed On 01-08-2023 9:29:03 CDT by David Dunaway M.D.
[2023-01-07 20:25] LABS: Potassium 3.8 mmol/L (3.4-5.0)
[2023-01-07 20:34] LABS: Glucose Point of Care 206 mg/dl (65-105)
[2023-01-07] MEDS: INSULIN GLARGINE (*BKC) 100 UNITS/ML 15 UNITS SUB-Q (21:44)
[2023-01-07] MEDS: ROSUVASTATIN 10 MG TABLET PO (21:46)
[2023-01-08] VITALS (25 sets, daily range): BP systolic 128–143; BP diastolic 50–78; PULSE 57–103; RESP 16–20; TEMP 36.1–36.6; O2SAT 93–100; BMI 20.1
[2023-01-08] MEDS: ALBUTEROL SULFATE NEB 2.5 MG/3 ML INH INHALATION ×4 (01:36→20:55)
[2023-01-08] MEDS: SODIUM CHLORIDE 0.9% IV 1,000 ML 75 ML IV CONT ×2 (01:49→21:28)
--- NOTE | 2023-01-08 02:06 | PC.NURSE ---
Left message on voicemail for granddaughter Jordana to call back regarding pt.
[2023-01-08 05:12] LABS: Hematocrit 33.9 % (37.0-47.0); Hemoglobin 10.1 g/dL (12.0-15.0); Immature Granulocyte Absolute 0.05 K/mm3 (0.00-0.031); Immature Granulocyte Percent A 1.1 % (0-0.5); Lymphocytes Absolute Auto 0.26 K/mm3 (0.9-3.2); Lymphocytes Percent Auto 5.6 % (18.3-44.2); Mean Corpuscular HGB Conc 29.8 g/dl (32-36); Mean Corpuscular Hemoglobin 27.6 pg (26-34); Mean Corpuscular Volume 92.6 fl (80-100); Mean Platelet Volume 10.6 fl (7.4-10.4); Monocytes Absolute Auto 0.1 K/mm3 (0.1-0.6); Monocytes Percent Auto 1.5 % (2.6-8.5); Neutrophils Absolute Auto 4.2 K/mm3 (1.3-6.7); Neutrophils Percent Auto 91.8 % (45.5-73.1); Platelet Count Result 125 k/mm3 (150-375); Red Blood Count 3.66 M/mm3 (4.2-5.4); Red Cell Distribution Width 15.5 % (11.5-14.5); White Blood Count 4.6 K/mm3 (4.5-10.0)
[2023-01-08 05:42] LABS: Burr Cells 1+ (NORMAL); Microcytosis 1+ (NORMAL); Schistocytes None Seen (NORMAL)
[2023-01-08 06:12] LABS: Lactic Acid Reflex 0.6 mmol/L (0.7-2.0)
[2023-01-08 06:13] LABS: Anion Gap 12 mmol/L (8-16); Blood Urea Nitrogen 86 mg/dL (7-17); Calcium 7.9 mg/dL (8.4-10.2); Carbon Dioxide 19 mmol/L (22-30); Chloride 112 mmol/L (98-107); Estimated CRCL calculation 18 ml/min; Estimated Glomerular Filt Rate 22; Glucose 207 mg/dL (65-110); Potassium 3.2 mmol/L (3.4-5.0); Sodium 143 mmol/L (137-145)
[2023-01-08] MEDS: methylPREDNISolone SOD SUCC 125 MG VIAL 60 MG IV PUSH ×3 (06:18→21:27)
[2023-01-08] MEDS: VANCOMYCIN ORAL 125 MG/2.5 ML SYRUP PO ×4 (06:18→23:24)
[2023-01-08] MEDS: FLUTICASONE/UMECLIDIN/VILANTER 100-62.5-25 MCG ELLIPTA 1 PUFF INHALATION (07:30)
[2023-01-08 07:43] LABS: Glucose Point of Care 198 mg/dl (65-105)
[2023-01-08] MEDS: EMPAGLIFLOZIN 10 MG TABLET PO (08:14)
[2023-01-08] MEDS: CYCLOBENZAPRINE HCL 5 MG TABLET PO ×2 (08:14→17:10)
[2023-01-08] MEDS: ISOSORBIDE MONONITRATE 30 MG TAB.ER.24H PO ×2 (08:14→21:27)
[2023-01-08] MEDS: GABAPENTIN 100 MG CAPSULE 200 MG PO ×2 (08:14→17:10)
[2023-01-08] MEDS: APIXABAN 5 MG TABLET PO ×2 (08:14→21:27)
[2023-01-08] MEDS: RANOLAZINE 500 MG TAB.ER.12H PO ×2 (08:14→21:27)
[2023-01-08] MEDS: levETIRAcetam 500 MG TABLET PO ×2 (08:14→21:27)
[2023-01-08] MEDS: guaiFENesin 12 HR 600 MG TABCR PO ×2 (08:14→21:27)
[2023-01-08] MEDS: PANTOPRAZOLE 40 MG TABLET PO ×2 (08:14→17:10)
[2023-01-08] MEDS: DIGOXIN TAB 125 MCG TABLET PO (08:15)
[2023-01-08] MEDS: cilostazoL 50 MG TABLET PO ×2 (08:15→17:10)
[2023-01-08] MEDS: AZITHROMYCIN 250 MG TABLET PO (08:15)
[2023-01-08] MEDS: allopurinoL 100 MG TABLET PO (08:15)
[2023-01-08] MEDS: PROCHLORPERAZINE MALEATE 5 MG TABLET 10 MG PO (08:35)
[2023-01-08] MEDS: POTASSIUM CHLORIDE INJ 40 MEQ in SODIUM CHLORIDE 0.9% IV 500 ML 130 MEQ IVPB (10:02)
--- NOTE | 2023-01-08 11:09 | PM.IMPN ---
Progress Note: A&P Assessment and Plan (1) Altered mental status: Qualifiers: Altered mental status type: unspecified Qualified Code(s): R41.82 - Altered mental status, unspecified Code(s): R41.82 - Altered mental status, unspecified Status: Acute Assessment and Plan: Improved (2) Coarse tremors: Code(s): G25.2 - Other specified forms of tremor Status: Acute (3) Anemia: Code(s): D64.9 - Anemia, unspecified Status: Acute Assessment and Plan: Chronic (4) HEATHER (acute kidney injury): Code(s): N17.9 - Acute kidney failure, unspecified Status: Acute Assessment and Plan: Kidney function is improving. Likely prerenal. Improved with IV fluids. No signs of volume overload, continue IV fluids (5) Dvt femoral (deep venous thrombosis): Code(s): I82.419 - Acute embolism and thrombosis of unspecified femoral vein Status: Acute (6) Acute on chronic respiratory failure: Qualifiers: Respiratory failure complication: hypoxia and hypercapnia Qualified Code(s): J96.21 - Acute and chronic respiratory failure with hypoxia; J96.22 - Acute and chronic respiratory failure with hypercapnia Code(s): J96.20 - Acute and chronic respiratory failure, unspecified whether with hypoxia or hypercapnia Status: Acute Assessment and Plan: Oxygen as needed. Secondary to pneumonia. (7) Pneumonia: Qualifiers: Laterality: left Lung location: lower lobe of lung Pneumonia type: due to unspecified organism Qualified Code(s): J18.9 - Pneumonia, unspecified organism Code(s): J18.9 - Pneumonia, unspecified organism Status: Acute Assessment and Plan: Antibiotics in oxygen as needed. 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 - Congenital cerebral cysts Status: Acute (9) History of lung cancer: Code(s): Z85.118 - Personal history of other malignant neoplasm of bronchus and lung Status: Acute (10) Lesion of vertebra: Code(s): M89.9 - Disorder of bone, unspecified Status: Acute (11) Abnormal mammogram of both breasts: Code(s): R92.8 - Other abnormal and inconclusive findings on diagnostic imaging of breast Status: Acute (12) Seizure disorder: Code(s): G40.909 - Epilepsy, unspecified, not intractable, without status epilepticus Status: Acute Assessment and Plan: Monitor (13) Hyperlipidemia: Qualifiers: Hyperlipidemia type: unspecified Qualified Code(s): E78.5 - Hyperlipidemia, unspecified Code(s): E78.5 - Hyperlipidemia, unspecified Status: Acute Assessment and Plan: Chronic (14) Hypertension: Qualifiers: Hypertension type: unspecified Qualified Code(s): I10 - Essential (primary) hypertension Code(s): I10 - Essential (primary) hypertension Status: Acute Assessment and Plan: Monitor blood pressure (15) Insulin dependent type 2 diabetes mellitus: Code(s): E11.9 - Type 2 diabetes mellitus without complications; Z79.4 - petroleum terminal plant operator (current) use of insulin Status: Acute Assessment and Plan: Monitor blood sugar (16) Chronic anticoagulation: Code(s): Z79.01 - petroleum terminal plant operator (current) use of anticoagulants Status: Acute (17) Heart failure of unknown type: Code(s): I50.9 - Heart failure, unspecified Status: Acute Assessment and Plan: Appears compensated at this time. Appears volume depleted. (18) Acute exacerbation of chronic obstructive pulmonary disease: Code(s): J44.1 - Chronic obstructive pulmonary disease with (acute) exacerbation Status: Acute Assessment and Plan: Continue prednisone bronchodilators. (19) Acute and chronic respiratory failure with hypoxia: Code(s): J96.21 - Acute and chronic respiratory failure with hypoxia Status: Acute Assessment and Plan: Likely secondary
[2023-01-08] MEDS: INSULIN ASPART (*BKC) 100 UNITS/ML SUB-Q ×2 (12:36→17:10)
[2023-01-08 16:27] LABS: Glucose Point of Care 203 mg/dl (65-105)
[2023-01-08 16:27] LABS: Glucose Point of Care 226 mg/dl (65-105)
[2023-01-08 19:49] LABS: Glucose Point of Care 162 mg/dl (65-105)
[2023-01-08] MEDS: ROSUVASTATIN 10 MG TABLET PO (21:27)
[2023-01-08] MEDS: MORPHINE SULFATE (*CRX) 60 MG TABCR PO (21:27)
[2023-01-08] MEDS: INSULIN GLARGINE (*BKC) 100 UNITS/ML 15 UNITS SUB-Q (21:29)
[2023-01-09] VITALS (23 sets, daily range): BP systolic 134–164; BP diastolic 49–83; PULSE 42–112; RESP 16–20; TEMP 36.2–36.8; O2SAT 91–99
[2023-01-09 05:28] LABS: Hematocrit 34.4 % (37.0-47.0); Immature Granulocyte Absolute 0.07 K/mm3 (0.00-0.031); Immature Granulocyte Percent A 1.5 % (0-0.5); Lymphocytes Percent Auto 6.3 % (18.3-44.2); Mean Corpuscular Hemoglobin 27.9 pg (26-34); Mean Corpuscular Volume 87.3 fl (80-100); Mean Platelet Volume 10.3 fl (7.4-10.4); Monocytes Absolute Auto 0.1 K/mm3 (0.1-0.6); Monocytes Percent Auto 2.3 % (2.6-8.5); Neutrophils Absolute Auto 4.3 K/mm3 (1.3-6.7); Neutrophils Percent Auto 89.9 % (45.5-73.1); Platelet Count Result 151 k/mm3 (150-375); Red Blood Count 3.94 M/mm3 (4.2-5.4); Red Cell Distribution Width 15.2 % (11.5-14.5); White Blood Count 4.8 K/mm3 (4.5-10.0)
[2023-01-09] MEDS: methylPREDNISolone SOD SUCC 125 MG VIAL 60 MG IV PUSH (05:34)
[2023-01-09] MEDS: VANCOMYCIN ORAL 125 MG/2.5 ML SYRUP PO ×4 (05:35→23:52)
[2023-01-09 05:42] LABS: Anion Gap 9 mmol/L (8-16); Blood Urea Nitrogen 67 mg/dL (7-17); Calcium 7.9 mg/dL (8.4-10.2); Carbon Dioxide 20 mmol/L (22-30); Chloride 114 mmol/L (98-107); Estimated CRCL calculation 26 ml/min; Estimated Glomerular Filt Rate 35; Glucose 182 mg/dL (65-110); Sodium 143 mmol/L (137-145)
--- NOTE | 2023-01-09 05:57 | ECG_ITS ---
Measurements Intervals Lane Rate: 80 P: SD: 0 QRS: 29 QRSD: 93 T: 0 QT: 283 QTc: 327 Interpretive Statements SUSPECT SINUS RHYTHM WITH LONG FIRST DEGREE AV BLOCK NONSPECIFIC ST & T-WAVE ABNORMALITY ABNORMAL RHYTHM ECG COMPARED TO ECG 01/07/2023 20:22:12 FIRST DEGREE AV BLOCK NOW PRESENT Electronically Signed On 01-09-2023 16:26:04 CDT by Calvin Leung M.D.
[2023-01-09 06:08] LABS: Potassium 3.4 mmol/L (3.4-5.0)
[2023-01-09 06:10] LABS: Magnesium 1.9 mg/dL (1.6-2.3)
[2023-01-09 08:17] LABS: Glucose Point of Care 180 mg/dl (65-105)
[2023-01-09] MEDS: DIGOXIN TAB 125 MCG TABLET PO (08:32)
[2023-01-09] MEDS: RANOLAZINE 500 MG TAB.ER.12H PO ×2 (08:32→21:11)
[2023-01-09] MEDS: GABAPENTIN 100 MG CAPSULE 200 MG PO ×2 (08:32→16:50)
[2023-01-09] MEDS: CYCLOBENZAPRINE HCL 5 MG TABLET PO ×2 (08:32→16:50)
[2023-01-09] MEDS: PANTOPRAZOLE 40 MG TABLET PO ×2 (08:32→16:50)
[2023-01-09] MEDS: guaiFENesin 12 HR 600 MG TABCR PO ×2 (08:32→21:11)
[2023-01-09] MEDS: ISOSORBIDE MONONITRATE 30 MG TAB.ER.24H PO ×2 (08:32→21:12)
[2023-01-09] MEDS: AZITHROMYCIN 250 MG TABLET PO (08:32)
[2023-01-09] MEDS: APIXABAN 5 MG TABLET PO ×2 (08:32→21:11)
[2023-01-09] MEDS: levETIRAcetam 500 MG TABLET PO ×2 (08:32→21:11)
[2023-01-09] MEDS: EMPAGLIFLOZIN 10 MG TABLET PO (08:32)
[2023-01-09] MEDS: cilostazoL 50 MG TABLET PO ×2 (08:33→16:50)
[2023-01-09] MEDS: allopurinoL 100 MG TABLET PO (08:33)
[2023-01-09] MEDS: ALBUTEROL SULFATE NEB 2.5 MG/3 ML INH INHALATION ×3 (09:01→20:50)
[2023-01-09] MEDS: FLUTICASONE/UMECLIDIN/VILANTER 100-62.5-25 MCG ELLIPTA 1 PUFF INHALATION (09:03)
--- NOTE | 2023-01-09 11:24 | PM.IMPN ---
Progress Note: A&P Assessment and Plan (1) Altered mental status: Qualifiers: Altered mental status type: unspecified Qualified Code(s): R41.82 - Altered mental status, unspecified Code(s): R41.82 - Altered mental status, unspecified Status: Acute Assessment and Plan: Improved (2) Coarse tremors: Code(s): G25.2 - Other specified forms of tremor Status: Acute (3) Anemia: Code(s): D64.9 - Anemia, unspecified Status: Acute Assessment and Plan: Chronic (4) HEATHER (acute kidney injury): Code(s): N17.9 - Acute kidney failure, unspecified Status: Acute Assessment and Plan: Kidney function is improving. Likely prerenal. Improved with IV fluids. No signs of volume overload, continue IV fluids (5) Dvt femoral (deep venous thrombosis): Code(s): I82.419 - Acute embolism and thrombosis of unspecified femoral vein Status: Acute (6) Acute on chronic respiratory failure: Qualifiers: Respiratory failure complication: hypoxia and hypercapnia Qualified Code(s): J96.21 - Acute and chronic respiratory failure with hypoxia; J96.22 - Acute and chronic respiratory failure with hypercapnia Code(s): J96.20 - Acute and chronic respiratory failure, unspecified whether with hypoxia or hypercapnia Status: Acute Assessment and Plan: Oxygen as needed. Secondary to pneumonia. (7) Pneumonia: Qualifiers: Laterality: left Lung location: lower lobe of lung Pneumonia type: due to unspecified organism Qualified Code(s): J18.9 - Pneumonia, unspecified organism Code(s): J18.9 - Pneumonia, unspecified organism Status: Acute Assessment and Plan: Antibiotics in oxygen as needed. 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 - Congenital cerebral cysts Status: Acute (9) History of lung cancer: Code(s): Z85.118 - Personal history of other malignant neoplasm of bronchus and lung Status: Acute (10) Lesion of vertebra: Code(s): M89.9 - Disorder of bone, unspecified Status: Acute (11) Abnormal mammogram of both breasts: Code(s): R92.8 - Other abnormal and inconclusive findings on diagnostic imaging of breast Status: Acute (12) Seizure disorder: Code(s): G40.909 - Epilepsy, unspecified, not intractable, without status epilepticus Status: Acute Assessment and Plan: Monitor (13) Hyperlipidemia: Qualifiers: Hyperlipidemia type: unspecified Qualified Code(s): E78.5 - Hyperlipidemia, unspecified Code(s): E78.5 - Hyperlipidemia, unspecified Status: Acute Assessment and Plan: Chronic (14) Hypertension: Qualifiers: Hypertension type: unspecified Qualified Code(s): I10 - Essential (primary) hypertension Code(s): I10 - Essential (primary) hypertension Status: Acute Assessment and Plan: Monitor blood pressure (15) Insulin dependent type 2 diabetes mellitus: Code(s): E11.9 - Type 2 diabetes mellitus without complications; Z79.4 - ferry terminal supervisor (current) use of insulin Status: Acute Assessment and Plan: Monitor blood sugar (16) Chronic anticoagulation: Code(s): Z79.01 - ferry terminal supervisor (current) use of anticoagulants Status: Acute (17) Heart failure of unknown type: Code(s): I50.9 - Heart failure, unspecified Status: Acute Assessment and Plan: Appears compensated at this time. Appears volume depleted. (18) Acute exacerbation of chronic obstructive pulmonary disease: Code(s): J44.1 - Chronic obstructive pulmonary disease with (acute) exacerbation Status: Acute Assessment and Plan: Continue prednisone bronchodilators. (19) Acute and chronic respiratory failure with hypoxia: Code(s): J96.21 - Acute and chronic respiratory failure with hypoxia Status: Acute Assessment and Plan: Likely secondary
[2023-01-09] MEDS: SODIUM CHLORIDE 0.9% IV 1,000 ML 50 ML IV CONT (11:39)
[2023-01-09 12:01] LABS: Glucose Point of Care 201 mg/dl (65-105)
[2023-01-09] MEDS: INSULIN ASPART (*BKC) 100 UNITS/ML SUB-Q (12:47)
[2023-01-09 17:08] LABS: Glucose Point of Care 182 mg/dl (65-105)
[2023-01-09 19:58] LABS: Glucose Point of Care 152 mg/dl (65-105)
[2023-01-09] MEDS: IPRATROPIUM BR 0.02% INH SOLN 0.5 MG/2.5 ML VIAL INHALATION (20:50)
[2023-01-09] MEDS: MORPHINE SULFATE (*CRX) 60 MG TABCR PO (21:12)
[2023-01-09] MEDS: INSULIN GLARGINE (*BKC) 100 UNITS/ML 15 UNITS SUB-Q (21:12)
[2023-01-09] MEDS: ROSUVASTATIN 10 MG TABLET PO (21:13)
[2023-01-10] VITALS (13 sets, daily range): BP systolic 149–159; BP diastolic 70–88; PULSE 74–111; RESP 18–20; TEMP 36.2–37; O2SAT 95–99
--- NOTE | 2023-01-10 01:31 | PC.NURSE ---
01/09 0725 Patient bed alarm going off. This RN to bedside to answer alarm. Patient found on the floor. Patient denied hitting head and was found sitting on her bottom. ornamental ironworking supervisor, day RN, CCT techs and day bellows charger assembler to bedside. No s/s of bleeding or visible wounds present. Day RN reports that she will notify MD and file an incident report.
[2023-01-10] MEDS: ALBUTEROL SULFATE NEB 2.5 MG/3 ML INH INHALATION ×4 (02:05→20:45)
--- NOTE | 2023-01-10 02:11 | PC.NURSE ---
RECEIVD PT FROM IMU PER BED. PT SLEEPING.
[2023-01-10 06:08] LABS: Anion Gap 7 mmol/L (8-16); Blood Urea Nitrogen 47 mg/dL (7-17); Carbon Dioxide 24 mmol/L (22-30); Chloride 112 mmol/L (98-107); Estimated CRCL calculation 32 ml/min; Estimated Glomerular Filt Rate 45; Glucose 112 mg/dL (65-110); Sodium 143 mmol/L (137-145)
[2023-01-10] MEDS: VANCOMYCIN ORAL 125 MG/2.5 ML SYRUP PO ×3 (06:23→17:25)
[2023-01-10] MEDS: SODIUM CHLORIDE 0.9% IV 1,000 ML 50 ML IV CONT (06:24)
--- NOTE | 2023-01-10 07:04 | P.CDI_ITS ---
CDI Query Clarification Request BMI 18.9 Nutritional Diagnostic Statement Severe Protein Calorie Malnutrition related to chronic illness, loss of appetite as evidenced by poor intake < 75% needs> 1 month: weight loss 11% /3 months : NFPE findings of severe muscle wasting and fat loss. Please refer to the comprehensive nutrition assessment for further information. Please clarify severity of protein calorie malnutrition if known: * Mild * Moderate * Severe * Other/Unspecified
--- NOTE | 2023-01-10 07:14 | P.CDI_ITS ---
CDI Query Clarification Request Documented history of CHF. CHF noted in the assessment and plan. Lasix documented as a home medication. Elevated BNP on 01/05/23 lab work. Please specify type and acuity of heart failure if known. * Acute * Chronic * Acute on Chronic * Unknown * Systolic * Diastolic * Combined Systolic and Diastolic * Unknown
--- NOTE | 2023-01-10 07:14 | WPDCDIQUERY2 ---
CDI Query Clarification Request Documented history of CHF. CHF noted in the assessment and plan. Lasix documented as a home medication. Elevated BNP on 01/05/23 lab work. Please specify type and acuity of heart failure if known. Acute Chronic Acute on Chronic Unknown Systolic Diastolic Combined Systolic and Diastolic Unknown
[2023-01-10 08:14] LABS: Glucose Point of Care 119 mg/dl (65-105)
[2023-01-10] MEDS: levETIRAcetam 500 MG TABLET PO ×2 (08:24→20:36)
[2023-01-10] MEDS: RANOLAZINE 500 MG TAB.ER.12H PO ×2 (08:24→20:36)
[2023-01-10] MEDS: CYCLOBENZAPRINE HCL 5 MG TABLET PO ×2 (08:24→17:22)
[2023-01-10] MEDS: guaiFENesin 12 HR 600 MG TABCR PO ×2 (08:25→20:36)
[2023-01-10] MEDS: AZITHROMYCIN 250 MG TABLET PO (08:25)
[2023-01-10] MEDS: MORPHINE SULFATE (*CRX) 60 MG TABCR PO ×2 (08:25→20:36)
[2023-01-10] MEDS: PANTOPRAZOLE 40 MG TABLET PO ×2 (08:25→17:22)
[2023-01-10] MEDS: predniSONE 20 MG TABLET 40 MG PO (08:25)
[2023-01-10] MEDS: allopurinoL 100 MG TABLET PO (08:25)
[2023-01-10] MEDS: EMPAGLIFLOZIN 10 MG TABLET PO (08:25)
[2023-01-10] MEDS: GABAPENTIN 100 MG CAPSULE 200 MG PO ×2 (08:26→17:22)
[2023-01-10] MEDS: APIXABAN 5 MG TABLET PO ×2 (08:26→20:36)
[2023-01-10] MEDS: ISOSORBIDE MONONITRATE 30 MG TAB.ER.24H PO ×2 (08:26→20:36)
[2023-01-10] MEDS: DIGOXIN TAB 125 MCG TABLET PO (08:27)
[2023-01-10] MEDS: cilostazoL 50 MG TABLET PO ×2 (08:31→17:25)
[2023-01-10] MEDS: FLUTICASONE/UMECLIDIN/VILANTER 100-62.5-25 MCG ELLIPTA 1 PUFF INHALATION (08:58)
[2023-01-10 12:23] LABS: Glucose Point of Care 118 mg/dl (65-105)
[2023-01-10 17:15] LABS: Glucose Point of Care 138 mg/dl (65-105)
--- NOTE | 2023-01-10 17:53 | PM.IMPN ---
Progress Note: A&P Assessment and Plan (1) Altered mental status: Qualifiers: Altered mental status type: unspecified Qualified Code(s): R41.82 - Altered mental status, unspecified Code(s): R41.82 - Altered mental status, unspecified Status: Acute (2) Anemia: Code(s): D64.9 - Anemia, unspecified Status: Acute (3) HEATHER (acute kidney injury): Code(s): N17.9 - Acute kidney failure, unspecified Status: Acute (4) Pneumonia: Qualifiers: Laterality: left Lung location: lower lobe of lung Pneumonia type: due to unspecified organism Qualified Code(s): J18.9 - Pneumonia, unspecified organism Code(s): J18.9 - Pneumonia, unspecified organism Status: Acute Plan AMS. TM HEATHER, improved pneumonia, improving. o2 prn plan for patient to return to SNF on hospice. awaiting clearance DNR Subjective Date/time seen: 01/10/23 17:53 Interval history: NAOE. pt remains confused. but has no complaints Review of Systems Cardiovascular: Cardiovascular: Denies chest pain and Denies dyspnea Respiratory: Respiratory: Denies cough and Denies dyspnea Gastrointestinal: Gastrointestinal: Denies abdominal pain and Denies vomiting Exam Const: General: no acute distress, alert and Physically active Resp: Effort & Inspection: normal respiratory effort Auscultation: crackles Cardio: Rate: regular rate Rhythm: regular rhythm Heart sounds: S1 normal heart sound present and S2 normal heart sound present GI: Inspection: non-distended GI Palp: No abdominal tenderness Auscultation: normal bowel sounds Extrem: Right upper extremity: no edema Objective Data Vital Signs Vital Signs: Vital Signs - 24 hr 01/09/23 18:00 01/09/23 19:50 01/09/23 20:50 Temperature 98.3 F Pulse Rate 97 60 101 H Respiratory Rate 18 18 Blood Pressure 160/52 H Pulse Oximetry 94 Oxygen Delivery Oxygen Flow Rate Fraction of Inspired Oxygen 01/09/23 21:00 01/09/23 21:00 01/09/23 20:00 Temperature Pulse Rate 93 107 H Respiratory Rate 18 Blood Pressure Pulse Oximetry 92 Oxygen Delivery Nasal Cannula Oxygen Flow Rate 2 Fraction of Inspired Oxygen 28 01/09/23 22:00 01/09/23 20:00 01/09/23 23:35 Temperature Pulse Rate 65 105 H Respiratory Rate Blood Pressure Pulse Oximetry 92 Oxygen Delivery Nasal Cannula Oxygen Flow Rate 2 Fraction of Inspired Oxygen 01/09/23 23:28 01/10/23 02:05 01/10/23 02:56 Temperature 97.6 F Pulse Rate 78 96 91 Respiratory Rate 20 20 20 Blood Pressure 134/49 L Pulse Oximetry 95 Oxygen Delivery Oxygen Flow Rate Fraction of Inspired Oxygen 01/10/23 03:56 01/10/23 08:27 01/10/23 08:58 Temperature 97.8 F Pulse Rate 83 88 Respiratory Rate 20 Blood Pressure 159/84 H Pulse Oximetry 99 95 Oxygen Delivery Nasal Cannula Oxygen Flow Rate 2 Fraction of Inspired Oxygen 28 01/10/23 08:58 01/10/23 09:11 01/10/23 08:00 Temperature Pulse Rate 97 96 Respiratory Rate 18 18 Blood Pressure Pulse Oximetry 95 Oxygen Delivery Nasal Cannula Oxygen Flow Rate 2 Fraction of Inspired Oxygen 01/10/23 13:50 01/10/23 14:01 01/10/23 16:00 Temperature 98.6 F Pulse Rate 97 99 74 Respiratory Rate 18 18 19 Blood Pressure 154/88 H Pulse Oximetry 98 Oxygen Delivery Oxygen Flow Rate Fraction of Inspired Oxygen Intake/Output Intake/Output: Intake & Output 01/07/23 01/08/23 01/09/23 01/10/23 23:59 23:59 23:59 23:59 Intake Total 1170 3120 1775 2142 Output Total 600 2150 2050 Balance 570 970 -275 2142 Meds/Results Medications: Active Medications Generic Name Dose Route Start Last Admin Trade Name Freq PRN Reason Stop Dose Admin Acetaminophen 650 mg 01/06/23 02:22 Acetaminophen 325 Mg Tablet PO Q4H PRN Mild Pain (1-3) or Fever Acetaminophen 325 mg 01/06/23 02:26 Acetaminophen 325 Mg Tablet
[2023-01-10] MEDS: TIZANIDINE HCL 2 MG TABLET PO (20:36)
[2023-01-10] MEDS: ROSUVASTATIN 10 MG TABLET PO (20:36)
[2023-01-10] MEDS: ACETAMINOPHEN 325 MG TABLET 650 MG PO (20:36)
[2023-01-10] MEDS: INSULIN GLARGINE (*BKC) 100 UNITS/ML 15 UNITS SUB-Q (20:37)
[2023-01-10 20:48] LABS: Glucose Point of Care 142 mg/dl (65-105)
[2023-01-11] VITALS (8 sets, daily range): BP systolic 148–155; BP diastolic 72–78; PULSE 93–118; RESP 20–22; TEMP 36.2–36.3; O2SAT 94–98
[2023-01-11] MEDS: SODIUM CHLORIDE 0.9% IV 1,000 ML 50 ML IV CONT (00:16)
[2023-01-11] MEDS: VANCOMYCIN ORAL 125 MG/2.5 ML SYRUP PO ×3 (00:16→11:45)
[2023-01-11] MEDS: ALBUTEROL SULFATE NEB 2.5 MG/3 ML INH INHALATION ×3 (03:05→14:11)
[2023-01-11] MEDS: FLUTICASONE/UMECLIDIN/VILANTER 100-62.5-25 MCG ELLIPTA 1 PUFF INHALATION (07:42)
[2023-01-11 08:06] LABS: Glucose Point of Care 101 mg/dl (65-105)
[2023-01-11] MEDS: PANTOPRAZOLE 40 MG TABLET PO (08:10)
[2023-01-11] MEDS: EMPAGLIFLOZIN 10 MG TABLET PO (08:12)
[2023-01-11] MEDS: guaiFENesin 12 HR 600 MG TABCR PO (08:12)
[2023-01-11] MEDS: MORPHINE SULFATE (*CRX) 60 MG TABCR PO (08:12)
[2023-01-11] MEDS: ISOSORBIDE MONONITRATE 30 MG TAB.ER.24H PO (08:12)
[2023-01-11] MEDS: DIGOXIN TAB 125 MCG TABLET PO (08:12)
[2023-01-11] MEDS: allopurinoL 100 MG TABLET PO (08:12)
[2023-01-11] MEDS: CYCLOBENZAPRINE HCL 5 MG TABLET PO (08:12)
[2023-01-11] MEDS: RANOLAZINE 500 MG TAB.ER.12H PO (08:12)
[2023-01-11] MEDS: APIXABAN 5 MG TABLET PO (08:12)
[2023-01-11] MEDS: GABAPENTIN 100 MG CAPSULE 200 MG PO (08:12)
[2023-01-11] MEDS: cilostazoL 50 MG TABLET PO (08:12)
--- NOTE | 2023-01-11 08:12 | PM.DS ---
DS: Admitting Diagnosis Discharge Date 01/11/23 Admitting Diagnosis hypoxia and altered mental status DS: Discharge Diagnosis Discharge Diagnosis (1) Altered mental status: Qualifiers: Altered mental status type: unspecified Qualified Code(s): R41.82 - Altered mental status, unspecified Code(s): R41.82 - Altered mental status, unspecified Status: Acute (2) HEATHER (acute kidney injury): Code(s): N17.9 - Acute kidney failure, unspecified Status: Acute (3) Acute on chronic respiratory failure: Qualifiers: Respiratory failure complication: hypoxia and hypercapnia Qualified Code(s): J96.21 - Acute and chronic respiratory failure with hypoxia; J96.22 - Acute and chronic respiratory failure with hypercapnia Code(s): J96.20 - Acute and chronic respiratory failure, unspecified whether with hypoxia or hypercapnia Status: Acute DS: Summary Hospital Course Hospital Course: 67F w/ multiple comorbidities. Please see Dr. Dasilva H&P for fine detail. She was admitted from SNF for altered mental status, just about the time where she was going to be transitioned to hospice care. Family planning is still consistent with hospice care, and so she will be discharged back to SNF with that plan in mind. Time spent discussing smoking cessation with patient: more than 10 minutes Time Spent with Patient Time attestation: Total time spent providing and/or coordinating discharge services: Exam Const: General: no acute distress Other: appears confused, lethargic Resp: Auscultation: crackles Cardio: Rate: regular rate Rhythm: regular rhythm Extrem: General: no edema DS: Data Data Completed and Pending Labs on day of discharge: Labs from last 24 hours 01/11/23 01/10/23 01/10/23 08:03 20:35 17:06 POC Capillary Glucose 101 142 H 138 H 01/10/23 01/10/23 12:20 08:10 POC Capillary Glucose 118 H 119 H Discharge Plan Discharge Attending physician on discharge: Em Miles Consulting providers: Jessenia Valenzuela Discharging Clinician: Em Miles Patient Disposition: SNF Activity: no preference Diet: as tolerated Patient Instructions: Apixaban (By mouth), Heart Failure (DC), How to Stop Smoking (DC), Safe Use of Anticoagulants (DC) Stand Alone Forms: General Discharge Information, [facility] Discharge Discharge Medications: No Action levetiracetam [Keppra] 500 mg Tablet 500 mg PO Q12H omeprazole 40 mg Capsule,Delayed Release(Dr/Ec) 40 mg PO DAILY furosemide 40 mg Tablet 40 mg PO DAILY isosorbide mononitrate 30 mg Tablet Extended Release 24 Hr 30 mg PO BID prochlorperazine maleate 10 mg Tablet 10 mg PO Q6H PRN (Reason: NAUSEA) morphine 60 mg Tablet Extended Release 60 mg PO Q12H digoxin 125 mcg (0.125 mg) Tablet 125 mcg PO DAILY gabapentin 100 mg Capsule 200 mg PO BID rosuvastatin 10 mg Tablet 10 mg PO HS bisacodyl 10 mg Suppository 10 mg RECTAL DAILY PRN (Reason: Constipation) Rx Instructions: if no results from milk of magnesia cefuroxime axetil 250 mg Tablet 250 mg PO Q12H Rx Instructions: starts 01/04/23, ends 01/11/23 magnesium citrate Solution 300 ml PO DAILY PRN (Reason: Constipation) Rx Instructions: in am if no results after enema. Combivent Respimat 20-100 mcg/actuation mist 2 puff INHALATION Q12H calcium-vitamin D3 See Rx Instructions .ROUTE .COMPLEX Rx Instructions: calcium 600mg/vitamin d3 20mcg, 1 tablet bid Eliquis 5 mg tablet 5 mg PO BID acetaminophen 325 mg Tablet 325 mg PO Q6H PRN (Reason: Pain (Scale Score 1-3)) magnesium hydroxide [Milk of Magnesia] 400 mg/5 mL Suspension 30 ml PO HS PRN (Reason: Constipation) Rx Instructions: if no bm in 3 days metformin 1,000 mg tablet 1,000 mg PO BIDWM potassium chloride 20 mEq Tablet Extended R
[2023-01-11] MEDS: levETIRAcetam 500 MG TABLET PO (08:13)
[2023-01-11] MEDS: predniSONE 20 MG TABLET 40 MG PO (08:13)
[2023-01-11 12:21] LABS: Glucose Point of Care 151 mg/dl (65-105)
[2023-01-11 12:34] LABS: SARS-CoV-2 RNA PCR Negative (Negative)
== END 2023-01-11 14:35 | DRG 193 ==
LOC: ANHED 21:43 → ANH3MEDSUR 22:27 → ANHIMU 23:08 → ANH2MED 01-10 01:47
PROVIDERS: Chiropractor; General Practice; Preventive Medicine Aerospace Medicine; Admitting Provider Family Medicine; Emergency Provider Nurse Practitioner; PCP Internal Medicine; Visit Provider Family Medicine
DX: J18.9 Pneumonia, unspecified organism (principal); E43 Unspecified severe protein-calorie malnutrition; J96.21 Acute and chronic respiratory failure with hypoxia; J44.0 Chronic obstructive pulmonary disease with (acute) lower respiratory infection; C78.7 Secondary malignant neoplasm of liver and intrahepatic bile duct; N17.9 Acute kidney failure, unspecified; J44.1 Chronic obstructive pulmonary disease with (acute) exacerbation; I50.32 Chronic diastolic (congestive) heart failure; A04.72 Enterocolitis due to Clostridium difficile, not specified as recurrent; I11.0 Hypertensive heart disease with heart failure; C80.1 Malignant (primary) neoplasm, unspecified; D64.9 Anemia, unspecified; G40.909 Epilepsy, unspecified, not intractable, without status epilepticus; G25.2 Other specified forms of tremor; E11.42 Type 2 diabetes mellitus with diabetic polyneuropathy; E78.5 Hyperlipidemia, unspecified; F17.210 Nicotine dependence, cigarettes, uncomplicated; Z20.822 Contact with and (suspected) exposure to COVID-19; Z66 Do not resuscitate; Z86.718 Personal history of other venous thrombosis and embolism; Z79.4 Long term (current) use of insulin; Z79.01 Long term (current) use of anticoagulants; Z99.81 Dependence on supplemental oxygen
CPT/HCPCS: 36415; 36600; 70450; 71045; 80048; 80053; 80162; 81001; 82805; 82948; 83605; 83735; 83880; 84100; 84132; 84260; 84484; 85025; 85610; 85730; 87040; 87493; 87635; 87636; 93005; 94002; 94640; 96365; 96375; 99285; A9270; J0612; J0696; J1815; J1940; J2930; J3480; J7030; J7040; J7512